=== PATIENT | male | born 1975 | race Caucasian/White ===

== ENCOUNTER 2020-10-02 11:01 | Outpatient (REF) | payer OTHER, SELFPAY ==
--- NOTE | 2020-10-02 | CT_ITS ---
EXAMINATION: CT SINUS WITHOUT CONTRAST CLINICAL INFORMATION: Recurrent sinusitis. COMPARISON: None TECHNIQUE: Axial 2 mm thin and reformatted 2 mm thin sagittal and coronal images of the sinuses were obtained. This CT examination was performed using dose optimization techniques as appropriate, variously including the following: *Automated exposure control *Adjustment of mA and/or kV according to patient size (this includes techniques or standardized protocols for targeted exams where dose is matched to indication/reason for exam; i.e. extremities or head) *Use of iterative reconstruction technique DLP: 123 mGy-cm FINDINGS: There is mild mucoperiosteal thickening in the left frontal, right sphenoid and right middle ethmoid sinuses. The rest of the paranasal sinuses are clear. A small sinolith is seen in the left frontal sinus. The bony sinus stephenson are intact. The lamina papyracea and the cribriform plate are normal. The bilateral ostiomeatal complexes and the frontoethmoidal recesses are widely patent. NASAL CAVITY/NASOPHARYNX: Mild deviation of the nasal septum to the left with a small bony spur is noted. The turbinates are symmetrical and normal. ADDITIONAL RELEVANT FINDINGS: No periapical disease is seen. The TMJs articulate normally. The orbits and skull base soft tissues are unremarkable. The middle ear cavities and mastoid air cells are clear. Limited evaluation demonstrates no acute intracranial findings. CT/CT sinus wo con IMPRESSION: Mild mucoperiosteal thickening in the left frontal, right ethmoid and right sphenoid sinuses. The drainage pathways are widely patent. Suspect a small sinolith in the left frontal sinus.
== END 2020-10-02 11:02 | disposition home or self-care (01) ==
LOC: HO.CT 11:01
PROVIDERS: PCP Nurse Practitioner Family; Visit Provider Hospitalist
DX: J32.9 Chronic sinusitis, unspecified (principal)
CPT/HCPCS: 70486

== ENCOUNTER → 2020-10-10 14:59 | Outpatient (BNVA) | payer OTHER, SELFPAY | PROVIDERS: PCP Nurse Practitioner Family; Visit Provider Internal Medicine | DX: I25.10 Atherosclerotic heart disease of native coronary artery without angina pectoris (principal); E66.01 Morbid (severe) obesity due to excess calories; Z68.42 Body mass index [BMI] 45.0-49.9, adult; Z79.899 Other long term (current) drug therapy; Z95.5 Presence of coronary angioplasty implant and graft | CPT/HCPCS: 99212 ==

== ENCOUNTER 2021-03-27 10:34 | Outpatient (REF) | payer OTHER, SELFPAY ==
--- NOTE | ~2021-03-27 | US_ITS ---
EXAMINATION: US ABDOMEN COMPLETE CLINICAL INFORMATION: Upper abdominal pain, unspecified. COMPARISON: None TECHNIQUE: Real-time imaging of the abdominal viscera. Examination mildly limited secondary to overlying bowel gas. FINDINGS: PANCREAS: Partially visualized portions of the pancreatic head are normal in appearance. ABDOMINAL AORTA: Visualized portion of the proximal, mid and distal abdominal aorta are normal in caliber. INFERIOR VENA CAVA: Visualized portions are normal. LIVER: The liver is normal in size. The liver contour is normal. Liver echogenicity is diffusely increased. No focal hepatic lesion. There is no intrahepatic biliary duct dilatation seen. GALLBLADDER: The gallbladder is physiologically distended. There are a few areas of minimal gallbladder wall thickening with at least one punctate calcification within the gallbladder wall. Some ill-defined echogenic foci of the posterior gallbladder wall possibly represent calcifications or layering tiny gallstones/gravel. Negative sonographic Lopez's sign. COMMON BILE DUCT: Normal in caliber measuring 0.5 cm in diameter. RIGHT KIDNEY: Normal. No hydronephrosis. No renal calculi or focal parenchymal lesions. The kidney measures 12.5 cm in maximum dimension. LEFT KIDNEY: The kidney measures 12.3 cm in maximum dimension. There is a 1.5 cm midpole cyst with what appears to be a peripheral associated 4 mm calcification. No renal calculi or hydronephrosis. SPLEEN: The spleen measures 12.6 cm in maximum dimension. FREE FLUID: None. US/US abdomen complete IMPRESSION: 1. Diffusely increased liver echogenicity. This is a nonspecific finding but most suggestive of hepatic steatosis. Correlation with liver enzymes recommended. 2. Mild areas of gallbladder wall thickening with suspected mild areas of gallbladder wall calcification versus layering tiny gallstones/gravel. The differential includes but is not limited to adenomyomatosis and cholelithiasis. Clinical correlation recommended. Follow-up ultrasound imaging can be obtained. CT imaging of the abdomen may also provide additional diagnostic information. 3. Small 1.5 cm cyst of the left kidney with associated 4 mm calcification.
[2021-03-27 14:05] LABS: MANUAL DIFF FLAG NO
[2021-03-27 14:16] LABS: Basophils Percent Auto 0.4 % (0-2); Eosinophils Absolute Auto 0.1 X10*3/uL (0.0-0.4); Eosinophils Percent Auto 1.4 % (0-4); Hematocrit 48.5 % (42-52); Hemoglobin 16.3 g/dl (14.0-18.0); Imm Gran Abs Auto 0.04 X10*3/uL (0.00-0.03); Imm Gran Pct Auto 0.4 % (0.0-0.4); Lymphocytes Absolute Auto 1.6 X10*3/uL (1.2-4.9); Lymphocytes Percent Auto 18.1 % (20-40); Mean Corpuscular HGB Conc 33.6 g/dl (31.0-36.0); Mean Corpuscular Hemoglobin 28.2 pg (27.0-33.0); Mean Corpuscular Volume 84.1 fL (80-98); Mean Platelet Volume 11.2 fL (9.4-12.4); Monocytes Absolute Auto 0.8 X10*3/uL (0.1-1.2); Monocytes Percent Auto 8.9 % (2-11); Neutrophils Absolute Auto 6.4 X10*3/uL (2.0-8.3); Neutrophils Percent Auto 70.8 % (45-73); Platelet Count 249 X10*3/uL (160-400); Red Blood Count 5.77 X10*6/uL (4.60-5.80); Red Cell Distribution Width 13.2 % (11.0-16.0); White Blood Count 9.1 X10*3/uL (4.8-10.8)
[2021-03-27 14:45] LABS: Alanine Aminotransferase 650 U/L (0-40); Albumin Level 4.7 g/dL (3.5-5.0); Alkaline Phosphatase 249 U/L (39-117); Amylase 66 U/L (28-100); Anion Gap 14 (12-20); Aspartate Amino Transferase 369 U/L (5-37); Bilirubin Total 3.3 mg/dL (0.0-1.0); Blood Urea Nitrogen 15 mg/dL (9-16); Calcium 9.1 mg/dL (8.4-10.2); Carbon Dioxide 28 mmol/L (22-29); Chloride 102 mmol/L (96-108); Cholesterol 132 mg/dL; Estimated Glomerular Filt Rate > 60; Glucose Fasting 86 mg/dL (60-99); HDL Cholesterol 37 mg/dL; LDL Cholesterol Calculated 71 mg/dl; Lipase 28 U/L (8-78); Sodium 140 mmol/L (135-145); Total Protein 7.3 g/dL (6.5-8.0); Triglycerides 120 mg/dL
== END 2021-03-27 10:35 | disposition home or self-care (01) ==
LOC: HO.HMGCX 10:34
PROVIDERS: PCP Nurse Practitioner Family; Visit Provider Internal Medicine
DX: R10.10 Upper abdominal pain, unspecified (principal); I25.10 Atherosclerotic heart disease of native coronary artery without angina pectoris; E78.5 Hyperlipidemia, unspecified
CPT/HCPCS: 36415; 76700; 80053; 80061; 82150; 83690; 85025

== ENCOUNTER 2021-03-27 16:43 | Inpatient (IN) | payer OTHER, SELFPAY ==
--- NOTE | ~2021-03-27 | XR_ITS ---
EXAMINATION: XR CHEST CLINICAL INFORMATION: Cough COMPARISON: 11/03/2019 TECHNIQUE: Frontal view of the chest was obtained. FINDINGS: The lungs are well expanded. There is no focal consolidation, edema, or effusion. No pneumothorax. The cardiomediastinal silhouette is within normal limits. No acute osseous abnormality. XR/XR chest 1V IMPRESSION: Clear lungs.
--- NOTE | ~2021-03-27 | CT_ITS ---
EXAMINATION: CT ABDOMEN AND PELVIS WITH CONTRAST CLINICAL INFORMATION: Right upper quadrant/epigastric pain. Cholelithiasis with elevated enzymes. COMPARISON: Ultrasound from today. TECHNIQUE: Multidetector volumetric images were obtained from the superior aspect of the liver through the pubic symphysis following administration 85 mL of Omnipaque 350 intravenous contrast. Sagittal and coronal reformatted images were obtained on the technologist's workstation. Oral contrast: No This CT examination was performed using dose optimization techniques as appropriate, variously including the following: *Automated exposure control *Adjustment of mA and/or kV according to patient size (this includes techniques or standardized protocols for targeted exams where dose is matched to indication/reason for exam; i.e. extremities or head) *Use of iterative reconstruction technique DLP: 1255 mGy-cm FINDINGS: LUNG BASES: The visualized lung bases are unremarkable. LIVER, GALLBLADDER, AND BILIARY TREE: The liver is normal in size, shape, and attenuation. No focal hepatic lesion or biliary ductal dilatation is present. Contracted gallbladder with multiple gallstones. Stones in the gallbladder neck. Suspect gallbladder wall thickening. No pericholecystic fluid. PANCREAS: Unremarkable. SPLEEN: Unremarkable. ADRENAL GLANDS: Unremarkable. KIDNEYS AND URETERS: The kidneys are normal in size, shape, and attenuation. No hydronephrosis, hydroureter, or calculi seen. No perinephric stranding. Left midpole 1.1 cm simple cyst. No follow-up recommended. BLADDER: Unremarkable. GASTROINTESTINAL TRACT: The stomach is unremarkable. Normal caliber small bowel. No obstruction. Normal appendix. No colonic wall thickening or acute inflammatory change. ABDOMINAL WALL: No significant hernia is appreciated. LYMPH NODES: Normal. VASCULAR: Normal caliber aorta with mild atherosclerotic calcification. PELVIC VISCERA: The prostate and seminal vesicles are unremarkable. OSSEOUS STRUCTURES: No acute or suspicious osseous abnormality. Mild degenerative changes of the spine and hips. CT/CT abdomen pelvis w con IMPRESSION: Cholelithiasis. Contracted gallbladder which limits evaluation of the gallbladder wall, but the wall appears thickened. This may represent cholecystitis given the appearance on prior ultrasound as well.
--- NOTE | ~2021-03-27 | FL_ITS ---
EXAMINATION: XR FLUOROSCOPY WITH IMAGES. Intraoperative cholangiogram. CLINICAL INFORMATION: Cholecystitis. COMPARISON: CT scan abdomen pelvis 03/27/2021. Ultrasound of abdomen 03/27/2021 TECHNIQUE: Fluoroscopy performed by Dr. Salinas. Fluoroscopy time: 30.4 seconds DAP: 19.52 mGy Images: 4 FINDINGS: Spot views obtained over the right upper quadrant after contrast injected into cystic duct. There is good opacification of the CBD and intrahepatic ducts with no filling defect. There is no ductal stricture or evidence of a mass. Contrast seen flowing into the duodenum without obstruction of the bile duct. FL/FL guidance in OR IMPRESSION: Normal intraoperative cholangiogram.
[2021-03-27 17:07] VITALS: BP 198/94; PULSE 89; RESP 16; TEMP 36.6; O2SAT 98; BMI 46.0
--- NOTE | 2021-03-27 21:47 | ED_ITS ---
HPI - Recheck/Abnormal Lab/Rx General Chief Complaint: Recheck/Abnormal Lab/Rx Stated Complaint: abnormal labs Time Seen by Provider: 03/27/21 21:45 Source: patient Mode of arrival: ambulatory History of Present Illness HPI narrative: This is a 45-year-old male with significant past medical history for CAD has had a stent and now presents with increasing frequency of right upper quadrant/epigastric pain with radiation into the back and denies regular alcohol use and this is been associated with chills as well as nausea without vomiting. Patient states in the past it would continue to subside but last night was very strong and when he was evaluated by his primary care provider today he was noted to have elevated liver enzymes and evidence on ultrasound of cholelithiasis. He was instructed to come in by his primary care provider for further evaluation. Related Data Home Medications Medication Instructions Recorded Confirmed aspirin 81 mg tablet,delayed 81 mg PO DAILY 10/10/20 03/27/21 release cetirizine 10 mg tablet 10 mg PO DAILY 10/10/20 03/27/21 Previous Rx's Medication Instructions Recorded cholecalciferol (vitamin D3) 50 50 mcg PO DAILY 90 Days #90 tab 10/30/20 mcg (2,000 unit) tablet metoprolol succinate 50 mg 50 mg PO DAILY #90 tab 10/30/20 tablet,extended release 24 hr amlodipine 10 mg tablet 10 mg PO DAILY #30 tab 11/27/20 clopidogrel 75 mg tablet 75 mg PO DAILY #90 tab 02/21/21 atorvastatin 80 mg tablet 80 mg PO DAILY #90 tab 03/21/21 omeprazole 40 mg capsule,delayed 40 mg PO DAILY #30 cap 03/27/21 release Allergies Allergy/AdvReac Type Severity Reaction Status Date / Time No Known Allergies Allergy Verified 03/27/21 09:47 Review of Systems Review of Systems: Pertinent positives and negatives as stated in HPI and 10 point review of systems is otherwise negative. [facility] Past Medical History Source: nursing notes reviewed Medical History Atherosclerotic cardiovascular disease Dyslipidemia Essential hypertension Morbid obesity CAROLYN (obstructive sleep apnea) Upper abdominal pain Surgical History History of cardiac catheterization (~08/2018) History of tonsillectomy Family History Family History Father Hypertension Social History Social History Alcohol intake: never Smoking Status: Former smoker Advance Directives: No Advance Directives Information Provided: Yes Physical Exam Vital Signs: Vital Signs: Last Vital Signs Temp 97.6 F 03/28/21 01:40 Pulse 70 03/28/21 01:40 Resp 18 03/28/21 01:40 BP 153/87 H 03/28/21 01:40 Pulse Ox 98 03/28/21 01:40 Body Mass Index 46.0 VITAL SIGNS: Reviewed. GENERAL: Morbidly obese, Well developed, well nourished, in no acute distress. HEAD: Normocephalic/atraumatic, EYES: PERRLA, EOMI OROPHARYNX: no oral lesions noted, posterior pharynx clear NECK: Supple, no adenopathy LUNGS: Normal breath sounds. No adventitious sounds or accessory muscle use. SpO2<98> CARDIOVASCULAR: Regular rate and rhythm without noted murmurs, no JVD or lower extremity edema. ABDOMEN: Soft, minimal right upper quadrant pain, non-distended with bowel sounds, no CVA tenderness. SKIN: Inspection of the skin reveals no rashes NEUROLOGIC: Alert and oriented x 4. Course Course Course Narrative: 45-year-old male with history and clinical presentation consistent with cholelithiasis with elevated enzymes suggestive of possible Mirizzi. 0120: I discussed case again with surgical services who is agreeable for admission after lab work. Although there is a noted down trending of LFTs this may suggest an initial gallbladder insult. Reevaluation(s) Reevaluation #1: I discussed the case with Surgical Services, who recommends repeating the lab work, to see which direction patient's values are trending, but feels that this is not consistent with a more it sees or gallbladder etiology despite the presence of cholelithiasis. Time: 23:55 Reevaluation #2: Patient endorses that he does not drink alcohol and that he received the [employer] COVID-19 vaccine on 03/02/2021. Time: 00:10 MDM - Recheck/Abnormal Lab/Rx Lab Data Result diagrams: 03/28/21 00:21 03/28/21 00:21 Labs: Lab Results 04/03/28/21 03/28/21 Range/Units 22:33 00:21 00:21 WBC 10.1 (4.8-10.8) X10*3/uL RBC 5.65 (4.60-5.80) X10*6/uL Hgb 16.0 (14.0-18.0) g/dl Hct 47.5 (42-52) % MCV 84.1 (80-98) fL MCH 28.3 (27.0-33.0) pg MCHC 33.7 (31.0-36.0) g/dl RDW 13.2 (11.0-16.0) % Plt Count 236 (160-400) X10*3/uL MPV 10.4 (9.4-12.4) fL Immature Gran % (Auto) 0.2 (0.0-0.4) % Neut % (Auto) 66.9 (45-73) % Lymph % (Auto) 23.1 (20-40) % [place] % (Auto) 7.4 (2-11) % Eos % (Auto) 1.7 (0-4) % Baso % (Auto) 0.7 (0-2) % Lymph # (Auto) 2.3 (1.2-4.9) X10*3/uL [place] # (Auto) 0.7 (0.1-1.2) X10*3/uL Eos # (Auto) 0.2 (0.0-0.4) X10*3/uL Baso # (Auto) 0.1 (0.0-0.2) X10*3/uL Abs Immat Gran (auto) 0.02 (0.00-0.03) X10*3/uL Absolute Neuts (auto) 6.7 (2.0-8.3) X10*3/uL Absolute Nucleated RBC 0.000 (0.0-0.012) X10*3/uL Nucleated RBC % (auto) 0.0 (0.0-0.2) /100WBC PT 12.7 (10.8-13.0) SEC INR 1.1 (0.9-1.1) APTT 49.3 H (24.1-38.0) SEC Sodium 139 (135-145) mmol/L Potassium 3.9 (3.3-5.1) mmol/L Chloride 103 (96-108) mmol/L Carbon Dioxide 25 (22-29) mmol/L Anion Gap 15 (12-20) BUN 17 H (9-16) mg/dL Creatinine 1.30 (0.5-1.4) mg/dL Estim Creat Clear Calc 106.6 Estimated GFR 60 Random Glucose 87 (60-115) mg/dL Calcium 9.2 (8.4-10.2) mg/dL Total Bilirubin 1.8 H (0.0-1.0) mg/dL AST 279 H (5-37) U/L ALT 640 H (0-40) U/L Alkaline Phosphatase 295 H (39-117) U/L Total Protein 7.3 (6.5-8.0) g/dL Albumin 4.6 (3.5-5.0) g/dL COVID-19 (JOLIE) (Negative) COVID-19 Clin Com 03/28/21 Range/Units 01:03 WBC (4.8-10.8) X10*3/uL RBC (4.60-5.80) X10*6/uL Hgb (14.0-18.0) g/dl Hct (42-52) % MCV (80-98) fL MCH (27.0-33.0) pg MCHC (31.0-36.0) g/dl RDW (11.0-16.0) % Plt Count (160-400) X10*3/uL MPV (9.4-12.4) fL Immature Gran % (Auto) (0.0-0.4) % Neut % (Auto) (45-73) % Lymph % (Auto) (20-40) % [place] % (Auto) (2-11) % Eos % (Auto) (0-4) % Baso % (Auto) (0-2) % Lymph # (Auto) (1.2-4.9) X10*3/uL [place] # (Auto) (0.1-1.2) X10*3/uL Eos # (Auto) (0.0-0.4) X10*3/uL Baso # (Auto) (0.0-0.2) X10*3/uL Abs Immat Gran (auto) (0.00-0.03) X10*3/uL Absolute Neuts (auto) (2.0-8.3) X10*3/uL Absolute Nucleated RBC (0.0-0.012) X10*3/uL Nucleated RBC % (auto) (0.0-0.2) /100WBC PT (10.8-13.0) SEC INR (0.9-1.1) APTT (24.1-38.0) SEC Sodium (135-145) mmol/L Potassium (3.3-5.1) mmol/L Chloride (96-108) mmol/L Carbon Dioxide (22-29) mmol/L Anion Gap (12-20) BUN (9-16) mg/dL Creatinine (0.5-1.4) mg/dL Estim Creat Clear Calc Estimated GFR Random Glucose (60-115) mg/dL Calcium (8.4-10.2) mg/dL Total Bilirubin (0.0-1.0) mg/dL AST (5-37) U/L ALT (0-40) U/L Alkaline Phosphatase (39-117) U/L Total Protein (6.5-8.0) g/dL Albumin (3.5-5.0) g/dL COVID-19 (JOLIE) Negative (Negative) COVID-19 Clin Com See Note ECG Data Attestation: I personally reviewed and interpreted this ECG as follows: Prior ECG tracings: available for review (11/23/2018 no acute changes on comparison) Interpretation: Normal sinus rhythm, HR-76, no evidence of acute ischemia, CT/QRS were within normal limits. Discharge Plan Discharge Clinical Impression: Cholecystitis Patient Disposition: Admitted As Inpatient
--- NOTE | 2021-03-27 21:58 | PC.NURSE ---
at bedside for primary eval.
--- NOTE | 2021-03-27 22:34 | PC.NURSE ---
IV established, labs obtained. Pt ambulating to CT with a steady gait.
[2021-03-27 22:44] LABS: INTERNATIONAL NORM RATIO 1.1 (0.9-1.1); Prothrombin Time 12.7 SEC (10.8-13.0)
[2021-03-27] MEDS: iohexoL 350 MG/ML 100 ML INFUS..BTL IV (22:46)
[2021-03-27 22:49] LABS: Partial Thromboplastin Time 49.3 SEC (24.1-38.0)
[2021-03-28] VITALS (19 sets, daily range): BP systolic 141–180; BP diastolic 68–105; PULSE 66–87; RESP 16–20; TEMP 36.1–36.6; O2SAT 91–99; BMI 46.0
[2021-03-28 00:25] LABS: MANUAL DIFF FLAG NO
[2021-03-28 00:26] LABS: Basophils Absolute Auto 0.1 X10*3/uL (0.0-0.2); Basophils Percent Auto 0.7 % (0-2); Eosinophils Absolute Auto 0.2 X10*3/uL (0.0-0.4); Eosinophils Percent Auto 1.7 % (0-4); Hematocrit 47.5 % (42-52); Imm Gran Abs Auto 0.02 X10*3/uL (0.00-0.03); Imm Gran Pct Auto 0.2 % (0.0-0.4); Lymphocytes Absolute Auto 2.3 X10*3/uL (1.2-4.9); Lymphocytes Percent Auto 23.1 % (20-40); Mean Corpuscular HGB Conc 33.7 g/dl (31.0-36.0); Mean Corpuscular Hemoglobin 28.3 pg (27.0-33.0); Mean Corpuscular Volume 84.1 fL (80-98); Mean Platelet Volume 10.4 fL (9.4-12.4); Monocytes Absolute Auto 0.7 X10*3/uL (0.1-1.2); Monocytes Percent Auto 7.4 % (2-11); Neutrophils Absolute Auto 6.7 X10*3/uL (2.0-8.3); Neutrophils Percent Auto 66.9 % (45-73); Platelet Count 236 X10*3/uL (160-400); Red Blood Count 5.65 X10*6/uL (4.60-5.80); Red Cell Distribution Width 13.2 % (11.0-16.0); White Blood Count 10.1 X10*3/uL (4.8-10.8)
[2021-03-28 01:02] LABS: Alanine Aminotransferase 640 U/L (0-40); Albumin Level 4.6 g/dL (3.5-5.0); Alkaline Phosphatase 295 U/L (39-117); Anion Gap 15 (12-20); Aspartate Amino Transferase 279 U/L (5-37); Bilirubin Total 1.8 mg/dL (0.0-1.0); Blood Urea Nitrogen 17 mg/dL (9-16); Calcium 9.2 mg/dL (8.4-10.2); Carbon Dioxide 25 mmol/L (22-29); Chloride 103 mmol/L (96-108); Creatinine Clr Calc Pharmacy 106.6; Estimated Glomerular Filt Rate 60; Glucose Random 87 mg/dL (60-115); Potassium 3.9 mmol/L (3.3-5.1); Sodium 139 mmol/L (135-145); Total Protein 7.3 g/dL (6.5-8.0)
--- NOTE | 2021-03-28 01:22 | PC.NURSE ---
Pt refusing to provide UA.
--- NOTE | 2021-03-28 01:24 | PC.NURSE ---
MD at bedside discussing plan to admit.
[2021-03-28 01:25] LABS: COVID-19 Test Negative (Negative); IDNOW Serial# 9DD0AD1C
--- NOTE | 2021-03-28 01:38 | ECG_ITS ---
Test Reason : PREOP Blood Pressure : / mmHG Vent. Rate : 076 BPM Atrial Rate : 076 BPM P-R Int : 144 ms QRS Dur : 080 ms QT Int : 424 ms P-R-T Axes : 029 -02 027 degrees QTc Int : 477 ms Normal sinus rhythm Normal ECG When compared with ECG of 23-NOV-2018 01:02, No significant change was found Referred By: Amara Burkett Electronically Signed By:SHERIE ERIC MD
[2021-03-28 02:16] LABS: INTERNATIONAL NORM RATIO 1.1 (0.9-1.1); Prothrombin Time 12.9 SEC (10.8-13.0)
[2021-03-28] MEDS: 0.9 % Sodium Chloride 1,000 ML 80 ML IVCONT ×2 (02:24→20:05)
[2021-03-28] MEDS: Piperacillin Sodium/Tazobactam 3.375 GM in 0.9 % Sodium Chloride 50 ML IV ×3 (02:24→18:47)
--- NOTE | 2021-03-28 02:24 | PC.NURSE ---
This RN contacting MD Salinas regarding BCX. Per , no BCX needed prior to administering Zosyn. septic technician at bedside for EKG. Pt aware of pending UA. Continue to monitor.
[2021-03-28] MEDS: amLODIPine Besylate 10 MG TABLET PO (02:42)
[2021-03-28] MEDS: Omeprazole 40 MG CAPSULE.DR PO (02:42)
[2021-03-28] MEDS: Atorvastatin Calcium 80 MG TABLET PO (02:43)
[2021-03-28] MEDS: Metoprolol Succinate ER 50 MG TAB.ER.24H PO (02:43)
--- NOTE | 2021-03-28 02:44 | PC.NURSE ---
Medicated per MAR. VSS.
--- NOTE | 2021-03-28 03:23 | PC.NURSE ---
Med Rec complete at bedside with pt.
--- NOTE | 2021-03-28 05:43 | PC.NURSE ---
UA obtained and sent.
[2021-03-28 05:51] LABS: Glucose Urine UA NEG (NEG); Leukocyte Esterase Urine NEG (NEG); Nitrite Urine NEG (NEG); PH 5.5 (5.0-8.0); Specific Gravity - Urine 1.015 (1.005-1.025); Urine Blood NEG (NEG); Urine Ketones NEG (NEG); Urine Protein NEG (NEG-TRACE)
[2021-03-28 05:56] LABS: Appearance Urine CLEAR; Color Urine AMBER; UACC Culture Trigger NO
[2021-03-28] MEDS: Lactated Ringers 1,000 ML 20 ML IVCONT (13:24)
--- NOTE | 2021-03-28 14:00 | PM.HPGS ---
History of Present Illness History of Present Illness Date of Service: 03/28/21 Chief complaint: Cholecystitis Narrative: Kin Calderón is a 45 year old male with a 2 to three-month history of epigastric pain that was 7 to 8/10 on a pain scale and stabbing in nature. He reports the pain would radiate to his back. This pain is intermittent and may be associated with eating although he cannot remember if it is associated with the eating because he did not keep track. He is not sure whether fatty foods or other types of foods make it worse. Patient was evaluated by his primary care doctor and sent for an ultrasound and blood work yesterday. His blood work showed a total bilirubin in the 3 range with AST and ALT that are also elevated in the 300-600 range. Patient had a right upper quadrant ultrasound that showed gallstones in the gallbladder with no definitive gallbladder wall thickening or pericholecystic fluid. Patient reports he continued to have epigastric pain and came to the emergency department yesterday for this pain. Patient reports his last meal was 2 days ago. His pain ended around 17:00 last evening while he was being evaluated in the emergency department. He reports he has had no further abdominal pain since being in the emergency department. Patient denies any excessive flatulence, fever, chills, shortness of breath, chest pain. Patient reports having normal bowel habits and denies any changes in urination. Patient had a CT scan abdomen and pelvis when he came to the emergency department which corroborated findings on ultrasound there was no evidence of biliary duct dilation. Patient had repeat liver function test which showed a decreasing bilirubin now down to 1.8 from 3 and half range also with decreasing AST but ALT was about the same. Of note the patient does have a history of coronary artery stenting in 2007 for which he takes aspirin and Plavix which he has not taken in about 24 hours. Review of Systems Constitutional: Constitutional: Denies chills, Denies difficulty sleeping, Denies excessive sweating, Denies fatigue, Denies fever(s), Denies headache(s), Denies night sweats, Denies weakness and Denies weight loss Eyes: Eyes: Denies blurry vision, Denies diplopia and Denies eye discharge ENT: Reports Normal hearing present, Denies change in voice, Denies headache(s), Denies neck mass, Denies sore throat, Denies throat swelling and Denies tongue swelling Cardiovascular: Cardiovascular: Denies chest pain, Denies chest pain at rest, Denies chest pain with activity, Denies edema, Denies leg edema and Denies dyspnea on exertion Respiratory: Respiratory: Denies cough, Denies excessive phlegm production, Denies dyspnea on exertion, Denies stridor and Denies wheezing Gastrointestinal: Gastrointestinal: Reports abdominal pain, Denies melena, Denies bloating, Denies hematochezia, Denies constipation, Denies heartburn, Denies nausea and Denies vomiting Genitourinary: Genitourinary: Denies hematuria, Denies dysuria, Denies urinary hesitancy, Denies urinary incontinence and Denies urinary urgency Musculoskeletal: Musculoskeletal: Denies back pain, Denies arthralgias and Denies muscle weakness Integumentary/Breasts: Skin/Breast: Denies breast swelling, Denies breast pain, Denies breast mass, Denies change in pigmentation, Denies new lesions and Denies rash Neurologic: Reports Normal hearing present, Denies confusion, Denies headache(s), Denies lack of coordination, Denies focal weakness, Denies paresthesias and Denies weakness Psychiatric: Psychiatric: Denies anxiety, Denies confusion and Denies depression Endocrine: Endocrine: Denies cold intolerance, Denies excessive sweating and Denies fatigue Hematologic/Lymphatic: Hematologic/Lymphatic: Denies easy bleeding, Denies easy bruising and Denies lymphadenopathy Allergic/Immunologic: Allergic/Immunologic: Denies urticaria, Denies throat swelling, Denies tongue swelling and Denies wheezing PMFSH Past Medical History Medical History (Updated 03/28/21 @ 14:06 by Roslyn Montenegro MD) Atherosclerotic cardiovascular disease Cholelithiasis Dyslipidemia Essential hypertension Morbid obesity CAROLYN (obstructive sleep apnea) Family History Family History (Updated 03/28/21 @ 14:09 by Roslyn Montenegro MD) Father Hypertension Coronary artery disease Kidney failure Mother No problems noted. Maternal Grandfather Coronary artery disease History of heart attack Brother Crohn's disease Sister No problems noted. Sister No problems noted. Sister No problems noted. Surgical History Surgical History (Updated 03/28/21 @ 14:06 by Roslyn Montenegro MD) History of arthroscopy of left knee History of cardiac catheterization (~08/2018) History of heart artery stent History of tonsillectomy Social History Social History (Updated 03/28/21 @ 14:11 by Roslyn Montenegro MD) Alcohol intake: current Alcohol intake frequency: holidays/special occasions only Smoking Status: Current every day smoker Packs Per Day: 1 Years Smoked: 30 Smoked in Last 30 Days: Yes Patient Interested in Nicotine Replacement: No Use of substances other than those prescribed or required for medical reasons: No Advance Directives: No Advance Directives Information Provided: Yes Recently lost weight without trying: No Meds Allergies Allergy/AdvReac Type Severity Reaction Status Date / Time No Known Allergies Allergy Verified 03/28/21 14:11 Active Medications: Current Medications Generic Name Dose Route Start Last Admin Trade Name Freq PRN Reason Stop Dose Admin Acetaminophen 650 mg 03/28/21 01:29 Acetaminophen Supp 650 Mg Supp.Rect SC Q6H PRN Fever >100.4 Amlodipine Besylate 10 mg 03/29/21 09:00 Amlodipine Besylate 10 Mg Tablet PO DAILY [facility] Protocol Aspirin 81 mg 03/29/21 09:00 Aspirin Enteric Coated 81 Mg Tablet.Dr PO DAILY [facility] Atorvastatin Calcium 80 mg 03/29/21 09:00 Atorvastatin Calcium 80 Mg Tablet PO DAILY [facility] Diphenhydramine HCl 25 mg 03/28/21 01:29 Diphenhydramine Hcl 25 Mg Tablet PO Q4H PRN itching Sodium Chloride 1,000 mls @ 80 mls/hr 03/28/21 01:30 03/28/21 02:24 Ns IVCONT 80 mls/hr .[id number] ABY Administration Piperacillin Sod/Tazobactam 50 mls @ 100 mls/hr 03/28/21 10:00 03/28/21 12:22 Sod 3.375 gm/ Sodium Chloride IV Infused Q6H ABY Infusion Loratadine 10 mg 03/29/21 09:00 Loratadine 10 Mg Tablet PO DAILY [facility] Metoprolol Succinate 50 mg 03/29/21 09:00 Metoprolol Succinate Er 50 Mg Tab.Er.24h PO DAILY [facility] Protocol Morphine Sulfate 2 mg 03/28/21 01:29 Morphine Sulfate 2 Mg/Ml Cartridge IVPUSH Q3H PRN Pain, Moderate (Pain Scale 4-6 Morphine Sulfate 4 mg 03/28/21 01:29 Morphine Sulfate 4 Mg/Ml Cartridge IVPUSH Q3H PRN Pain, Severe (Pain Scale 7-10) Ondansetron HCl 4 mg 03/28/21 01:29 Ondansetron Hcl 4 Mg/2 Ml Vial IVPUSH Q4H PRN Nausea Oxycodone HCl 5 mg 03/28/21 01:29 Oxycodone Hcl Immed Release 5 Mg Tablet PO Q3H PRN Pain, Moderate (Pain Scale 4-6 Oxycodone HCl 10 mg 03/28/21 01:29 Oxycodone Hcl Immed Release 5 Mg Tablet PO Q3H PRN Pain, Severe (Pain Scale 7-10) Sodium Chloride 3 ml 03/28/21 08:00 0.9 % Sodium Chloride Flush 3 Ml Syringe [facility] Home Medications Medication Instructions Recorded Confirmed Last Taken Type aspirin 81 mg tablet,delayed 81 mg PO DAILY 10/10/20 03/28/21 03/26/21 History release cetirizine 10 mg tablet 10 mg PO DAILY 10/10/20 03/28/21 03/26/21 History Physical Exam Vital Signs: Vital Signs: Last Vital Signs Temp 97.8 F 03/28/21 13:27 Pulse 66 03/28/21 13:27 Resp 16 03/28/21 13:27 BP 180/94 H 03/28/21 13:27 Pulse Ox 98 03/28/21 13:27 Body Mass Index 46.0 Const: General: No confusion Orientation/consciousness: patient oriented x3 and No confusion HENMT: Head: Yes normal to inspection, Yes normocephalic and Yes atraumatic Ears: hearing grossly normal bilaterally Mouth: Normal oral and palatal mucosa present Teeth and gingiva: dentition normal Throat: Yes posterior oropharynx normal Eyes: General: appearance normal, both eyes and all related structures Eyelids: Yes eyelids normal Conjunctivae: conjunctivae normal Sclerae: sclerae normal EOM: EOMs intact bilaterally Neck: Neck: Yes normal visual inspection, Yes full ROM, Yes no lymphadenopathy, Yes trachea midline and Yes no JVD Thyroid: Thyroid normal Lymphatic: no lymphadenopathy noted Resp: Effort & Inspection: normal respiratory effort and able to speak in complete sentences Auscultation: clear to auscultation bilaterally Cardio: Jugular venous distension: no JVD Rate: regular rate Heart sounds: S1 normal heart sound present, S2 normal heart sound present, no click, no gallops, no murmurs and no rubs GI: Inspection: No Abdominal wall edema, No distended, No incision and Yes obesity Palpation (GI): Soft to palpation, nontender, no guarding, not rigid, hepatosplenomegaly present, no hernias and no masses Percussion: Yes normal to percussion Rectal Exam - Male: Yes deferred Skin: General skin exam: no rashes or lesions noted Trauma: no lacerations or abrasions Neuro: General: patient oriented x3, no focal motor deficits and No confusion Cranial nerves: Yes Normal hearing present Cognition (Neuro): normal cognition Extrem: General: Yes normal to inspection, Yes full ROM, Yes no clubbing, cyanosis or edema, Yes no pedal edema and Yes no calf tenderness Results Results Labs: Short CBC 03/28/21 Range/Units 00:21 WBC 10.1 (4.8-10.8) X10*3/uL Hgb 16.0 (14.0-18.0) g/dl Hct 47.5 (42-52) % Plt Count 236 (160-400) X10*3/uL BMP 03/28/21 00:21 Sodium 139 Potassium 3.9 Chloride 103 Carbon Dioxide 25 BUN 17 H Creatinine 1.30 Calcium 9.2 Liver Function 03/28/21 Range/Units 00:21 Total Bilirubin 1.8 H (0.0-1.0) mg/dL AST 279 H (5-37) U/L ALT 640 H (0-40) U/L Alkaline Phosphatase 295 H (39-117) U/L Albumin 4.6 (3.5-5.0) g/dL Urine 03/28/21 Range/Units 05:43 Urine Color ROBBY Urine Appearance CLEAR Urine pH 5.5 (5.0-8.0) Ur Specific [place] 1.015 (1.005-1.025) Urine Protein NEG (NEG-TRACE) MG/DL Urine Glucose (UA) NEG (NEG) MG/DL Assessment and Plan (1) Cholecystitis: Status: Acute This is a 45-year-old gentleman with 2-3 months history of likely biliary colic who presented yesterday with worsening epigastric abdominal pain and was found to have elevated bilirubins. Ultrasound shows possible focal mild thickening of the gallbladder wall which may be an early cholecystitis but is likely not given that the patient has no clinical symptoms currently. Patient's bilirubins are decreasing as well as some of the other liver function tests. Patient may have had a common bile duct stone that he passed. We will take the patient to the operating room for laparoscopic cholecystectomy with intraoperative cholangiogram if that can be performed to rule out common bile duct stone. If there is a common bile duct stone that is found the patient will have a postoperative ERCP. If there is no common bile duct stone found we will repeat liver function test tomorrow and slowly advance patient's diet. We have held aspirin and Plavix and I plan to restart aspirin postoperatively but to hold Plavix for another couple of days postoperatively. Risks benefits and alternatives were discussed with the patient and he agrees to proceed. I spent 1 hour of time with this patient performed a history and physical examination reviewing all laboratory values and radiologic studies and discussing this case with his cell biologist as well as documenting. (2) Atherosclerotic cardiovascular disease: Status: Acute Patient has a history of coronary artery stent his cell biologist is Dr. Rodgers. I have discussed this case with his cell biologist and he reports the patient is able to proceed with surgery but should have aspirin restarted postoperatively. We will follow these recommendations.
--- NOTE | 2021-03-28 17:30 | PM.OP ---
Brief Operative Note Date of Service: 03/28/21 Pre-op diagnosis: Elevated liver function tests and cholelithiasis Post-op diagnosis: same Procedure: Laparoscopic cholecystectomy with intraoperative cholangiogram Implants: Surgical clips Surgeon: Roslyn Montenegro MD Anesthesia: GETA Estimated blood loss (mL): 5 Pathology: other (Gallbladder) Condition: stable Disposition: PACU
--- NOTE | 2021-03-28 17:31 | P.OP_ITS ---
Operative Note Operative Note Date of Service: 03/28/21 Narrative: Patient was brought into the operating room, placed on operating table in the supine position. Normal DVT prophylaxis was instituted. Patient received 3.375 g of IV Zosyn preoperatively. General anesthesia was induced. The abdomen was prepped and draped in the normal sterile fashion using ChloraPrep. A safety time-out was performed. Next a mixture of 1% lidocaine with epinephrine and 0.25% Marcaine plain was used to anesthetize the planned incision site in the supraumbilical position. A 11. Scalpel was used to make a 2 cm supraumbilical l transverse surgical incision through which the subcutaneous tissues were dissected down to level the fascia. The fascia was grasped did between 2 Janeth clamps and entered using a 11. Scalpel for about 1 cm vertically. An 0 Vicryl suture was placed on either side of the open fascia. A finger was used to bluntly gain access to the intra-abdominal cavity. A 12 mm Altamirano trocar was introduced into the abdomen and secured to the abdominal wall using sutures on the fascia. The abdomen was insufflated to 15 mmHg. Next a 5 mm 30 degree laparoscope was introduced into the abdomen and used to survey the abdominal cavity which was normal. Next 3 additional 5 mm ports were placed. One port was placed in the epigastrium to the right of the falciform ligament, 2 ports were placed in the right upper quadrant 1 laterally and 1 more medially. The patient was placed in reverse Trendelenburg and left side tilted down. A grasper was placed through the right lateral port and used to grasp the fundus of the gallbladder and retracted it cephalad. Another grasper was used to grasp the infundibulum of the gallbladder retracted inferior and laterally. We cleared the cystic artery and cystic duct circumferentially and the distal 1/3 of the gallbladder with the gallbladder fossa. This gave us the critical view of safety. We created a small incision using laparoscopic scissors in the cystic duct. We placed an aero catheter in the right upper quadrant abdominal wall and placed the angio catheter through this air 0 cholangiocatheter. We placed the cholangiocatheter into the cystic duct and kept in place using a 5 mm clip roller staker. We flushed the duct with normal saline and there was no evidence of any leakage from the opening in the cystic duct. We then removed all of her laparoscopic ports and the camera and performed an on-table cholangiogram. There was normal filling of the common bile duct and the proximal biliary tree and normal emptying of the bile into the small intestine. There was no evidence of filling defects. We did obtain a formal radiologic read that document to the same. We then removed the cholangiocatheter and clip on the cystic duct. We then placed 3 clips on the cystic duct distal to the gallbladder 1 clip on the cystic duct proximal to the gallbladder. We placed 1 clip on the cystic artery proximal to the gallbladder and 2 clips on the cystic artery distal to the gallbladder and transected both structures in between clips. We took the remainder of the gallbladder off the gallbladder fossa and placed in Endo-Catch bag and removed it from the abdomen. We then evaluated the gallbladder fossa it was hemostatic there was no evidence of any bile draining or any bleeding noted. The clips were in place on the cystic artery and cystic duct stumps. We then removed the 5 mm ports under direct vision there was no bleeding noted from these port sites. We desufflated the abdomen through the last remaining port and removed the last port and laparoscope. We reapproximated the fascial defect at the umbilicus using a [id number] 0 Vicryl suture and tied the original fascial sutures over that closure. There was no residual fascial defect. We placed an additional amount of local anesthetic into the fascia closure site. We closed all skin incisions with a 4 Monocryl subcuticular stitch. We cleaned and dried the skin and applied Dermabond skin glue to all skin incisions. All counts were correct at the end the case there were no complications. The patient was awake and in stable condition prior to extubation and transfer to the recovery room.
--- NOTE | 2021-03-28 17:35 | P.DS_ITS ---
DS: Providers Provider Date of Service: 03/29/21 Date of admission: 03/28/21 01:58 Date of discharge: 03/28/21 Primary care physician: Micky Palacios [facility] Admitting clinician: Roslyn Montenegro Attending physician on admission: Roslyn Montenegro Consults: None Attending physician on discharge: Roslyn Montenegro Discharging clinician: Roslyn Montenegro DS: Diagnosis Discharge Diagnosis (1) Cholelithiasis: Status: Acute (2) Elevated liver function tests: Status: Acute DS: Medications Discharge Medications Home Medications: Home Medications Medication Instructions Recorded Confirmed aspirin 81 mg tablet,delayed 81 mg PO DAILY 10/10/20 03/28/21 release cetirizine 10 mg tablet 10 mg PO DAILY 10/10/20 03/28/21 Previous Rx's Medication Instructions Recorded cholecalciferol (vitamin D3) 50 50 mcg PO DAILY 90 Days #90 tab 10/30/20 mcg (2,000 unit) tablet metoprolol succinate 50 mg 50 mg PO DAILY #90 tab 10/30/20 tablet,extended release 24 hr amlodipine 10 mg tablet 10 mg PO DAILY #30 tab 11/27/20 clopidogrel 75 mg tablet 75 mg PO DAILY #90 tab 02/21/21 atorvastatin 80 mg tablet 80 mg PO DAILY #90 tab 03/21/21 DS: Summary Hospital Course Hospital Course: This is a 45-year-old gentleman who was admitted on the [employer]person flowers 03/28/2021 with elevated liver function tests with a total bilirubin and a 3 and half range and several month history of epigastric pain. Patient had an ultrasound that showed gallstones. Repeat liver function test did show an improvement in b ilirubins and transaminases. Bilirubin decreased to 1.8. Patient was no longer having abdominal pain but given the elevation in liver function tests and gallstones on ultrasound there was a question of whether there was a common bile duct stone. Patient was taken to the operating room for laparoscopic cholecystectomy with intraoperative cholangiogram to rule out common bile duct stones. Patient tolerated the procedure well and had a laparoscopic cholecystectomy uneventfully. Intraoperative cholangiogram showed no evidence of common bile duct filling defect and no evidence of obstruction. Patient was transferred to the postanesthesia care unit was started on a diet. Patient stayed overnight given some abdominal discomfort and some nausea after surgery. On postoperative day 1. The patient is tolerating regular diet and was discharged home. Patient was offered smoking cessation which he refused. Time spent discussing smoking cessation with patient: 3 to 10 minutes Status at Discharge Functional status at discharge: independent ambulation Overall status at discharge: patient is back to baseline Time Spent with Patient Time attestation: Total time spent providing and/or coordinating discharge services: Discharge coordination time: Less than 30 minutes Physical Exam Vital Signs: Vital Signs: Last Vital Signs Temp 97.8 F 03/28/21 13:27 Pulse 66 03/28/21 13:27 Resp 16 03/28/21 13:27 BP 180/94 H 03/28/21 13:27 Pulse Ox 98 03/28/21 13:27 Body Mass Index 46.0 Const: Other: Please see full H&P dictated on the same date for full physical exam DS: Data Data Completed and Pending Labs on day of discharge: Laboratory Results - last 24 hr 03/27/21 03/28/21 03/28/21 22:33 00:21 00:21 WBC 10.1 RBC 5.65 Hgb 16.0 Hct 47.5 MCV 84.1 MCH 28.3 MCHC 33.7 RDW 13.2 Plt Count 236 MPV 10.4 Immature Gran % (Auto) 0.2 Neut % (Auto) 66.9 Lymph % (Auto) 23.1 [place] % (Auto) 7.4 Eos % (Auto) 1.7 Baso % (Auto) 0.7 Lymph # (Auto) 2.3 [place] # (Auto) 0.7 Eos # (Auto) 0.2 Baso # (Auto) 0.1 Abs Immat Gran (auto) 0.02 Absolute Neuts (auto) 6.7 Absolute Nucleated RBC 0.000 Nucleated RBC % (auto) 0.0 PT 12.7 INR 1.1 APTT 49.3 H Sodium 139 Potassium 3.9 Chloride 103 Carbon Dioxide 25 Anion Gap 15 BUN 17 H Creatinine 1.30 Estim Creat Clear Calc 106.6 Estimated GFR 60 Random Glucose 87 Calcium 9.2 Total Bilirubin 1.8 H AST 279 H ALT 640 H Alkaline Phosphatase 295 H Total Protein 7.3 Albumin 4.6 Urine Color Urine Appearance Urine pH Ur Specific [place] Urine Protein Urine Glucose (UA) Urine Ketones Urine Blood Urine Nitrite Ur Leukocyte Esterase COVID-19 (JOLIE) COVID-19 Clin Com Blood Type Antibody Screen 03/28/21 03/28/21 03/28/21 01:03 02:05 02:05 WBC RBC Hgb Hct MCV MCH MCHC RDW Plt Count MPV Immature Gran % (Auto) Neut % (Auto) Lymph % (Auto) [place] % (Auto) Eos % (Auto) Baso % (Auto) Lymph # (Auto) [place] # (Auto) Eos # (Auto) Baso # (Auto) Abs Immat Gran (auto) Absolute Neuts (auto) Absolute Nucleated RBC Nucleated RBC % (auto) PT 12.9 INR 1.1 APTT Sodium Potassium Chloride Carbon Dioxide Anion Gap BUN Creatinine Estim Creat Clear Calc Estimated GFR Random Glucose Calcium Total Bilirubin AST ALT Alkaline Phosphatase Total Protein Albumin Urine Color Urine Appearance Urine pH Ur Specific [place] Urine Protein Urine Glucose (UA) Urine Ketones Urine Blood Urine Nitrite Ur Leukocyte Esterase COVID-19 (JOLIE) Negative COVID-19 [place] Com See Note Blood Type O Positive Antibody Screen NEGATIVE 03/28/21 05:43 WBC RBC Hgb Hct MCV MCH MCHC RDW Plt Count MPV Immature Gran % (Auto) Neut % (Auto) Lymph % (Auto) [place] % (Auto) Eos % (Auto) Baso % (Auto) Lymph # (Auto) [place] # (Auto) Eos # (Auto) Baso # (Auto) Abs Immat Gran (auto) Absolute Neuts (auto) Absolute Nucleated RBC Nucleated RBC % (auto) PT INR APTT Sodium Potassium Chloride Carbon Dioxide Anion Gap BUN Creatinine Estim Creat Clear Calc Estimated GFR Random Glucose Calcium Total Bilirubin AST ALT Alkaline Phosphatase Total Protein Albumin Urine Color ROBBY Urine Appearance CLEAR Urine pH 5.5 Ur Specific [place] 1.015 Urine Protein NEG Urine Glucose (UA) NEG Urine Ketones NEG Urine Blood NEG Urine Nitrite NEG Ur Leukocyte Esterase NEG COVID-19 (JOLIE) COVID-19 Clin Com Blood Type Antibody Screen Discharge Plan Discharge Patient Disposition: Home, Self-Care Discharge Diagnosis: cholelithiasis and elevated LFTs s/p lap cholecystectomy and IOC Referrals: Micky Palacios [id number] [Primary Care Provider] - 1 Week Discharge Medications: New oxycodone 5 mg capsule 5 mg PO TID PRN (Reason: pain) Qty: 20 RF: 0 docusate sodium [Colace] 100 mg capsule 100 mg PO DAILY Qty: 30 RF: 0 Continued cholecalciferol (vitamin D3) 50 mcg (2,000 unit) tablet 50 mcg PO DAILY 90 Days Qty: 90 RF: 2 metoprolol succinate 50 mg tablet extended release 24 hr 50 mg PO DAILY Qty: 90 RF: 1 amlodipine 10 mg tablet 10 mg PO DAILY Qty: 30 RF: 11 atorvastatin 80 mg tablet 80 mg PO DAILY Qty: 90 RF: 3 cetirizine 10 mg tablet 10 mg PO DAILY RF: 0 Held clopidogrel 75 mg tablet 75 mg PO DAILY Qty: 90 RF: 0 Hold Instructions: Resume on 03/31/21. aspirin 81 mg tablet,delayed release (DR/EC) 81 mg PO DAILY RF: 0 Hold Instructions: Resume on 03/29/21. Discharge Orders: Discharge Order (Routine); Ordered 03/29/21 Ordered By: Kristine Whitehead Diet: regular diet Activity on Discharge: No heavy lifting Stand Alone Forms: Patient Portal Discharge page Activity Restrictions/Additional Instructions: 1. Hold aspirin until tomorrow 2. Hold Plavix for 3 days 3. No lifting > 5 lb for 4 weeks 4. Resume regular diet 5. Follow up in office in 2 weeks Care Plan Goals: s/p cholecystectomy Health Concerns: elevated LFTs Plan of Treatment: cholecystectomy Assessment: discharged after PACU
--- NOTE | 2021-03-28 17:57 | PC.NURSE ---
DR. WARNER UPDATED PATIENT HX CAROLYN NO CPAP USE AT HOME. NOTED SOME APNEA PERIODS NO NARCOTICS GIVEN IN PACU AT THIS TIME ON 02. COMPLAINTS OF RIGHT SHOULDER PAIN. PER M.D. PATIENT ADMITTED BUT IF STABLE PAIN CONTROL AND VS MAY DISCHARGE TO HOME.
[2021-03-28] MEDS: ondansetron HCL 4 MG/2 ML VIAL IVPUSH (18:00)
[2021-03-28] MEDS: oxyCODONE HCl Immed Release 5 MG TABLET PO (18:05)
--- NOTE | 2021-03-28 18:48 | PC.NURSE ---
[PATIENT ADMINISTERED IV ANTIBIOTICS. NOTES BEING LATER THAN ORDERED TIME OF 1600. PATIENT WAS IN THE O.R. AND PLANNED DISCHARGE. PATIENT GIVEN SCHEDULED ANTIBIOTIC
--- NOTE | 2021-03-28 20:06 | PM.PNGS ---
Subjective Subjective Date of Service: 03/29/21 <Kristine Whitehead PA-C - Last Filed: 03/29/21 16:52> 03/29/21 <Roslyn Montenegro MD - Last Filed: 03/29/21 09:20> Interval history: POD #1: Patient is doing well 1 day s/p laparoscopic cholecystectomy and intraoperative. Has been ambulating, using the incentive spirometer, and tolerating regular diet. No nausea or abdominal pain. Has some mild incisional pain. LFTS are improved. <Kristine Whitehead PA-C - Last Filed: 03/29/21 16:52> Patient doing well postoperative day 1. Status post laparoscopic cholecystectomy with intraoperative cholangiogram. Cholangiogram showed no evidence of common bile duct obstruction. Today's labs show normal bilirubins and AST and ALT which continue to decrease. Patient feels well except for mild incisional tenderness. He is tolerating regular diet without difficulty. His vital signs are within normal limits. Patient will be discharged home today to follow up with me in 2 weeks time frame. On physical examination abdomen is obese soft nondistended mild incisional tenderness. Incisions are clean dry intact with Dermabond in place. <Roslyn Montenegro MD - Last Filed: 03/29/21 09:20> Physical Exam Vital Signs: Vital Signs: Last Vital Signs Temp 97 F 03/28/21 19:28 Pulse 72 03/28/21 19:28 Resp 18 03/28/21 19:28 BP 168/85 H 03/28/21 19:28 Pulse Ox 97 03/28/21 19:28 Body Mass Index 46.0 <Kristine Whitehead PA-C - Last Filed: 03/29/21 16:52> Const: General: cooperative, comfortable, no acute distress, alert and awake <Kristine Whitehead PA-C - Last Filed: 03/29/21 16:52> Nutritional Appearance: obese <Kristine Whitehead PA-C - Last Filed: 03/29/21 16:52> GI: Inspection: Yes normal to inspection, Yes incision (normal, slight erythema at site of surgical glue, no tenderness/warmth/drai) and Yes obesity <Kristine Whitehead PA-C - Last Filed: 03/29/21 16:52> Extrem: Right lower extremity: lower leg Details: no tenderness; no edema <Kristine Whitehead PA-C Roge Last Filed: 03/29/21 16:52> Left lower extremity: lower leg Details: no tenderness; no edema <Kristine Whitehead PA-C Roge Last Filed: 03/29/21 16:52> Progress Note: A&P Assessment and plan (1) Cholelithiasis: Status: Acute <Kristine Whitehead PA-C Roge Last Filed: 03/29/21 16:52> (2) Elevated liver function tests: Status: Acute <Kristine Whitehead PA-C Roge Filed: 03/29/21 16:52> (3) S/P cholecystectomy: Status: Acute <CASSIE McclendonRogeJennifer Roge Filed: 03/29/21 16:52> Assessment and Plan: 1 day s/p laparoscopic cholecystectomy and intraoperative cholangiogram (no obstruction). Patient doing well and tolerating regular diet. Discharged home and will follow up in two weeks. All instructions given in writing. <Kristine Whitehead PA-C Roge Last Filed: 03/29/21 16:52> Fall Risk Details Current Medications: Current Medications Generic Name Dose Route Start Last Admin Trade Name Freq PRN Reason Stop Dose Admin Acetaminophen 650 mg 03/28/21 01:29 Acetaminophen Supp 650 Mg Supp.Rect CA Q6H PRN Fever >100.4 Amlodipine Besylate 10 mg 03/29/21 09:00 Amlodipine Besylate 10 Mg Tablet PO DAILY [facility] Protocol Aspirin 81 mg 03/29/21 09:00 Aspirin Enteric Coated 81 Mg Tablet.Dr PO DAILY [facility] Atorvastatin Calcium 80 mg 03/29/21 09:00 Atorvastatin Calcium 80 Mg Tablet PO DAILY [facility] Diphenhydramine HCl 25 mg 03/28/21 01:29 Diphenhydramine Hcl 25 Mg Tablet PO Q4H PRN itching Sodium Chloride 1,000 mls @ 80 mls/hr 03/28/21 01:30 03/28/21 20:05 Ns IVCONT 80 mls/hr .[id number] ABY Administration Piperacillin Sod/Tazobactam 50 mls @ 100 mls/hr 03/28/21 10:00 03/28/21 19:46 Sod 3.375 gm/ Sodium Chloride IV Infused Q6H ABY Infusion Lactated Ringer's 1,000 mls @ 20 mls/hr 03/28/21 14:15 03/28/21 13:24 Lr IVCONT 20 mls/hr .Q24H [facility] Administration Promethazine HCl 6.25 mg/ 50.25 mls @ 200.96 mls/hr 03/28/21 17:32 Sodium Chloride IV ONCE PRN Nausea and Vomiting Loratadine 10 mg 03/29/21 09:00 Loratadine 10 Mg Tablet PO DAILY [facility] Metoprolol Succinate 50 mg 03/29/21 09:00 Metoprolol Succinate Er 50 Mg Tab.Er.24h PO DAILY [facility] Protocol Morphine Sulfate 2 mg 03/28/21 01:29 Morphine Sulfate 2 Mg/Ml Cartridge IVPUSH Q3H PRN Pain, Moderate (Pain Scale 4-6 Morphine Sulfate 4 mg 03/28/21 01:29 Morphine Sulfate 4 Mg/Ml Cartridge IVPUSH Q3H PRN Pain, Severe (Pain Scale 7-10) Ondansetron HCl 4 mg 03/28/21 01:29 Ondansetron Hcl 4 Mg/2 Ml Vial IVPUSH Q4H PRN Nausea Ondansetron HCl 4 mg 03/28/21 17:32 03/28/21 18:00 Ondansetron Hcl 4 Mg/2 Ml Vial IVPUSH 4 mg ONCE PRN Administration Nausea and Vomiting Oxycodone HCl 5 mg 03/28/21 01:29 03/28/21 18:05 Oxycodone Hcl Immed Release 5 Mg Tablet PO 5 mg Q3H PRN Administration Pain, Moderate (Pain Scale 4-6 Oxycodone HCl 10 mg 03/28/21 01:29 Oxycodone Hcl Immed Release 5 Mg Tablet PO Q3H PRN Pain, Severe (Pain Scale 7-10) Sodium Chloride 3 ml 03/28/21 08:00 03/28/21 19:15 0.9 % Sodium Chloride Flush 3 Ml Syringe [facility]FLUSH [facility] <Kristine Whitehead PA-C - Last Filed: 03/29/21 16:52> Time Spent With Patient Time: Total time spent is greater than 50% in coordination of care (as documented) at patient's floor/unit and/or counseling patient: <Kristine Whitehead PA-C - Last Filed: 03/29/21 16:52> Time with patient: less than 15 minutes <Roslyn Montenegro MD - Last Filed: 03/29/21 09:20>
[2021-03-29] MEDS: Piperacillin Sodium/Tazobactam 3.375 GM in 0.9 % Sodium Chloride 50 ML IV (01:56)
[2021-03-29 03:50] VITALS: BP 188/97; PULSE 79; RESP 16; TEMP 36.6; O2SAT 97
[2021-03-29 07:44] LABS: Alanine Aminotransferase 490 U/L (0-40); Albumin Level 4.2 g/dL (3.5-5.0); Alkaline Phosphatase 241 U/L (39-117); Aspartate Amino Transferase 157 U/L (5-37); Bilirubin Direct 0.3 mg/dL (0.0-0.5); Bilirubin Total 0.7 mg/dL (0.0-1.0); Total Protein 6.7 g/dL (6.5-8.0)
[2021-03-29 07:56] VITALS: BP 178/97; PULSE 74; RESP 16; TEMP 36.6; O2SAT 95
--- NOTE | 2021-03-29 08:54 | MHC.CM.PN ---
PATIENT IS FULLY INDEPENDENT WITH HIS ADLS. LIVES WITH SIGNIFICANT OTHER. NO DME OR VNA, AND DOES NOT WANT ANY VNA SERVICES. PLAN IS FOR DISCHARGE TO DAY WITH NO SERVICES. 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
--- NOTE | 2021-03-29 08:58 | HO.POSTANES ---
Post Anesthesia Evaluation Post Anesthesia Evaluation Vital Signs: Vital Signs Temp Pulse Resp BP Pulse Ox 03/29/21 07:56 97.9 F 74 16 178/97 H 95 03/29/21 03:50 97.8 F 79 16 188/97 H 97 03/28/21 23:54 97.7 F 74 16 155/88 H 99 Anesthesia: General Endotracheal-GETA Mental Status: Awake Pain Control: Satisfactory Nausea/Vomiting: None Hydration: Adequate Anesthesia-Related Issues: No Anes. Related Issues
[2021-03-29] MEDS: Aspirin 81 MG TAB.CHEW PO (09:44)
== END 2021-03-29 12:49 | disposition home or self-care (01) | DRG 263 ==
LOC: HO.ED 03-28 01:34 → HO.EDOVER 03-28 02:07 → HO.S3 03-28 18:50
PROVIDERS: Physician Assistant; Admitting Provider Surgery; Emergency Provider Student in an Organized Health Care Education/Training Program; PCP Nurse Practitioner Family; Visit Provider Surgery
PROC: 0FT44ZZ Resection of Gallbladder, Percutaneous Endoscopic Approach (ICD-10-PCS; CPT 47562; principal; 2021-03-28 15:20)
DX: K80.20 Calculus of gallbladder without cholecystitis without obstruction (principal); E78.5 Hyperlipidemia, unspecified; F17.210 Nicotine dependence, cigarettes, uncomplicated; I25.10 Atherosclerotic heart disease of native coronary artery without angina pectoris; Z71.6 Tobacco abuse counseling; Z20.822 Contact with and (suspected) exposure to COVID-19; Z79.82 Long term (current) use of aspirin; Z79.02 Long term (current) use of antithrombotics/antiplatelets; Z79.899 Other long term (current) drug therapy
CPT/HCPCS: 47563; 36415; 71045; 74177; 80053; 80076; 81003; 85025; 85610; 85730; 86850; 86900; 86901; 87635; 88304; 93005; 99024; 99285; C1726; J0131; J1100; J1170; J2250; J2405; J2543; Q9967

== ENCOUNTER → 2021-04-09 14:25 | Outpatient (BNVA) | payer OTHER, SELFPAY | PROVIDERS: PCP Nurse Practitioner Family; Visit Provider Internal Medicine | DX: I25.10 Atherosclerotic heart disease of native coronary artery without angina pectoris (principal); E66.01 Morbid (severe) obesity due to excess calories; I10 Essential (primary) hypertension; G47.33 Obstructive sleep apnea (adult) (pediatric) | CPT/HCPCS: 99212 ==

== ENCOUNTER → 2021-05-01 15:40 | Outpatient (BNVA) | payer OTHER, SELFPAY | PROVIDERS: PCP Nurse Practitioner Family; Visit Provider Surgery | DX: Z90.49 Acquired absence of other specified parts of digestive tract (principal) | CPT/HCPCS: 99212 ==

== ENCOUNTER → 2021-12-19 13:22 | Outpatient (BNVA) | payer OTHER, SELFPAY | PROVIDERS: PCP Nurse Practitioner Family; Referring Provider Nurse Practitioner Family; Visit Provider Internal Medicine | DX: I25.10 Atherosclerotic heart disease of native coronary artery without angina pectoris (principal); R07.2 Precordial pain; E66.01 Morbid (severe) obesity due to excess calories; Z68.42 Body mass index [BMI] 45.0-49.9, adult; G47.33 Obstructive sleep apnea (adult) (pediatric); Z95.5 Presence of coronary angioplasty implant and graft | CPT/HCPCS: 93005; 99212 ==

== ENCOUNTER → 2022-01-08 08:28 | Outpatient (REF) | payer OTHER, SELFPAY ==
--- NOTE | ~2022-01-08 | NM_ITS ---
Lexiscan Myocardial perfusion study Indication: Chest pain, assess for coronary disease and ischemia Technique: The patient was brought in for a Lexiscan perfusion study on 01/08/2022 and was injected 0.4 mg of Lexiscan intravenously. Within a minute of this injection 45 mCi of sestamibi was given intravenously. Images were obtained using the SPECT gamma camera interlaced with the gating device. Images were obtained in supine position. Resting perfusion study was performed on 01/10/2022. Patient was administered 45 mCi of sestamibi intravenously at rest. Images were then obtained in supine position. Total DLP 200mGy-cm. Images were processed with the software and compared side to side in short axis, horizontal long axis and vertical long axis views. Findings: Raw acquisition was reviewed. The stress perfusion study showed mildly diminished tracer uptake along the anterior wall apex as well as the inferior wall. There is significant improvement with CT attenuation correction and hence could all be from some combination of soft tissue attenuation artifact as well as diaphragmatic attenuation artifact. The gated study shows normal LV systolic function with calculated LVEF of 60%. LV cavity is normal in size. The gated study shows normal wall thickening and contraction of segments. Resting study shows diminished tracer uptake along the inferior wall in the basal part. There is improvement with CT attenuation correction and hence could be from diaphragmatic attenuation artifact. Gating at rest reveals normal wall motion with ejection fraction at 55%. The findings are consistent with no definite reversible or fixed perfusion defects. NM/NM cardiolite stress test Impression: 1. Myocardial perfusion imaging study shows no clear evidence of any ischemia or infarction. Likely normal perfusion. 2. Gated LVEF is 60% during stress and 55% during rest. 3. Transient ischemic dilatation not present. EKG component of the test reported separately.
--- NOTE | 2022-01-08 08:34 | CA_ITS ---
Acquisition Time: 2022-01-08 09:31:19 Total Exercise Time: 00:02:00 Test Indications: Chest Pain Medications: Protocol: LEXISCAN Max HR: 093 BPM 53% of Pred: 174 BPM Max BP: 140/072 mmHG Max Work Load: 1.0 METS Pharmacological stress test with Lexiscan injection, while sitting and kicking his legs, without anginal symptoms, without arrythmia, with normotensive response to injection, with nondiagnostic EKG for ischemia. Nuclear images pending. Test reviewed with Dr Elise. Referred By: Keanu Rodgers Overread By: FERNANDA HUGO
== END ==
LOC: HO.CARD 08:28
PROVIDERS: Visit Provider Internal Medicine
DX: I25.10 Atherosclerotic heart disease of native coronary artery without angina pectoris (principal)
CPT/HCPCS: 78452; 93017; A9500; J0280; J2785

== ENCOUNTER → 2022-01-14 13:32 | Outpatient (BNVA) | payer OTHER, SELFPAY | PROVIDERS: PCP Nurse Practitioner Family; Visit Provider Internal Medicine | DX: G47.33 Obstructive sleep apnea (adult) (pediatric) (principal); Z68.42 Body mass index [BMI] 45.0-49.9, adult; E66.01 Morbid (severe) obesity due to excess calories | CPT/HCPCS: 99202 ==

== ENCOUNTER → 2022-02-28 13:09 | Outpatient (REF) | payer OTHER, SELFPAY | LOC: HO.SL 13:09 | PROVIDERS: PCP Nurse Practitioner Family; Visit Provider Internal Medicine | DX: G47.33 Obstructive sleep apnea (adult) (pediatric) (principal); R40.0 Somnolence; E66.01 Morbid (severe) obesity due to excess calories | CPT/HCPCS: 95806 ==

== ENCOUNTER → 2022-03-25 10:52 | Outpatient (BNVA) | payer OTHER, SELFPAY | PROVIDERS: PCP Nurse Practitioner Family; Visit Provider Internal Medicine | DX: G47.33 Obstructive sleep apnea (adult) (pediatric) (principal); E66.01 Morbid (severe) obesity due to excess calories; Z68.41 Body mass index [BMI] 40.0-44.9, adult | CPT/HCPCS: 99212 ==

== ENCOUNTER → 2022-03-28 12:46 | Outpatient (REF) | payer OTHER, SELFPAY ==
--- NOTE | 2022-03-28 12:49 | CA_ITS ---
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 Study Quality: Fair ECG Rhythm: Sinus Conclusions: - The left ventricular systolic function is normal. The calculated ejection fraction is 62% by biplane method. - No obvious valvular pathology seen on this study. Findings Procedure Information Contrast agent, definity, is being given per protocol without apparent complications. Left Ventricle Normal left ventricular cavity size. There is normal left ventricular wall thickness. The left ventricular systolic function is normal. The calculated ejection fraction is 62% by biplane method. There is no evidence of regional wall motion abnormalities. Diastolic function is normal for age. There is mild septal asymmetric hypertrophy. Right Ventricle Normal right ventricular cavity size and systolic function. Atria Both atria are normal in size. Aortic Valve There is a normal trileaflet aortic valve. There is no aortic valve stenosis. There is no aortic valve regurgitation. Mitral Valve The mitral valve appears normal. There is trace mitral valve regurgitation. There is no mitral valve stenosis. Pulmonic Valve The pulmonic valve is likely normal. Tricuspid Valve Normal tricuspid valve structure. There is no tricuspid valve regurgitation. The pulmonary artery systolic pressure is normal. Great Vessels The aortic annulus, sinuses of valsalva, and asc aorta are normal in size. Venous The inferior vena cava is mildly dilated and collapses less than 50% with inspiration. Pericardium/Pleural There is no evidence of pericardial effusion. Prior Study Comparison No significant change compared to prior study dated: 07/17/2018. Recommendations, Care & Conclusions No obvious valvular pathology seen on this study. Measurements 2D Linear Measurements IVSd: 1.45 0.6-0.9/0.6-1.0 cm LVIDd: 5.81 3.9-5.3/4.2-5.9 cm LVIDd Index: 2.25 2.4-3.2/2.2-3.1 cm/m2 LVIDs: 4.01 2.0-3.6 cm LVPWd: 1.06 0.7-1.1 cm LA Diam: 4.60 2.7-3.8/3.0-4.0 cm LAIDs Index: 1.78 1.5-2.3 cm/m2 LV Mass: 395.00 67-162/88-224 g LV Mass Index: 153.10 43-95/49-115 g/m2 LVOT Diam: 2.40 3.0+(-)1.3 cm 2D Systolic Function EF 4C: 63.70 >55% EF 2C: 58.40 >55% EF BiP: 62.00 >55% Mitral Valve MV Pk E: 0.91 MV PK A: 0.57 MV Decel Time: 183.00 E/A: 1.60 E'Lateral: 8.70 E'Medial: 7.83 E/E' Med: 11.70 E/E' Lat: 10.50 PHT: 54.00 MVA PHT: 4.07 Decel [place]: 4.98 Aortic Valve AoV Pk Chandan: 1.41 AoV Mn Chandan: 0.99 AoV VTI: 0.30 AoV Pk Grad: 8.00 Aov Mn Grad: 4.00 TOMAS Cont.VTI: 3.64 LVOT LVOT Pk Chandan: 1.19 LVOT Mn Chandan: 0.86 LVOT VTI: 0.24 LVOT Pk Grad: 6.00 LVOT Mn Grad: 3.00 LVOT Diam: 2.40 LVOT Area: 4.52 Diastolic Function MV Pk E: 0.91 MV Pk A: 0.57 E/A: 1.60 E'Medial: 7.83 E/E' Med: 11.70 E' Laterial: 8.70 E/E' Lat: 10.50 Right Ventricle TAPSE (mm): 26.90 TVS' Chandan: 11.70 Tricuspid Valve RA Press: 15.00 Great Vessels Aorta Sinus of Valsalva: 3.20 2.0-3.[address] [place]: 3.40 1.7-3.4 cm Ao Asc: 3.10 2.1-3.4 cm Pulmonary Veins Pulm Vein S/D 1.40 Pulmonary Valve PV Pk Chandan: 0.81 Peak PV Grad: 3.00 Updated in Other Vendor System with Status of Final Keanu Rodgers MD electronically signed on 03/29/2022 4:34:42 PM with status of Final
== END ==
LOC: HO.CARD 12:46
PROVIDERS: PCP Nurse Practitioner Family; Visit Provider Internal Medicine
DX: I25.10 Atherosclerotic heart disease of native coronary artery without angina pectoris (principal)
CPT/HCPCS: 93306; Q9957

== ENCOUNTER 2022-05-14 13:35 | Outpatient (REF) | payer OTHER, SELFPAY ==
[2022-05-14 16:30] LABS: MANUAL DIFF FLAG NO
[2022-05-14 16:33] LABS: Basophils Percent Auto 0.4 % (0-2); Eosinophils Absolute Auto 0.2 X10*3/uL (0.0-0.4); Eosinophils Percent Auto 1.6 % (0-4); Hematocrit 47.5 % (42.0-52.0); Hemoglobin 15.8 g/dl (14.0-18.0); Imm Gran Abs Auto 0.05 X10*3/uL (0.00-0.03); Imm Gran Pct Auto 0.4 % (0.0-0.4); Lymphocytes Absolute Auto 2.3 X10*3/uL (1.2-4.9); Lymphocytes Percent Auto 20.7 % (20-40); Mean Corpuscular HGB Conc 33.3 g/dl (31.0-36.0); Mean Corpuscular Hemoglobin 28.4 pg (27.0-33.0); Mean Corpuscular Volume 85.3 fL (80.0-98.0); Mean Platelet Volume 11.5 fL (9.4-12.4); Monocytes Absolute Auto 0.8 X10*3/uL (0.1-1.2); Monocytes Percent Auto 7.2 % (2-11); Neutrophils Absolute Auto 7.8 x10*3/uL (2.0-8.3); Neutrophils Percent Auto 69.7 % (45-73); Platelet Count 222 X10*3/uL (160-400); Red Blood Count 5.57 X10*6/uL (4.60-5.80); Red Cell Distribution Width 13.2 % (11.0-16.0); White Blood Count 11.1 X10*3/uL (4.8-10.8)
[2022-05-14 16:41] LABS: Appearance Urine CLEAR; Color Urine YELLOW; Glucose Urine UA NEG (NEG); Leukocyte Esterase Urine NEG (NEG); Nitrite Urine NEG (NEG); Specific Gravity - Urine 1.025 (1.005-1.025); Urine Blood NEG (NEG); Urine Ketones NEG (NEG); Urine Protein TRACE MG/DL (NEG-TRACE)
[2022-05-14 16:48] LABS: Alanine Aminotransferase 26 U/L (0-40); Albumin Level 4.4 g/dL (3.5-5.0); Alkaline Phosphatase 112 U/L (39-117); Anion Gap 13 (12-20); Aspartate Amino Transferase 17 U/L (5-37); Bilirubin Total 0.5 mg/dL (0.0-1.0); Blood Urea Nitrogen 17 mg/dL (9-16); Calcium 9.1 mg/dL (8.4-10.2); Carbon Dioxide 26 mmol/L (22-29); Chloride 106 mmol/L (96-108); Cholesterol 137 mg/dL; Estimated Glomerular Filt Rate > 60; Glucose Fasting 93 mg/dL (60-99); HDL Cholesterol 35 mg/dL; LDL Cholesterol Calculated 84 mg/dl; Potassium 4.1 mmol/L (3.3-5.1); Sodium 141 mmol/L (135-145); Total Protein 6.8 g/dL (6.5-8.0); Triglycerides 90 mg/dL
[2022-05-14 16:54] LABS: Estimated Average Glucose 91 mg/dL; Hemoglobin A1c % 4.8 %
[2022-05-14 17:10] LABS: TSH reflex Free T4 1.32 uIU/mL (0.32-4.0)
== END 2022-05-14 13:36 | disposition home or self-care (01) ==
LOC: HO.HMGCLDS 13:35
PROVIDERS: Visit Provider Nurse Practitioner Family
DX: E78.5 Hyperlipidemia, unspecified (principal); E66.9 Obesity, unspecified
CPT/HCPCS: 36415; 80053; 80061; 81003; 83036; 84443; 85025

== ENCOUNTER → 2022-07-12 11:19 | Outpatient (BNVA) | payer OTHER, SELFPAY | PROVIDERS: PCP Nurse Practitioner Family; Visit Provider Nurse Practitioner Family | DX: Z01.818 Encounter for other preprocedural examination (principal) | CPT/HCPCS: 99202; 99212 ==

== ENCOUNTER 2022-10-29 11:39 | Outpatient (REF) | payer OTHER, SELFPAY ==
[2022-10-29 12:30] LABS: Influenza A PCR NEGATIVE (Negative); Influenza B PCR NEGATIVE (Negative); Resp Syncy Virus RNA Qual PCR NEGATIVE (Negative); SARS COV2 PCR INHOUSE NEGATIVE (Negative)
== END 2022-10-29 11:40 | disposition home or self-care (01) ==
LOC: HO.LNP 11:39
PROVIDERS: Visit Provider Nurse Practitioner Family
DX: Z20.822 Contact with and (suspected) exposure to COVID-19 (principal); R09.89 Other specified symptoms and signs involving the circulatory and respiratory systems; H69.80 Other specified disorders of Eustachian tube, unspecified ear
CPT/HCPCS: 0241U

== ENCOUNTER 2022-11-21 07:21 | Day surgery (SDC) | payer OTHER, SELFPAY ==
[2022-11-18 11:22] VITALS: BMI 45.7
--- NOTE | 2022-11-20 11:54 | P.CONAN_ITS ---
Documented by User: Lea Muse NP 11/20/22 11:58 HPI - Anesthesia Eval Consult details Narrative: 47yo M for Colonoscopy Cardiac cleared - not to interrupt aspirin PMFSH Active Problems Active Problems: All Active Problems (Updated 11/18/22 @ 11:20 by Sarah Penaloza, RN) Chronic sinusitis (Acute) Upper abdominal pain (Acute) Recurrent acute sinusitis (Acute) Seasonal allergies (Acute) Precordial chest pain (Acute) Accessory skin tags (Acute) Physical exam (Acute) Diarrhea (Acute) Screening for colon cancer (Acute) Obesity (Acute) HTN (hypertension) (Acute) Dysfunction of eustachian tube (Acute) Otitis media (Acute) Somnolence (Acute) S/P cholecystectomy (Acute) Atherosclerotic cardiovascular disease (Acute) Dyslipidemia (Acute) Morbid obesity (Acute) CAROLYN (obstructive sleep apnea) (Chronic) Past Medical History Medical History Atherosclerotic cardiovascular disease Cholelithiasis Dyslipidemia Essential hypertension Morbid obesity CAROLYN (obstructive sleep apnea) Panic attack Somnolence Family History Family History Father Hypertension Coronary artery disease Kidney failure Mother No problems noted. Maternal Grandfather Coronary artery disease History of heart attack Brother Crohn's disease Sister No problems noted. Sister No problems noted. Sister No problems noted. Surgical History Surgical History History of arthroscopy of left knee History of cardiac catheterization (~08/2018) History of heart artery stent History of tonsillectomy S/P cholecystectomy Social History Social History Household Members: Spouse Housing: House Alcohol intake: current Alcohol intake frequency: holidays/special occasions only Patient Tobacco Use Status: Current everyday Tobacco user Tobacco use type: Cigarette Cigarette Packs Per Day: 1 Cigarettes Per Day: 20.0 Years Smoked: 30 e-Cigarette/Vaping Use: Never Used Second Hand Smoke Exposure: No service: No Current occupational status: employed Cognitive needs: No Hearing needs: No Vision needs: No Meds Allergies Allergy/AdvReac Type Severity Reaction Status Date / Time No Known Allergies Allergy Verified 11/21/22 07:28 Home Medications Medication Instructions Recorded Confirmed Last Taken Type levocetirizine 5 mg tablet (Xyzal) 5 mg PO DAILY 01/09/22 11/21/22 Unknown History Exam Exam Date and Time: November 20, 2022 1154 Height,Weight and Vital Signs: Height 5 ft 11 in Weight 148.778 kg Pertinent Lab Results Pertinent Lab Results: Laboratory Tests 05/14/22 05/14/22 13:45 13:45 WBC 11.1 H Hgb 15.8 Hct 47.5 Plt Count 222 Sodium 141 Potassium 4.1 Chloride 106 Carbon Dioxide 26 BUN 17 H Creatinine 0.98 Narrative Narrative: ECHO 03/2022 Conclusions: - The left ventricular systolic function is normal.? The ? calculated ejection fraction is 62% by biplane method. ? - No obvious valvular pathology seen on this study.? NM cardiolite stress test 01/2022 Impression: ? 1.? Myocardial perfusion imaging study shows no clear evidence of any ischemia or infarction. Likely normal perfusion. 2.? Gated LVEF is 60% during stress and 55% during rest. 3. Transient ischemic dilatation not present. ? EKG component of the test reported separately. Assessment and Plan Assessment Anesthesia Assessment: Chart Reviewed Documented by User: Henrry Vizcaino MD 11/21/22 14:29 HPI - Anesthesia Eval Consult details Narrative: 47yo M for Colonoscopy Cardiac cleared - not to interrupt aspirin Patient given Aspirin pre-op REPLACED BY [facility] Past Medical History Medical History Atherosclerotic cardiovascular disease Cholelithiasis Dyslipidemia Essential hypertension Morbid obesity CAROLYN (obstructive sleep apnea) Panic attack Somnolence Functional capacity: independent ambulation Family History Family History Father Hypertension Coronary artery disease Kidney failure Mother No problems noted. Maternal Grandfather Coronary artery disease History of heart attack Brother Crohn's disease Sister No problems noted. Sister No problems noted. Sister No problems noted. Family history of problems with anesthesia: No Surgical History Surgical History History of arthroscopy of left knee History of cardiac catheterization (~08/2018) History of heart artery stent History of tonsillectomy S/P cholecystectomy History of Problems with Anesthesia: Yes (panic attack at induction ) Social History Social History Household Members: Spouse Housing: House Alcohol intake: current Alcohol intake frequency: holidays/special occasions only Patient Tobacco Use Status: Current everyday Tobacco user Tobacco use type: Cigarette Cigarette Packs Per Day: 1 Cigarettes Per Day: 20.0 Years Smoked: 30 e-Cigarette/Vaping Use: Never Used Second Hand Smoke Exposure: No service: No Current occupational status: employed Cognitive needs: No Hearing needs: No Vision needs: No Meds Allergies Allergy/AdvReac Type Severity Reaction Status Date / Time No Known Allergies Allergy Verified 11/21/22 07:28 Home Medications Medication Instructions Recorded Confirmed Last Taken Type levocetirizine 5 mg tablet (Xyzal) 5 mg PO DAILY 01/09/22 11/21/22 Unknown History Exam Airway Mallampati Class: IV Neck ROM: Full Loose/Missing/Broken Teeth: Yes (poor dentition overall ) Heart: S1,S2 Lungs: b/l breath sounds Assessment and Plan Assessment Anesthesia Assessment: Anesthesia Plan Discussed Final Anesthetic Review Family History of Problems with Anesthesia: No History of Problems with Anesthesia: Yes (panic attack at induction ) NPO: Yes ASA Class: III Final Preanesthetic Review: Meds/Allgs Chart Reviewed, Consent Obtained/Reviewed and Anes Risks/Benef Reviewed Patient Risk: High Procedure Risk: Intermediate Anesthetic Plan Anesthetic Plan: MAC: Disposition: Standard PACU Anesthetic Plan: MAC: Disposition: Standard PACU
[2022-11-21] MEDS: Lactated Ringers 1,000 ML 100 ML IVCONT (07:49)
[2022-11-21 07:56] VITALS: BP 132/67; PULSE 82; RESP 18; TEMP 36.6; O2SAT 98
[2022-11-21] MEDS: Aspirin 81 MG TAB.CHEW PO (08:28)
--- NOTE | 2022-11-21 08:29 | MHC.SHP ---
Pre-Procedural Eval Section A Date of Service: 11/21/22 Section B Chief Complaint: screening Relevant Family History (Specify if Yes): No Relevant Social History: Tobacco Use Present Medications: see Short Stay Collaborative assessment Medical History: Significant History (Atherosclerotic cardiovascular disease Cholelithiasis Dyslipidemia Essential hypertension Morbid obesity CAROLYN (obstructive sleep apnea) Panic attack Somnolence) History of Previous Operations: Relevant previous surgery/procedure and date(s) (History of arthroscopy of left knee History of cardiac catheterization (~08/2018) History of heart artery stent History of tonsillectomy S/P cholecystectomy) Allergies: Allergies Allergy/AdvReac Type Severity Reaction Status Date / Time No Known Allergies Allergy Verified 11/21/22 07:28 Review of Systems Sugical H&P ROS: Negative: Constitution, Cardiovascular, Respiratory, Neurological, Psychiatric, Hem-Onc, Allergic/Immunologic, Gastrointestinal, Genitourinary, Musculoskeletal, Integumentary, Endocrine and Eyes/Ears/Nose/Throat Exam Surgical H&P Exam: Normal: HEENT, Normal: Heart, Normal: Lungs, Normal: Extremities, Normal: Abdomen, Normal: Skin and Normal: Neurological Plan Diagnosis/Plan: Unchanged I have reviewed the history and physical and performed a pertinent physical examination on my patient. No changes have occurred unless specified. Time Spent With Patient Time: Total time managing care of this patient today ____ minutes.
--- NOTE | 2022-11-21 08:32 | W.PM.OPN ---
Operative Note Operative Note Date of Service: 11/21/22 Narrative: Operative Information Procedure Description: Colonoscopy Indication: screening Anesthesia: MAC COLONOSCOPY Instrument: Olympus variable stiffness ADULT scope 190L Colonoscopy Monitoring: Vital signs and clinical assessment, continuous EKG monitoring, Pulse oximetry, Carbon Dioxide monitoring and blood pressure monitoring were done throughout the procedure. Colon withdrawal time was 11 minutes. Procedure: The patient was placed in the left lateral decubitis position and pre-procedure medications were administered. After a digital rectal examination of the ano-rectum, the video colonoscope was inserted into the rectum and advanced through the colon to the cecum/TI. The colonoscope was slowly withdrawn in a retrograde panoramic fashion and the colon mucosa was carefully examined including a retroflexed view of the rectum. Findings and interventions are described below. Procedure Difficulty: easy Findings: Terminal Ileum-normal Cecum:normal Ascending Colon: normal Transverse Colon -normal Descending Colon:normal Sigmoid Colon: mild diverticulosis Rectum: Retroflexion with small internal hemorrhoids, grade I Anorectum - normal Colon preparation: [place] Bowel Preparation Scale Right colon; 2 Transverse colon: 3 Left colon; 3 (0 = Unprepared colon segment with mucosa not seen due to solid stool that cannot be cleared. 1 = Portion of mucosa of the colon segment seen, but other areas of the colon segment not well seen due to staining, residual stool and/or opaque liquid. 2 = Minor amount of residual staining, small fragments of stool and/or opaque liquid, but mucosa of colon segment seen well. 3 = Entire mucosa of colon segment seen well with no residual staining, small fragments of stool or opaque liquid) Impression and Post Procedure Diagnosis: internal hemorrhoids diverticular disease Plan: High fiber diet leaflet Avoid straining at stool, epsom salts and sitz bath, anusol supps or cream Repeat Colonoscopy in 10 years or earlier if clinically indicated Above findings were reviewed with the patient and relevant handouts were provided if indicated.
--- NOTE | 2022-11-21 08:47 | PC.NURSE ---
Dr. Vizcaino had conversation with patient regarding anxiety he experienced with previous anesthesia. Dr. Vizcaino and Dr. Altamirano decided for patient to receive ASA 81 mg PO prior to procedure due to cardiac history. Respiratory treatment Dr. Vizcaino prior to procedure. patient is cigarette smoker. LCTA>
[2022-11-21 09:17] VITALS: BP 114/47; PULSE 83; RESP 17; TEMP 36.4; O2SAT 98
[2022-11-21 09:32] VITALS: BP 122/97; PULSE 75; RESP 18; TEMP 36.4; O2SAT 97
== END 2022-11-21 09:58 | disposition home or self-care (01) ==
PROVIDERS: PCP Nurse Practitioner Family; Visit Provider Internal Medicine Gastroenterology
PROC: 0DJD8ZZ Inspection of Lower Intestinal Tract, Via Natural or Artificial Opening Endoscopic (ICD-10-PCS; CPT 45378; principal; 2022-11-21 08:30)
DX: Z12.11 Encounter for screening for malignant neoplasm of colon (principal); K57.30 Diverticulosis of large intestine without perforation or abscess without bleeding; K64.0 First degree hemorrhoids; I25.10 Atherosclerotic heart disease of native coronary artery without angina pectoris; Z98.61 Coronary angioplasty status; I10 Essential (primary) hypertension; E78.5 Hyperlipidemia, unspecified; E66.01 Morbid (severe) obesity due to excess calories; Z68.42 Body mass index [BMI] 45.0-49.9, adult; G47.33 Obstructive sleep apnea (adult) (pediatric); Z99.89 Dependence on other enabling machines and devices; R40.0 Somnolence; Z79.82 Long term (current) use of aspirin; Z90.49 Acquired absence of other specified parts of digestive tract; F17.210 Nicotine dependence, cigarettes, uncomplicated
CPT/HCPCS: 45378; J2250

== ENCOUNTER → 2022-12-06 09:29 | Outpatient (BNVA) | payer OTHER, SELFPAY | PROVIDERS: PCP Nurse Practitioner Family; Visit Provider Nurse Practitioner Family | DX: K57.90 Diverticulosis of intestine, part unspecified, without perforation or abscess without bleeding (principal); K21.9 Gastro-esophageal reflux disease without esophagitis; E66.01 Morbid (severe) obesity due to excess calories; I10 Essential (primary) hypertension; G47.33 Obstructive sleep apnea (adult) (pediatric); Z68.42 Body mass index [BMI] 45.0-49.9, adult; Z98.890 Other specified postprocedural states | CPT/HCPCS: 99212 ==

== ENCOUNTER → 2023-01-14 13:50 | Outpatient (BNVA) | payer OTHER, SELFPAY | PROVIDERS: PCP Nurse Practitioner Family; Visit Provider Internal Medicine | DX: G47.33 Obstructive sleep apnea (adult) (pediatric) (principal); E66.01 Morbid (severe) obesity due to excess calories | CPT/HCPCS: 99212 ==

== ENCOUNTER → 2023-03-06 14:50 | Outpatient (BNVA) | payer OTHER, SELFPAY | PROVIDERS: PCP Nurse Practitioner Family; Visit Provider Internal Medicine | DX: I25.10 Atherosclerotic heart disease of native coronary artery without angina pectoris (principal); I10 Essential (primary) hypertension; G47.33 Obstructive sleep apnea (adult) (pediatric); E66.01 Morbid (severe) obesity due to excess calories; Z68.42 Body mass index [BMI] 45.0-49.9, adult | CPT/HCPCS: 93005; 99212 ==

== ENCOUNTER 2023-07-10 15:37 | Outpatient (AMB) | payer OTHER, SELFPAY ==
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
[2023-07-10 15:42] VITALS: BP 166/98; PULSE 71; O2SAT 98; BMI 45.9
[2023-07-10 16:26] VITALS: BP 150/92
== END 2023-07-10 16:41 | disposition home or self-care (01) ==
PROVIDERS: PCP Nurse Practitioner Family; Visit Provider Nurse Practitioner Family
DX: G44.82 Headache associated with sexual activity (principal); F17.200 Nicotine dependence, unspecified, uncomplicated; I10 Essential (primary) hypertension
CPT/HCPCS: 99213

== ENCOUNTER 2023-08-15 14:12 | Outpatient (REF) | payer OTHER, SELFPAY ==
--- NOTE | ~2023-08-15 | CT_ITS ---
EXAMINATION: CT HEAD WITHOUT CONTRAST CLINICAL INFORMATION: Headaches associated with sexual activity. COMPARISON: None. TECHNIQUE: Contiguous axial imaging was performed from the skullbase to vertex without intravenous administration of contrast. This CT examination was performed using dose optimization techniques as appropriate, variously including the following: *Automated exposure control *Adjustment of mA and/or kV according to patient size (this includes techniques or standardized protocols for targeted exams where dose is matched to indication/reason for exam; i.e. extremities or head) *Use of iterative reconstruction technique DLP: 921 mGy-cm. FINDINGS: There is no evidence of acute intracranial hemorrhage or territorial infarction. No abnormal mass effect or midline shift is seen. Dumas to white matter differentiation is well preserved. No extra-axial fluid collections are identified. The ventricles are normal in size. There is no abnormal attenuation within the brain parenchyma. The osseous structures and soft tissues are normal. The mastoid air cells are well aerated. There is a small retention cysts in the right sphenoid sinus and mild right maxillary sinus mucosal thickening. CT/CT head/brain wo IV con IMPRESSION: No acute intracranial pathology.
== END 2023-08-15 14:13 | disposition home or self-care (01) ==
LOC: HO.CT 14:12
PROVIDERS: PCP Nurse Practitioner Family; Visit Provider Nurse Practitioner Family
DX: G44.82 Headache associated with sexual activity (principal)
CPT/HCPCS: 70450

== ENCOUNTER 2023-10-14 07:52 | Outpatient (AMB) | payer OTHER, SELFPAY ==
[2023-10-14 08:04] VITALS: BP 142/82; PULSE 87; TEMP 36.7; O2SAT 97; BMI 44.8
--- NOTE | 2023-10-14 08:04 | MHC.OFFWIV ---
Intake Vital Signs 10/14/23 08:04 Height 5 ft 11 in Weight 321 lb BMI 44.8 BP 142/82 H Blood Pressure Location Rt brachial Position Sitting Pulse 87 Pulse Source Pulse Oximeter Temp 98.0 F Temp Source Temporal Artery Scan Pulse Oximetry (%) 97 Oxygen Delivery Method Room Air Intake Visit Reasons: EST/Sore throat(lobby) Intake Note: pt is here for c/o sore throat Patient Tobacco Use Status: Current everyday Tobacco user Allergies No Known Allergies Allergy (Verified 10/14/23 08:22) Medication List - Last Reconciled 10/14/23 by Reinier Webb MD amlodipine 10 mg PO DAILY aspirin 81 mg PO DAILY atorvastatin 80 mg PO DAILY cholecalciferol (vitamin D3) 50 mcg PO DAILY 90 days fluticasone propionate 50 mcg/actuation 1 spray intranasal Q12H PRN levocetirizine (Xyzal) 5 mg PO DAILY lorazepam 0.5 mg PO DAILY PRN metoprolol succinate ER 200 mg (2 x 100 mg) PO DAILY montelukast 10 mg PO BEDTIME 90 days nicotine (polacrilex) 4 mg buccal Q2H nitroglycerin 0.4 mg sublingual Q5M PRN polyethylene glycol 3350 (Miralax) 17 grams PO DAILY spironolactone 25 mg PO DAILY Do you need a note to return to daycare/school/sports/work: Yes HPI EST/Sore throat(lobby) HPI Details Patient presents for a sick visit. Reporting symptoms of sinus congestion, sore throat and difficulty swallowing. Low-grade fever. No family member is sick. No recent travel. Patient reports symptoms of malaise and fatigue. [facility] Medical History CAD (coronary artery disease) Smoker Meniere disease Diverticulosis Panic attack Somnolence Cholelithiasis Dyslipidemia Morbid obesity CAROLYN (obstructive sleep apnea) Essential hypertension Atherosclerotic cardiovascular disease Surgical History Hx of colonoscopy S/P cholecystectomy History of arthroscopy of left knee History of heart artery stent History of tonsillectomy History of cardiac catheterization (~08/2018) Family History Father Hypertension Coronary artery disease Kidney failure Mother No problems noted. Maternal Grandfather Coronary artery disease History of heart attack Brother Crohn's disease Sister No problems noted. Sister No problems noted. Sister No problems noted. Social History Household Members: Spouse Housing: House Alcohol intake: current Alcohol intake frequency: holidays/special occasions only Patient Tobacco Use Status: Current everyday Tobacco user Tobacco use type: Cigarette Cigarette Packs Per Day: 1 Cigarettes Per Day: 20.0 Years Smoked: 30 e-Cigarette/Vaping Use: Never Used Second Hand Smoke Exposure: No service: No Current occupational status: employed Cognitive needs: No Hearing needs: No Vision needs: No Physical Exam Vital Signs: Last Vital Signs Temp 98.0 F 10/14/23 08:04 Pulse 87 10/14/23 08:04 BP 142/82 H 10/14/23 08:04 Pulse Ox 97 10/14/23 08:04 Oxygen Delivery Method Room Air 10/14/23 08:04 BMI result Body Mass Index 44.8 Const General: cooperative and healthy appearing Nutritional Appearance: well nourished Orientation/consciousness: patient oriented x3 Limitations: no limitations HEENT Head: Yes normal to inspection Eyes General: appearance normal, both eyes and all related structures Neck Neck: Yes normal visual inspection Chest Chest palpation & inspection: normal palpation of entire chest wall Resp Effort & Inspection: normal respiratory effort Neuro General: patient oriented x3 Results AMB Rapid Strep AMB Rapid Strep Negative Last Edit by Bert Stanton CMA on 10/14/23 08:30 Assessment & Plan Assessment & Plan (1) Upper respiratory tract infection: Code(s): J06.9 - Acute upper respiratory infection, unspecified Plan Antibiotics ordered. Increase fluid intake. Tylenol for aches and pains. If symptoms worsen, follow-up here for a recheck. Orders: Orders AMB Rapid Strep Screen Today Z13.9 - Encounter for screening, unspecified Coding Level of Care Code Est Pt Level 3 (71129) Diagnoses Upper respiratory tract infection J06.9
== END 2023-10-14 08:41 | disposition home or self-care (01) ==
PROVIDERS: PCP Nurse Practitioner Family; Visit Provider Internal Medicine
DX: J06.9 Acute upper respiratory infection, unspecified (principal); J02.9 Acute pharyngitis, unspecified
CPT/HCPCS: 87880; 99213

== ENCOUNTER 2024-02-06 07:38 | Outpatient (REF) | payer OTHER, SELFPAY ==
[2024-02-06 11:23] LABS: Appearance Urine Clear; Color Urine Dark Yellow; Glucose Urine UA Negative (Negative); Leukocyte Esterase Urine Negative (Negative); Nitrite Urine Negative (Negative); Specific Gravity - Urine >= 1.030 (1.005-1.025); UMIC TRIGGER UACC YES; Urine Blood Negative (Negative); Urine Ketones Trace mg/dL (Negative); Urine Protein 30 (1+) mg/dL (Neg-Trace)
[2024-02-06 11:24] LABS: MANUAL DIFF FLAG NO
[2024-02-06 11:28] LABS: Basophils Absolute Auto 0.1 X10*3/uL (0.0-0.2); Basophils Percent Auto 0.7 % (0-2); Eosinophils Absolute Auto 0.2 X10*3/uL (0.0-0.4); Eosinophils Percent Auto 1.8 % (0-4); Hematocrit 47.5 % (42.0-52.0); Imm Gran Abs Auto 0.06 X10*3/uL (0.00-0.03); Imm Gran Pct Auto 0.6 % (0.0-0.4); Lymphocytes Absolute Auto 2.2 X10*3/uL (1.2-4.9); Lymphocytes Percent Auto 20.8 % (20-40); Mean Corpuscular HGB Conc 33.7 g/dl (31.0-36.0); Mean Corpuscular Hemoglobin 28.5 pg (27.0-33.0); Mean Corpuscular Volume 84.7 fL (80.0-98.0); Mean Platelet Volume 12.3 fL (9.4-12.4); Monocytes Absolute Auto 0.8 X10*3/uL (0.1-1.2); Neutrophils Absolute Auto 7.1 x10*3/uL (2.0-8.3); Neutrophils Percent Auto 68.1 % (45-73); Platelet Count 216 X10*3/uL (160-400); Red Blood Count 5.61 X10*6/uL (4.60-5.80); Red Cell Distribution Width 13.2 % (11.0-16.0); White Blood Count 10.4 X10*3/uL (4.8-10.8)
[2024-02-06 11:29] LABS: Bacteria Urine None Seen (None Seen); Hyaline Casts Urine 0-2 /LPF (0-2); RBC Urine 0-2 /HPF (0-2); Squamous Epithelial Cell Urine 0-2 /HPF (0-2); WBC Urine 0-5 /HPF (0-5)
[2024-02-06 11:51] LABS: Alanine Aminotransferase 24 U/L (0-40); Albumin Level 4.3 g/dL (3.5-5.0); Alkaline Phosphatase 107 U/L (39-117); Anion Gap 10 (12-20); Aspartate Amino Transferase 17 U/L (5-37); Bilirubin Total 0.6 mg/dL (0.0-1.0); Blood Urea Nitrogen 17 mg/dL (9-16); Calcium 8.9 mg/dL (8.4-10.2); Carbon Dioxide 25 mmol/L (22-29); Chloride 110 mmol/L (96-108); Cholesterol 121 mg/dL (<200); Estimated Glomerular Filt Rate > 60; Glucose Fasting 111 mg/dL (60-99); HDL Cholesterol 34 mg/dL (>40); LDL Cholesterol Calculated 74 mg/dL (<100); Potassium 3.6 mmol/L (3.3-5.1); Sodium 141 mmol/L (135-145); Total Protein 6.9 g/dL (6.5-8.0); Triglycerides 68 mg/dL (<150)
== END 2024-02-06 07:39 | disposition home or self-care (01) ==
LOC: HO.HMGCLDS 07:38
PROVIDERS: PCP Nurse Practitioner Family; Visit Provider Nurse Practitioner Family
DX: F17.200 Nicotine dependence, unspecified, uncomplicated (principal); E78.5 Hyperlipidemia, unspecified; E66.01 Morbid (severe) obesity due to excess calories
CPT/HCPCS: 36415; 80053; 80061; 81001; 84443; 85025

== ENCOUNTER 2024-02-11 08:03 | Outpatient (AMB) | payer OTHER, SELFPAY ==
--- NOTE | 2024-02-11 08:15 | AM.OFFWIN_ITS ---
Intake Vital Signs 02/11/24 08:16 Height 5 ft 11 in BP 150/88 H Blood Pressure Location Lt brachial Position Sitting Pulse 74 Pulse Source Pulse Oximeter Temp 98.1 F Temp Source Oral Pulse Oximetry (%) 98 Oxygen Delivery Method Room Air Intake Visit Reasons: EP sinus infection Intake Note: Pt is here for post nasal drip, cough, sinus congestion for about 4-5 days with a whitish drainage Patient Tobacco Use Status: Current everyday Tobacco user Allergies No Known Allergies Allergy (Verified 02/11/24 08:19) Medication List - Last Reconciled 02/11/24 by CASSIE Ya amlodipine 10 mg PO DAILY amoxicillin 875 mg PO BID 7 days aspirin 81 mg PO DAILY atorvastatin 80 mg PO DAILY cholecalciferol (vitamin D3) 50 mcg PO DAILY 90 days fluticasone propionate 50 mcg/actuation 1 spray intranasal Q12H PRN levocetirizine (Xyzal) 5 mg PO DAILY lorazepam 0.5 mg PO DAILY PRN metoprolol succinate ER 200 mg (2 x 100 mg) PO DAILY 90 days montelukast 10 mg PO BEDTIME 90 days nitroglycerin 0.4 mg sublingual Q5M PRN spironolactone 25 mg PO DAILY HPI HPI Comments History of Present Illness Details 48-year-old male presents today complain ing of sinus pain and pressure for the last week. Patient states he has past medical history of sinusitis. Denies any fever chills cough or shortness of breath PFSH Medical History CAD (coronary artery disease) Smoker Meniere disease Diverticulosis Panic attack Somnolence Cholelithiasis Dyslipidemia Morbid obesity CAROLYN (obstructive sleep apnea) Essential hypertension Atherosclerotic cardiovascular disease Surgical History Hx of colonoscopy S/P cholecystectomy History of arthroscopy of left knee History of heart artery stent History of tonsillectomy History of cardiac catheterization (~08/2018) Family History Father Hypertension Coronary artery disease Kidney failure Mother No problems noted. Maternal Grandfather Coronary artery disease History of heart attack Brother Crohn's disease Sister No problems noted. Sister No problems noted. Sister No problems noted. Social History Household Members: Spouse Housing: House Alcohol intake: current Alcohol intake frequency: holidays/special occasions only Patient Tobacco Use Status: Current everyday Tobacco user Tobacco use type: Cigarette Cigarette Packs Per Day: 1 Cigarettes Per Day: 20.0 Years Smoked: 30 e-Cigarette/Vaping Use: Never Used Second Hand Smoke Exposure: No service: No Current occupational status: employed Cognitive needs: No Hearing needs: No Vision needs: No Review of Systems Const All systems reviewed & are unremarkable except as noted in HPI and below Eyes Reports no additional complaints ENT Reports no additional complaints Card Reports no additional complaints Resp Reports no additional complaints GI Reports no additional complaints Physical Exam Const General: healthy appearing HEENT Head: Yes normal to inspection and Yes normocephalic Ears: hearing grossly normal bilaterally, external ears normal, TM's normal bilaterally, TM normal on the right, TM normal on the left, EAC's normal and no periauricular adenopathy General nose exam: Normal external nose present Face and sinus: Yes sinus tenderness (maxillary) Mouth: oropharynx normal (post nasal drip) Throat: Yes postnasal drainage Eyes General: appearance normal, both eyes and all related structures Resp Effort & Inspection: normal respiratory effort Auscultation: clear to auscultation bilaterally Cardio Rate: regular rate Rhythm: regular rhythm Heart sounds: S1 normal heart sound present and S2 normal heart sound present Assessment & Plan Assessment & Plan (1) Sinusitis: Code(s): J32.9 - Chronic sinusitis, unspecified Plan: The patient will take antibiotics for 7 days. Return to PCP or urgent care if further treatment needed Plan See plan Medications: New amoxicillin 875 mg PO BID 14 tabs 0RF 7 days Coding Level of Care Code Est Pt Level 3 (44588) Diagnoses Sinusitis J32.9
[2024-02-11 08:16] VITALS: BP 150/88; PULSE 74; TEMP 36.7; O2SAT 98
== END 2024-02-11 09:14 | disposition home or self-care (01) ==
PROVIDERS: PCP Nurse Practitioner Family; Visit Provider Physician Assistant Medical
DX: J32.9 Chronic sinusitis, unspecified (principal)
CPT/HCPCS: 99213

== ENCOUNTER 2024-03-16 10:02 | Outpatient (AMB) | payer OTHER, SELFPAY ==
--- NOTE | 2024-03-16 10:06 | MHC.PC.OV ---
Vital Signs 03/16/24 10:08 Weight 220 lb BP 140/90 H Blood Pressure Location Lt brachial Position Sitting Pulse 78 Pulse Source Pulse Oximeter Pulse Oximetry (%) 95 Oxygen Delivery Method Room Air Intake Visit Reasons: Discuss labs Intake Note: Patient here to discuss labs Allergies No Known Allergies Allergy (Verified 03/16/24 10:34) Medication List - Last Reconciled 03/16/24 by LEIGH Leong amlodipine 10 mg PO DAILY aspirin 81 mg PO DAILY atorvastatin 80 mg PO DAILY cholecalciferol (vitamin D3) 50 mcg PO DAILY 90 days fluticasone propionate 50 mcg/actuation 1 spray intranasal Q12H PRN levocetirizine (Xyzal) 5 mg PO DAILY lorazepam 0.5 mg PO DAILY PRN metoprolol succinate ER 200 mg (2 x 100 mg) PO DAILY 90 days montelukast 10 mg PO BEDTIME 90 days nitroglycerin 0.4 mg sublingual Q5M PRN spironolactone 25 mg PO DAILY Tobacco use date assessed: 03/16/24 Dental Screening Dental Screen Date: 03/16/24 Did you have a dental visit in the last 12 months?: No Did you have a dental problem in the last 6 months where you did not have access to dental care?: No Was dental information given to patient?: No HPI Discuss labs HPI Details Pt c/o fatigue. He reports having very little energy and motivation to do things. Pt also reports loss of strength and muscle tone, though not as active at home during the winter months. He also reports some memory loss. Will order labs. Penile spot of discoloration for years, reporting growing in size, does not have tenderness. Further noticed skin tag vs wart. referring to urology. HTN: Will have pt monitor his BP at home and drop off readings in the near future. Denies chest pain, shortness of breath, headache, dizziness, and blurred vision. [facility] Medical History CAD (coronary artery disease) Smoker Meniere disease Diverticulosis Panic attack Somnolence Cholelithiasis Dyslipidemia Morbid obesity CAROLYN (obstructive sleep apnea) Essential hypertension Atherosclerotic cardiovascular disease Surgical History Hx of colonoscopy S/P cholecystectomy History of arthroscopy of left knee History of heart artery stent History of tonsillectomy History of cardiac catheterization (~08/2018) Family History Father Hypertension Coronary artery disease Kidney failure Mother No problems noted. Maternal Grandfather Coronary artery disease History of heart attack Brother Crohn's disease Sister No problems noted. Sister No problems noted. Sister No problems noted. Social History Household Members: Spouse Housing: House Alcohol intake: current Alcohol intake frequency: holidays/special occasions only Patient Tobacco Use Status: Current everyday Tobacco user Tobacco use type: Cigarette Cigarette Packs Per Day: 1 Cigarettes Per Day: 20.0 Years Smoked: 30 e-Cigarette/Vaping Use: Never Used Second Hand Smoke Exposure: No service: No Current occupational status: employed Cognitive needs: No Hearing needs: No Vision needs: No Questionnaire Thrive Questionnaire Date Thrive assessed: 12/16/22 AUDIT C Alcohol Use Questionnaire (AUDIT-C) 1. How often do you have a drink containing alcohol?: Never 3. How often do you have six or more drinks on one occasion?: Never Total Score: 0 Score Reviewed/Action Taken: No CHARLES-7 AMB Questionnaire CHARLES-7 Date CHARLES - 7 assessed: 12/16/22 Source: Developed by Drs. Robin Tate, Maryann Koehler, Dov Obrien and colleagues, with an educational erika from [employer]. Review of Systems Const Reports as per HPI Physical exam (Primary Care) Vital Signs: Last Vital Signs Pulse 78 03/16/24 10:08 BP 140/90 H 03/16/24 10:08 Pulse Ox 95 03/16/24 10:08 Oxygen Delivery Method Room Air 03/16/24 10:08 Tobacco/Smoking Status: Tobacco use Status Tobacco use date assessed 03/16/24 03/16/24 10:10 Patient Tobacco Use Status Current everyday Tobacco 03/16/24 10:07 Tobacco use type Cigarette 03/16/24 10:07 e-Cigarette/Vaping Use Never Used 03/16/24 10:07 Thrive Assessment: Date of Thrive Assessment Date Thrive assessed 12/16/22 03/16/24 10:07 Const General: cooperative Nutritional Appearance: obese Orientation/consciousness: patient oriented x3 Resp Effort & Inspection: normal respiratory effort Auscultation: clear to auscultation bilaterally Cardio Rate: regular rate Rhythm: regular rhythm Heart sounds: S1 normal heart sound present, S2 normal heart sound present and no murmurs Other: left, inferior, penile shaft with large macular purplish colored lesion. Center with ? skin tag vs gential wart (papular lesion with smaller lesion adjacent) Male genitals images: 1. 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 Scribed for LEIGH Villalta by Bettye Rogers ophthalmic medical technician, on 03/16/2024 at 10:30 EST. 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
[2024-03-16 10:08] VITALS: BP 140/90; PULSE 78; O2SAT 95
== END 2024-03-16 17:13 | disposition home or self-care (01) ==
PROVIDERS: PCP Nurse Practitioner Family; Visit Provider Nurse Practitioner Family
DX: R53.83 Other fatigue (principal); G47.411 Narcolepsy with cataplexy; R41.3 Other amnesia; N48.9 Disorder of penis, unspecified; I10 Essential (primary) hypertension; F17.210 Nicotine dependence, cigarettes, uncomplicated
CPT/HCPCS: 99213

== ENCOUNTER 2024-03-16 15:04 | Outpatient (AMB) | payer OTHER, SELFPAY ==
[2024-03-16 15:17] VITALS: BP 160/80; PULSE 65; BMI 43.7
--- NOTE | 2024-03-16 15:17 | MHC.OFFVIS ---
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: No Accompanied by: Self / Same As Patient Allergies No Known Allergies Allergy (Verified 03/16/24 10:34) Medication List - Last Reconciled 03/16/24 by Keanu Rodgers MD amlodipine 10 mg PO DAILY aspirin 81 mg PO DAILY atorvastatin 80 mg PO DAILY cholecalciferol (vitamin D3) 50 mcg PO DAILY 90 days fluticasone propionate 50 mcg/actuation 1 spray intranasal Q12H PRN levocetirizine (Xyzal) 5 mg PO DAILY lorazepam 0.5 mg PO DAILY PRN metoprolol succinate ER 200 mg (2 x 100 mg) PO DAILY 90 days montelukast 10 mg PO BEDTIME 90 days nitroglycerin 0.4 mg sublingual Q5M PRN spironolactone 25 mg PO DAILY HPI HPI Comments History of Present Illness Details Kin returns for follow-up regarding coronary disease. He underwent stenting of his right coronary artery in the past. From cardiac, no specific complaints. No angina or in fact anything along those lines. Weight is still an issue. More or less the same as before. REPLACED BY [facility] Medical History CAD (coronary artery disease) Smoker Meniere disease Diverticulosis Panic attack Somnolence Cholelithiasis Dyslipidemia Morbid obesity CAROLYN (obstructive sleep apnea) Essential hypertension Atherosclerotic cardiovascular disease Surgical History Hx of colonoscopy S/P cholecystectomy History of arthroscopy of left knee History of heart artery stent History of tonsillectomy History of cardiac catheterization (~08/2018) Family History Father Hypertension Coronary artery disease Kidney failure Mother No problems noted. Maternal Grandfather Coronary artery disease History of heart attack Brother Crohn's disease Sister No problems noted. Sister No problems noted. Sister No problems noted. Social History Household Members: Spouse Housing: House Alcohol intake: current Alcohol intake frequency: holidays/special occasions only Patient Tobacco Use Status: Current everyday Tobacco user Tobacco use type: Cigarette Cigarette Packs Per Day: 1 Cigarettes Per Day: 20.0 Years Smoked: 30 e-Cigarette/Vaping Use: Never Used Second Hand Smoke Exposure: No service: No Current occupational status: employed Cognitive needs: No Hearing needs: No Vision needs: No Review of Systems Const Denies chills, Denies fatigue, Denies fever(s), Denies frequent falls, Denies weakness, Denies weight gain and Denies weight loss ENT Denies dizziness Card Denies chest pain, Denies leg edema, Denies lightheadedness, Denies palpitations, Denies dyspnea and Denies dyspnea on exertion Resp Denies cough, Denies dyspnea and Denies dyspnea on exertion GI Denies hematochezia Musc Denies abnormal gait, Denies muscle weakness, Denies numbness, Denies radiating pain into limb and Denies tingling Neuro Denies abnormal gait, Denies dizziness, Denies frequent falls, Denies numbness, Denies tingling and Denies weakness Endo Denies fatigue and Denies palpitations Physical Exam Vital Signs: Last Vital Signs Pulse 65 03/16/24 15:17 BP 160/80 H 03/16/24 15:17 BMI result Body Mass Index 43.7 Const General: comfortable and no acute distress Orientation/consciousness: patient oriented x3 HEENT Other: Unremarkable Head: Yes normal to inspection Neck Neck: Yes normal visual inspection Chest Chest palpation & inspection: normal inspection of the chest Resp Auscultation: clear to auscultation bilaterally Cardio Palpation: normal PMI Heart sounds: S1 normal heart sound present, S2 normal heart sound present, no gallops, no murmurs and no rubs GI Palpation (GI): Soft to palpation Back/Spine/Pelvis Other: unremarkable Skin General skin exam: no rashes or lesions noted Neuro General: patient oriented x3 Extrem General: Yes normal to inspection Psych Mental Status: mental status grossly normal Office Procedures EKG Details: EKG with sinus bradycardia at 58/Min; nonspecific interventricular conduction delay; [place] [id number], Complete Assessment & Plan Assessment & Plan (1) Atherosclerotic cardiovascular disease: Code(s): I25.10 - Atherosclerotic heart disease of [place] coronary artery without angina pectoris (2) Morbid obesity: Comment: Code(s): E66.01 - Morbid (severe) obesity due to excess calories (3) Essential hypertension: Code(s): I10 - Essential (primary) hypertension Plan Cardiac studies reviewed. Last cardiac catheterization reviewed. Right coronary artery stent patent. 60% stenosis in the proximal LAD but with good runoff. 40% stenosis in the distal part of mid right coronary artery. Circumflex and left main unremarkable. Normal IFR but abnormal FFR in the LAD. Last echocardiogram LVEF of 60%. Otherwise unremarkable. Myocardial perfusion imaging study from 2021 showed no evidence of any ischemia or infarction. Overall, stable CAD with comorbidities. Continue long-term aspirin. Continue beta-blockers and statins. With regard to weight, continues to be an issue. Again discussed about possibly seeing someone in bariatrics but he is still reluctant. He is well aware of the fact that the weight is probably the biggest issue. With regard to hypertension, on the higher side. He may need an agent like JESUS inhibitor or ARB but he wants to just do some home readings for the next few weeks and get in touch with his PCP. He would rather not start anything new today. Coding Level of Care Code Est Pt Level 4 (75971) Diagnoses Atherosclerotic cardiovascular disease I25.10 Morbid obesity E66.01 Essential hypertension I10 CPT Codes EKG - CPT: 91720-[id number], Complete ([id number])
== END 2024-03-16 15:47 | disposition home or self-care (01) ==
PROVIDERS: Visit Provider Internal Medicine
DX: I25.10 Atherosclerotic heart disease of native coronary artery without angina pectoris (principal); E66.01 Morbid (severe) obesity due to excess calories; I10 Essential (primary) hypertension
CPT/HCPCS: 93010; 99214

== ENCOUNTER → 2024-03-16 15:04 | Outpatient (BNVA) | payer OTHER, SELFPAY | PROVIDERS: Visit Provider Internal Medicine | DX: I25.10 Atherosclerotic heart disease of native coronary artery without angina pectoris (principal); I10 Essential (primary) hypertension; E66.01 Morbid (severe) obesity due to excess calories; Z68.41 Body mass index [BMI] 40.0-44.9, adult; R00.1 Bradycardia, unspecified; I45.9 Conduction disorder, unspecified | CPT/HCPCS: 93005; 99212 ==

== ENCOUNTER 2024-03-17 07:47 | Outpatient (REF) | payer OTHER, SELFPAY ==
[2024-03-17 08:52] LABS: MANUAL DIFF FLAG NO
[2024-03-17 09:21] LABS: Basophils Absolute Auto 0.1 X10*3/uL (0.0-0.2); Basophils Percent Auto 0.6 % (0-2); Eosinophils Absolute Auto 0.2 X10*3/uL (0.0-0.4); Eosinophils Percent Auto 2.1 % (0-4); Hematocrit 48.1 % (42.0-52.0); Hemoglobin 16.5 g/dl (14.0-18.0); Imm Gran Abs Auto 0.04 X10*3/uL (0.00-0.03); Imm Gran Pct Auto 0.4 % (0.0-0.4); Lymphocytes Absolute Auto 2.2 X10*3/uL (1.2-4.9); Lymphocytes Percent Auto 22.9 % (20-40); Mean Corpuscular HGB Conc 34.3 g/dl (31.0-36.0); Mean Corpuscular Hemoglobin 28.8 pg (27.0-33.0); Mean Corpuscular Volume 84.1 fL (80.0-98.0); Mean Platelet Volume 11.2 fL (9.4-12.4); Monocytes Absolute Auto 0.7 X10*3/uL (0.1-1.2); Monocytes Percent Auto 7.4 % (2-11); Neutrophils Absolute Auto 6.5 x10*3/uL (2.0-8.3); Neutrophils Percent Auto 66.6 % (45-73); Platelet Count 220 X10*3/uL (160-400); Red Blood Count 5.72 X10*6/uL (4.60-5.80); Red Cell Distribution Width 13.1 % (11.0-16.0); White Blood Count 9.8 X10*3/uL (4.8-10.8)
[2024-03-17 10:48] LABS: Folate 5.2 ng/mL (> or = 4.0); Vitamin B12 409 pg/mL (200-900)
[2024-03-17 11:18] LABS: Alanine Aminotransferase 22 U/L (0-40); Albumin Level 4.4 g/dL (3.5-5.0); Alkaline Phosphatase 117 U/L (39-117); Anion Gap 11 (12-20); Aspartate Amino Transferase 15 U/L (5-37); Bilirubin Total 0.6 mg/dL (0.0-1.0); Blood Urea Nitrogen 16 mg/dL (9-16); Calcium 9.3 mg/dL (8.4-10.2); Carbon Dioxide 27 mmol/L (22-29); Chloride 107 mmol/L (96-108); Estimated Glomerular Filt Rate > 60; Glucose Fasting 98 mg/dL (60-99); Iron 98 mcg/dL (45-160); Percent Iron Saturation 40 % (15-50); Potassium 3.8 mmol/L (3.3-5.1); Sodium 141 mmol/L (135-145); Total Iron Binding Capacity 244 mcg/dL (228-428); Total Protein 7.1 g/dL (6.5-8.0); Unsaturated Iron Binding 146 ug/dL
[2024-03-17 11:39] LABS: Ferritin 234 ng/mL (20-250); Vitamin D 25-OH Total 33.3 ng/mL (>30)
[2024-03-18 10:58] LABS: Follicle Stimulating Hormone 3.6 mIU/mL (1.4-12.8); Lutenizing Hormone 3.4 mIU/mL (1.5-9.3)
[2024-03-18 16:48] LABS: Homocysteine 10.7 umol/L (<11.4)
[2024-03-18 22:39] LABS: A. Phagocytphilium DNA,RT-PCR NOT DETECTED (NOT DETECTED); Babesia Microti DNA, RT-PCR NOT DETECTED (NOT DETECTED); Borrelia Miyamotoi,DNA RT-PCR NOT DETECTED (NOT DETECTED); E.Chaffeensis DNA RT-PCR NOT DETECTED (NOT DETECTED); Lyme(Borrelia ssp)DNA RT-PCR NOT DETECTED (NOT DETECTED)
[2024-03-21 16:34] LABS: Testosterone, Free 65.8 pg/mL (35.0-155.0); Testosterone, Total 558 ng/dL (250-1100)
[2024-03-22 06:19] LABS: Methylmalonic Acid 147 nmol/L (87-318)
[2024-03-22 13:18] LABS: Anti Nuclear Antibody Screen POSITIVE (NEGATIVE); Anti Nuclear Antibody Titer 1:40 titer
== END 2024-03-17 07:48 | disposition home or self-care (01) ==
LOC: HO.HMGCLDS 07:47
PROVIDERS: PCP Nurse Practitioner Family; Visit Provider Nurse Practitioner Family
DX: G47.411 Narcolepsy with cataplexy (principal); R53.83 Other fatigue; R41.3 Other amnesia
CPT/HCPCS: 36415; 80053; 82306; 82607; 82728; 82746; 83001; 83002; 83090; 83540; 83921; 84402; 84403; 85025; 86038; 86039; 87468; 87469; 87478; 87484; 87798

== ENCOUNTER 2024-05-04 13:48 | Outpatient (AMB) | payer OTHER, SELFPAY ==
--- NOTE | 2024-05-04 14:18 | A.OFFVIS_ITS ---
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 Accompanied by: Self / Same As Patient Allergies No Known Allergies Allergy (Verified 05/04/24 21:12) Medication List - Last Reconciled 05/04/24 by SAM Felder amlodipine 10 mg PO DAILY aspirin 81 mg PO DAILY atorvastatin 80 mg PO DAILY cholecalciferol (vitamin D3) 50 mcg PO DAILY 90 days fluticasone propionate 50 mcg/actuation 1 spray intranasal Q12H PRN levocetirizine (Xyzal) 5 mg PO DAILY lorazepam 0.5 mg PO DAILY PRN metoprolol succinate ER 200 mg (2 x 100 mg) PO DAILY 90 days montelukast 10 mg PO BEDTIME 90 days nitroglycerin 0.4 mg sublingual Q5M PRN spironolactone 25 mg PO DAILY HPI Comments Details: Kin is a pleasant 48-year-old male patient of Dr. Palacios. He has a PMH of coronary artery disease, smoker, Meniere's disease, diverticulitis, somnolence, dyslipidemia, hypertension, atherosclerotic cardiovascular disease, sleep apnea, and obesity. He presents to the office today as a new patient for penile warts. In discussion with the patient today reports having followed up with his PCP at which time recommendations were made for urology referral for further assessment evaluation. In assessment of the patient today question of penile melanosis to the left side of the shaft of the penis. It is approximately the size of a nickel. When asked he reports discoloration to have been present for quite some time however does feel it is getting larger in size. He denies any previous and or recent trauma to the area. Patient with 2 very small penile warts on the top of the discolored area that patient reports have been present since he was in high school/college. There is also a very small ulcerated area to the sulcus of the penis. No drainage or foul odor noted. He otherwise denies any bothersome urinary issues. He denies urinary urgency, urinary frequency, incontinence, nocturia, hematuria, dysuria, foul smelling urine, changes to urinary stream, flank pain, fever, and or chills. He is happy with his current voiding parameters. Discussed at length potential causes of penile warts as well as discoloration noted to the shaft of the penis. Discussed further treatment options with surveillance monitoring versus surgical intervention. Dr. Talavera in to assess patient. All questions were answered. He otherwise offers no other issues or concerns at this time. [facility] Medical History CAD (coronary artery disease) Smoker Meniere disease Diverticulosis Panic attack Somnolence Cholelithiasis Dyslipidemia Morbid obesity CAROLYN (obstructive sleep apnea) Essential hypertension Atherosclerotic cardiovascular disease Surgical History Hx of colonoscopy S/P cholecystectomy History of arthroscopy of left knee History of heart artery stent History of tonsillectomy History of cardiac catheterization (~08/2018) Family History Father Hypertension Coronary artery disease Kidney failure Mother No problems noted. Maternal Grandfather Coronary artery disease History of heart attack Brother Crohn's disease Sister No problems noted. Sister No problems noted. Sister No problems noted. Social History Household Members: Spouse Housing: House Alcohol intake: current Alcohol intake frequency: holidays/special occasions only Patient Tobacco Use Status: Current everyday Tobacco user Tobacco use type: Cigarette Cigarette Packs Per Day: 1 Cigarettes Per Day: 20.0 Years Smoked: 30 e-Cigarette/Vaping Use: Never Used Second Hand Smoke Exposure: No service: No Current occupational status: employed Cognitive needs: No Hearing needs: No Vision needs: No Review of Systems Const Reports no additional complaints Eyes Reports no additional complaints ENT Reports no additional complaints Card Reports as per HPI Resp Reports no additional complaints GI Reports no additional complaints Reports as per HPI Musc Reports no additional complaints Neuro Reports as per HPI Psych Reports as per HPI Endo Reports no additional complaints Physical Exam Const General: cooperative, healthy appearing, comfortable, no acute distress, well developed, alert and awake Nutritional Appearance: overweight Orientation/consciousness: patient oriented x3 Limitations: no limitations HEENT Head: Yes normal to inspection, Yes normocephalic and Yes atraumatic Ears: hearing grossly normal bilaterally Eyes General: appearance normal, both eyes and all related structures Neck Neck: Yes normal visual inspection and Yes trachea midline Chest Chest palpation & inspection: normal inspection of the chest Resp Effort & Inspection: normal respiratory effort and able to speak in complete sentences Cardio Rate: regular rate GI Inspection: Yes normal to inspection General: Yes no CVA tenderness Back/Spine/Pelvis Back: no CVA tenderness Skin General skin exam: no rashes or lesions noted Neuro General: patient oriented x3 Extrem General: Yes normal to inspection Psych Appearance: grossly normal and well kempt Mental Status: mental status grossly normal Speech and movement: Normal speech and movement present and Clear speech present Affect: normal affect Attitude: cooperative Thought process: Normal thought process present Thought content: Normal thought content present Insight: Fair insight present (Psych) Judgement: Fair judgement present (Psych) Results AMB Urinalysis, Automated UA Leukoctes 0 Cici/uL Last Edit by [employer] on 05/04/24 14:31 UA Nitrite Negative Last Edit by [employer] on 05/04/24 14:31 UA Urobilinogen 0.2 mg/dL Last Edit by [employer] on 05/04/24 14:31 UA Protein 15 mg/dL Last Edit by [employer] on 05/04/24 14:31 UA pH 5.5 Last Edit by [employer] on 05/04/24 14:31 UA Blood 0 Agustín/uL Last Edit by [employer] on 05/04/24 14:31 UA Specific [place] 1.030 Last Edit by [employer] on 05/04/24 14:31 UA Ketone Negative Last Edit by [employer] on 05/04/24 14:31 UA Bilirubin 0 mg/dL Last Edit by [employer] on 05/04/24 14:31 UA Glucose 0 mg/dL Last Edit by [employer] on 05/04/24 14:31 Results Reviewed Results Reviewed: Laboratory Last Values Urine pH (Auto) 5.5 05/04/24 14:20 Specific [place] (Auto) 1.030 05/04/24 14:20 Urine Protein (Auto) 15 mg/dL 05/04/24 14:20 Glucose (UA)(Auto) 0 mg/dL 05/04/24 14:20 Urine Ketones (Auto) Negative 05/04/24 14:20 Urine Blood (Auto) 0 Agustín/uL 05/04/24 14:20 Urine Nitrite (Auto) Negative 05/04/24 14:20 Urine Bilirubin (Auto) 0 mg/dL 05/04/24 14:20 Urine Urobilinogen (Auto) 0.2 mg/dL 05/04/24 14:20 Leukocyte Esterase (Auto) 0 Cici/uL 05/04/24 14:20 Assessment & Plan Assessment & Plan (1) Penile lesion: Code(s): N48.9 - Disorder of penis, unspecified Category: Medical (2) Genital warts: Code(s): A63.0 - Anogenital (venereal) warts Category: Medical (3) Penile abnormality: Code(s): N48.9 - Disorder of penis, unspecified Category: Medical Plan: Risks, benefits and alternatives to therapy were discussed. These include but are not limited to infection, bleeding, damage to local organs and tissues, need for further interventions. ? Anesthetic risks regarding cardiac arrhythmia, blood clots, and potential mortality were discussed. The patient understands the typical recovery time and the outpatient nature of the procedure. After consideration of these risks the patient gives full informed consent and they wish to move ahead with the procedure. Plan In office urinalysis results reviewed with the patient today; microscopic hematuria noted will send for urine cytology given patient's history of nicotine dependence. Discussed further microscopic hematuria workup to include CT urogram, urine cytology, and in office cystoscopy; discussed risks and benefits of further workup versus surveillance monitoring. Patient would like to continue with surveillance monitoring at this time. Discussed further treatment options with surveillance monitoring verses surgical intervention to include laser of genital warts and biopsy of discolored area to the shaft of the penis. He otherwise denies any bothersome urinary issues or concerns. He is happy with his current voiding parameters. Will schedule for surgical procedure as discussed; risks and benefits were discussed at length; all questions were answered Follow-up per Dr. Talavera's orders; or sooner with any issues, concerns, and or questions. Orders: Orders Urine Cytology Today Z13.9 - Encounter for screening, unspecified AMB Urinalysis Automated Today Z13.9 - Encounter for screening, unspecified Patient Instructions: The patient had an opportunity to ask questions regarding the treatment plan. All questions were answered. Physical exam, labs, and imaging were discussed and reviewed in detail. As well as risks, benefits, and discussion of treatment choices. No major barriers to understanding were identified. The patient expressed understanding and agreement with the above treatment plan. The patient was made aware they should contact our office by phone for worsening of their current condition, the appearance of new symptoms, or with any questions or concerns. Compliance is encouraged with any medications and follow up testing that is ordered. It is a privilege to be allowed the opportunity to participate in? your urological care.? Again, if you have any questions or concerns If you have any questions or concerns please do not hesitate to contact me. The office is [phone]. This note is constructed using voice recognition software. While every effort has been made to ensure accuracy production checker errors may have been included. Yours sincerely, LEIGH Felder Coding Level of Care Code New Pt Level 4 (48555) Diagnoses Penile lesion N48.9 Genital warts A63.0 Penile abnormality N48.9
== END 2024-05-04 15:04 | disposition home or self-care (01) ==
PROVIDERS: PCP Nurse Practitioner Family; Visit Provider Nurse Practitioner Family
DX: N48.9 Disorder of penis, unspecified (principal); A63.0 Anogenital (venereal) warts; Z13.9 Encounter for screening, unspecified
CPT/HCPCS: 99204

== ENCOUNTER 2024-05-04 13:48 | Outpatient (REF) | payer OTHER, SELFPAY ==
[2024-05-04 16:27] LABS: Urine Cytology See Pathology rpt
== END 2024-05-04 13:49 | disposition home or self-care (01) ==
LOC: HO.LNP 13:48
PROVIDERS: PCP Nurse Practitioner Family; Visit Provider Nurse Practitioner Family
DX: A63.0 Anogenital (venereal) warts (principal); L98.499 Non-pressure chronic ulcer of skin of other sites with unspecified severity
CPT/HCPCS: 81003; 88112; 99202

== ENCOUNTER 2024-05-13 15:11 | Outpatient (AMB) | payer OTHER, SELFPAY ==
[2024-05-13 15:16] VITALS: BP 140/82; PULSE 60; TEMP 36.7; O2SAT 98; BMI 45.3
--- NOTE | 2024-05-13 15:16 | MHC.OFFWIV ---
Intake Vital Signs 05/13/24 15:16 Height 5 ft 11 in Weight 325 lb BMI 45.3 BP 140/82 H Blood Pressure Location Rt brachial Position Sitting Pulse 60 Pulse Source Pulse Oximeter Temp 98.1 F Temp Source Oral Pulse Oximetry (%) 98 Oxygen Delivery Method Room Air Intake Visit Reasons: EP ?sinus infection Intake Note: pt is here for c.o sinus infection Patient Tobacco Use Status: Current everyday Tobacco user Allergies No Known Allergies Allergy (Verified 05/13/24 15:17) Do you need a note to return to daycare/school/sports/work: No HPI HPI Comments History of Present Illness Details 48 y/o male patient who presents to walk in clinic with c/o Sinus pressure since Friday. Pt reports that he has a Sinus infection and needs Abx plus Steroids. Pt reports getting frequent Infections this time of season. Denies fevers, chills, nausea or vomiting. [facility] Medical History CAD (coronary artery disease) Smoker Meniere disease Diverticulosis Panic attack Somnolence Cholelithiasis Dyslipidemia Morbid obesity CAROLYN (obstructive sleep apnea) Essential hypertension Atherosclerotic cardiovascular disease Surgical History Hx of colonoscopy S/P cholecystectomy History of arthroscopy of left knee History of heart artery stent History of tonsillectomy History of cardiac catheterization (~08/2018) Family History Father Hypertension Coronary artery disease Kidney failure Mother No problems noted. Maternal Grandfather Coronary artery disease History of heart attack Brother Crohn's disease Sister No problems noted. Sister No problems noted. Sister No problems noted. Social History Household Members: Spouse Housing: House Alcohol intake: current Alcohol intake frequency: holidays/special occasions only Patient Tobacco Use Status: Current everyday Tobacco user Tobacco use type: Cigarette Cigarette Packs Per Day: 1 Cigarettes Per Day: 20.0 Years Smoked: 30 e-Cigarette/Vaping Use: Never Used Second Hand Smoke Exposure: No service: No Current occupational status: employed Cognitive needs: No Hearing needs: No Vision needs: No Review of Systems Const All systems reviewed & are unremarkable except as noted in HPI and below Physical Exam Vital Signs: Last Vital Signs Temp 98.1 F 05/13/24 15:16 Pulse 60 05/13/24 15:16 BP 140/82 H 05/13/24 15:16 Pulse Ox 98 05/13/24 15:16 Oxygen Delivery Method Room Air 05/13/24 15:16 BMI result Body Mass Index 45.3 Const General: comfortable and no acute distress Nutritional Appearance: obese Orientation/consciousness: patient oriented x3 HEENT Head: Yes normocephalic Ears: external ears normal and TM abnormal bulging bilateral, erythematous bilateral and with fluid behind the TM bilateral; not perforated and not retracted General nose exam: Abnormal mucous membranes and turbinates present boggy and erythematous Face and sinus: Yes sinuses nontender Mouth: moist mucous membranes Throat: Yes postnasal drainage Resp Effort & Inspection: normal respiratory effort and able to speak in complete sentences Auscultation: clear to auscultation bilaterally, no crackles, no rales, no rhonchi and no wheezes Cardio Rate: regular rate Rhythm: regular rhythm Neuro General: patient oriented x3 Assessment & Plan Assessment & Plan (1) Acute sinusitis, unspecified: Code(s): J01.90 - Acute sinusitis, unspecified Qualifiers: Sinusitis location: unspecified location Recurrence: non-recurrent Qualified Code(s): J01.90 - Acute sinusitis, unspecified Plan: Bacterial vs Viral vs Allergy Sudafed, Afrin and Zyrtec as prescribed Abx has requested by Patient. Medications: New cetirizine (Zyrtec) 10 mg PO DAILY PRN 20 tabs 0RF allergy symptoms J01.90 - Acute sinusitis, unspecified oxymetazoline 0.05% (Afrin (oxymetazoline)) 2 sprays intranasal Q12H 3 days PRN 15 mL 0RF nasal congestion J01.90 - Acute sinusitis, unspecified pseudoephedrine HCl ER (Sudafed 12 Hour) 120 mg PO Q12H 30 tabs 0RF J01.90 - Acute sinusitis, unspecified amoxicillin 500 mg PO BID 10 days 20 caps 0RF J01.90 - Acute sinusitis, unspecified Coding Level of Care Code Est Pt Level 3 (69271) Diagnoses Acute non-recurrent sinusitis, unspecified location J01.90 Sinusitis location: unspecified location Recurrence: non-recurrent Time Spent (min) 15
== END 2024-05-13 16:32 | disposition home or self-care (01) ==
PROVIDERS: PCP Nurse Practitioner Family; Visit Provider Nurse Practitioner Family
DX: J01.90 Acute sinusitis, unspecified (principal)
CPT/HCPCS: 99213

== ENCOUNTER 2024-06-14 13:24 | Day surgery (SDC) | payer OTHER, SELFPAY ==
[2024-06-10 14:16] VITALS: BMI 43.6
--- NOTE | 2024-06-11 11:58 | HO.ANESPROP2 ---
Documented by User: Lea Muse NP 06/11/24 12:00 HPI - Anesthesia Eval Consult details Narrative: 49yo M for Removal if Genital Wart with C02 laser and Biopsy BMI: 43% Follows [facility] [place] cardiology for CAD s/p stent . Last office visit 03/2024, stable without complaints PMFSH Active Problems Active Problems: All Active Problems Penile abnormality (Acute) Genital warts (Acute) Positive MONI (antinuclear antibody) (Acute) Penile lesion (Acute) Memory loss (Acute) Transient total loss of muscle tone (Acute) Fatigue (Acute) Sinusitis (Acute) Headache associated with sexual activity (Acute) Smoking (Acute) Chronic disease of ear (Acute) Otitis media (Acute) Dysfunction of eustachian tube (Acute) HTN (hypertension) (Acute) Obesity (Acute) Screening for colon cancer (Acute) Diarrhea (Acute) Physical exam (Acute) Accessory skin tags (Acute) Precordial chest pain (Acute) Seasonal allergies (Acute) Recurrent acute sinusitis (Acute) Upper abdominal pain (Acute) Chronic sinusitis (Acute) Diverticulosis (Acute) Somnolence (Acute) S/P cholecystectomy (Acute) Atherosclerotic cardiovascular disease (Acute) Dyslipidemia (Acute) Morbid obesity (Acute) CAROLYN (obstructive sleep apnea) (Chronic) Past Medical History Medical History CAD (coronary artery disease) Smoker Meniere disease Diverticulosis Panic attack Somnolence Cholelithiasis Dyslipidemia Morbid obesity CAROLYN (obstructive sleep apnea) Essential hypertension Atherosclerotic cardiovascular disease Family History Family History Father Hypertension Coronary artery disease Kidney failure Mother No problems noted. Maternal Grandfather Coronary artery disease History of heart attack Brother Crohn's disease Sister No problems noted. Sister No problems noted. Sister No problems noted. Family history of problems with anesthesia: No Surgical History Surgical History Hx of colonoscopy S/P cholecystectomy History of arthroscopy of left knee History of heart artery stent History of tonsillectomy History of cardiac catheterization (~08/2018) History of Problems with Anesthesia: Yes Social History Social History Household Members: Spouse Housing: House Alcohol intake: current Alcohol intake frequency: holidays/special occasions only Patient Tobacco Use Status: Current everyday Tobacco user Tobacco use type: Cigarette Cigarette Packs Per Day: 1 Cigarettes Per Day: 20.0 Years Smoked: 30 Smoked in Last 30 Days: Yes e-Cigarette/Vaping Use: Never Used Second Hand Smoke Exposure: No Use of substances other than those prescribed or required for medical reasons: No Are you DNR?: No Advance Directives: No Advance Directives Information Provided: Yes service: No Current occupational status: employed Cognitive needs: No Hearing needs: No Vision needs: No Meds Allergies Allergy/AdvReac Type Severity Reaction Status Date / Time No Known Allergies Allergy Verified 06/14/24 14:23 Exam Height,Weight and Vital Signs: Height 5 ft 11 in Weight 141.974 kg Pertinent Lab Results Pertinent Lab Results: Laboratory Tests 03/17/24 08:49 WBC 9.8 Hgb 16.5 Hct 48.1 Plt Count 220 Sodium 141 Potassium 3.8 Chloride 107 Carbon Dioxide 27 BUN 16 Creatinine 0.92 Narrative Narrative: Per 03/2024 cardiology note: EKG with sinus bradycardia at 58/Min; nonspecific interventricular conduction delay; normal SD and corrected QT. Last cardiac catheterization reviewed. Right coronary artery stent patent. 60% stenosis in the proximal LAD but with good runoff. 40% stenosis in the distal part of mid right coronary artery. Circumflex and left main unremarkable. Normal IFR but abnormal FFR in the LAD. Last echocardiogram LVEF of 60%. Otherwise unremarkable. Myocardial perfusion imaging study from 2021 showed no evidence of any ischemia or infarction. Assessment and Plan Assessment Anesthesia Assessment: Chart Reviewed Final Anesthetic Review Family History of Problems with Anesthesia: No History of Problems with Anesthesia: Yes Documented by User: Silvio Orta MD 06/14/24 15:55 [facility] Past Medical History Medical History CAD (coronary artery disease) Smoker Meniere disease Diverticulosis Panic attack Somnolence Cholelithiasis Dyslipidemia Morbid obesity CAROLYN (obstructive sleep apnea) Essential hypertension Atherosclerotic cardiovascular disease Family History Family History Father Hypertension Coronary artery disease Kidney failure Mother No problems noted. Maternal Grandfather Coronary artery disease History of heart attack Brother Crohn's disease Sister No problems noted. Sister No problems noted. Sister No problems noted. Surgical History Surgical History Hx of colonoscopy S/P cholecystectomy History of arthroscopy of left knee History of heart artery stent History of tonsillectomy History of cardiac catheterization (~08/2018) History of Problems with Anesthesia: Yes (severe anxiety ) Social History Social History Household Members: Spouse Housing: House Alcohol intake: current Alcohol intake frequency: holidays/special occasions only Patient Tobacco Use Status: Current everyday Tobacco user Tobacco use type: Cigarette Cigarette Packs Per Day: 1 Cigarettes Per Day: 20.0 Years Smoked: 30 Smoked in Last 30 Days: Yes e-Cigarette/Vaping Use: Never Used Second Hand Smoke Exposure: No Use of substances other than those prescribed or required for medical reasons: No Are you DNR?: No Advance Directives: No Advance Directives Information Provided: Yes service: No Current occupational status: employed Cognitive needs: No Hearing needs: No Vision needs: No Meds Allergies Allergy/AdvReac Type Severity Reaction Status Date / Time No Known Allergies Allergy Verified 06/14/24 14:23 Exam Airway Mallampati Class: II TM Dist: >3cm Neck ROM: Full Loose/Missing/Broken Teeth: No Heart: ok. see above. Lungs: ok Assessment and Plan Assessment Anesthesia Assessment: Anesthesia Plan Discussed Final Anesthetic Review History of Problems with Anesthesia: Yes (severe anxiety ) NPO: Yes ASA Class: III Final Preanesthetic Review: No Changes in Pt Med Stat, Meds/Allgs Chart Reviewed, Consent Obtained/Reviewed and Anes Risks/Benef Reviewed Patient Risk: Intermediate Procedure Risk: Low Anesthetic Plan Anesthetic Plan: GA and Agree w/ Assess. and Plan Disposition: Standard PACU
[2024-06-14 14:13] VITALS: BMI 44.3
[2024-06-14 14:29] VITALS: BP 160/83; PULSE 60; RESP 18; TEMP 36.5; O2SAT 94
[2024-06-14] MEDS: Lactated Ringers 1,000 ML 100 ML IVCONT (14:40)
--- NOTE | 2024-06-14 15:29 | MHC.SHP ---
Pre-Procedural Eval Section A - 24 Hr Update-Section A only Date of Service: 06/14/24 The patient is an INPATIENT: No Changes since office visit: No Cold of Flu in the past 2 weeks, No New Medical Problems, No Changes in Medication and No Patient answered all questions The patient has been examined within 24 hours of the surgical procedure. The History & Physical has been completed within 30 days and I have reviewed it.: Yes Section B - Complete if H&P > 30 days Chief Complaint: Anogenital (venereal) warts Details of Present Illness: Penile w Relevant Social History: None Present Medications: see Short Stay Collaborative assessment Medical History: No relevant PMH History of Previous Operations: No relevant previous surgery Allergies: Allergies Allergy/AdvReac Type Severity Reaction Status Date / Time No Known Allergies Allergy Verified 06/14/24 14:23 Review of Systems Sugical H&P ROS: Negative: Constitution, Cardiovascular, Respiratory, Neurological, Psychiatric, Hem-Onc, Allergic/Immunologic, Gastrointestinal, Genitourinary, Musculoskeletal, Integumentary, Endocrine and Eyes/Ears/Nose/Throat Exam Surgical H&P Exam: Normal: HEENT, Normal: Heart, Normal: Lungs, Normal: Extremities, Normal: Abdomen, Normal: Skin and Normal: Neurological Plan Diagnosis/Plan: Unchanged (CO2 laser of penile warts) I have reviewed the history and physical and performed a pertinent physical examination on my patient. No changes have occurred unless specified. Time Spent With Patient Time: Total time managing care of this patient today ____ minutes.
--- NOTE | 2024-06-14 16:28 | W.PM.OPN ---
Operative Note Operative Note Date of Service: 06/14/24 Narrative: PreOperative Diagnosis: Penile condyloma Post Operative Diagnosis: Penile condyloma Procedure: CO2 laser penile condyloma Surgeon: Dr Ketan Talavera Anesthesia: Sedation Indications for procedure: Three lesions on penis Procedure: After informed consent was verified the patient was brought to the operating room and placed in a supine position. Anesthesia was administered per protocol. The patient was prepped and draped in a sterile fashion. Safety pause time-out was performed. Antibiotics being given. CO2 laser. Power setting 4.0 w. Small <5mm lesion on right penile shaft removed Small <5mm lesion on penile sulcus ventral position removed 1cm lesion on base left penile shaft removed Bacitracin placed Procedure tolerated well. Patient transferred in stable condition to recovery area. Pathology: Lesion Drains: []
[2024-06-14 16:37] VITALS: BP 115/63; PULSE 59; RESP 18; TEMP 36.4; O2SAT 90
[2024-06-14 16:40] VITALS: BP 107/54; PULSE 60; RESP 18; O2SAT 93
[2024-06-14 16:45] VITALS: BP 118/61; PULSE 60; RESP 16; O2SAT 94
[2024-06-14 16:50] VITALS: BP 121/65; PULSE 60; RESP 16; O2SAT 94
[2024-06-14 16:56] VITALS: BP 131/63; PULSE 58; RESP 16; TEMP 36.4; O2SAT 96
== END 2024-06-14 17:07 | disposition home or self-care (01) ==
PROVIDERS: PCP Nurse Practitioner Family; Visit Provider Urology
PROC: (CPT 54057; principal; 2024-06-14 15:00)
DX: A63.0 Anogenital (venereal) warts (principal); N48.9 Disorder of penis, unspecified; I25.10 Atherosclerotic heart disease of native coronary artery without angina pectoris; Z95.5 Presence of coronary angioplasty implant and graft; I10 Essential (primary) hypertension; E78.5 Hyperlipidemia, unspecified; H81.09 Meniere's disease, unspecified ear; G47.33 Obstructive sleep apnea (adult) (pediatric); E66.9 Obesity, unspecified; Z79.82 Long term (current) use of aspirin; Z79.899 Other long term (current) drug therapy; F17.210 Nicotine dependence, cigarettes, uncomplicated
CPT/HCPCS: 54057; 88304; 88305; 88342; 88360; J0690; J2250; J2704; J2795; J3010

== ENCOUNTER → 2024-06-14 13:24 | Outpatient (BNV) | payer OTHER, SELFPAY | PROVIDERS: PCP Nurse Practitioner Family; Visit Provider Urology | DX: A63.0 Anogenital (venereal) warts (principal) | CPT/HCPCS: 54057 ==

== ENCOUNTER 2024-06-15 10:26 | Outpatient (AMB) | payer OTHER, SELFPAY ==
--- NOTE | 2024-06-15 11:05 | A.OFFPC_ITS ---
Vital Signs 06/15/24 11:06 Height 5 ft 11 in Weight 324 lb BMI 45.2 BP 140/90 H Blood Pressure Location Lt brachial Position Sitting Pulse 67 Pulse Source Pulse Oximeter Pulse Oximetry (%) 98 Oxygen Delivery Method Room Air Intake Visit Reasons: follow-up Intake Note: Patient here to follow up after having biopsy and had some BP issues. Pt needs refill on flonase Allergies versed Adverse Reaction (Intermediate, Uncoded 06/15/24 11:49) Agitated Medication List - Last Reconciled 06/15/24 by LEIGH Leong amlodipine 10 mg PO DAILY aspirin 81 mg PO DAILY atorvastatin 80 mg PO DAILY cetirizine (Zyrtec) 10 mg PO DAILY PRN cholecalciferol (vitamin D3) 50 mcg PO DAILY 90 days fluticasone propionate 50 mcg/actuation 1 spray intranasal Q12H PRN lorazepam 0.5 mg PO DAILY PRN metoprolol succinate ER 200 mg (2 x 100 mg) PO DAILY 90 days montelukast 10 mg PO BEDTIME 90 days nitroglycerin 0.4 mg sublingual Q5M PRN Tobacco use date assessed: 03/16/24 Dental Screening Dental Screen Date: 03/16/24 HPI follow-up HPI Details Fatigue: Patient reports still being fatigued and a regular basis. He denies any falling asleep at the wheel or falling asleep regularly during the day, but does describe fatigue. Labs did show a positive MONI, I referred him to Rheumatology. Patient did have a sleep study in the past and he was noted to have obstructive sleep apnea, but was unable to tolerate any of the masks that were supplied. I explained that any point I will gladly refer him back to Sleep Medicine though I do not think there are many new options to treat his CAROLYN. Pt also smokes, and clearly knows the dangers associated with this habit. [facility] Medical History CAD (coronary artery disease) Smoker Meniere disease Diverticulosis Panic attack Somnolence Cholelithiasis Dyslipidemia Morbid obesity CAROLYN (obstructive sleep apnea) Essential hypertension Atherosclerotic cardiovascular disease Surgical History Hx of colonoscopy S/P cholecystectomy History of arthroscopy of left knee History of heart artery stent History of tonsillectomy History of cardiac catheterization (~08/2018) Family History Father Hypertension Coronary artery disease Kidney failure Mother No problems noted. Maternal Grandfather Coronary artery disease History of heart attack Brother Crohn's disease Sister No problems noted. Sister No problems noted. Sister No problems noted. Social History Household Members: Spouse Housing: House Alcohol intake: current Alcohol intake frequency: holidays/special occasions only Patient Tobacco Use Status: Current everyday Tobacco user Tobacco use type: Cigarette Cigarette Packs Per Day: 1 Cigarettes Per Day: 20.0 Years Smoked: 30 e-Cigarette/Vaping Use: Never Used Second Hand Smoke Exposure: No service: No Current occupational status: employed Cognitive needs: No Hearing needs: No Vision needs: No Questionnaire Thrive Questionnaire Date Thrive assessed: 12/16/22 CHARLES-7 AMB Questionnaire CHARLES-7 Date CHARLES - 7 assessed: 12/16/22 Source: Developed by Drs. Robin Tate, Maryann Koehler, Dov Orbien and colleagues, with an educational erika from [email or web address]. Physical exam (Primary Care) Vital Signs: Last Vital Signs Pulse 67 06/15/24 11:06 BP 140/90 H 06/15/24 11:06 Pulse Ox 98 06/15/24 11:06 Oxygen Delivery Method Room Air 06/15/24 11:06 BMI result Body Mass Index 45.2 Tobacco/Smoking Status: Tobacco use Status Tobacco use date assessed 03/16/24 06/15/24 11:06 Patient Tobacco Use Status Current everyday Tobacco 06/15/24 11:06 Tobacco use type Cigarette 06/15/24 11:06 e-Cigarette/Vaping Use Never Used 06/15/24 11:06 Thrive Assessment: Date of Thrive Assessment Date Thrive assessed 12/16/22 06/15/24 11:06 Const General: cooperative, healthy appearing, comfortable, no acute distress and well developed Nutritional Appearance: obese Resp Effort & Inspection: normal respiratory effort Auscultation: clear to auscultation bilaterally Cardio Rate: regular rate Rhythm: regular rhythm Heart sounds: S1 normal heart sound present and S2 normal heart sound present Assessment and Plan Assessment & Plan (1) Fatigue: Code(s): R53.83 - Other fatigue Plan: follow up with rheumatology. encouraged weight loss and quitting smoking Medications: Refilled fluticasone propionate 50 mcg/actuation administer into each nostril 1 spray intranasal Q12H PRN 16 grams 5RF nasal congestion Coding Level of Care Code Est Pt Level 3 (92072) Diagnoses Fatigue R53.83
[2024-06-15 11:06] VITALS: BP 140/90; PULSE 67; O2SAT 98; BMI 45.2
== END 2024-06-15 13:05 | disposition home or self-care (01) ==
LOC: HO.HMGC 10:27
PROVIDERS: PCP Nurse Practitioner Family; Visit Provider Nurse Practitioner Family
DX: R53.83 Other fatigue (principal)
CPT/HCPCS: 99213

== ENCOUNTER 2024-07-09 12:49 | Outpatient (AMB) | payer OTHER, SELFPAY ==
--- NOTE | 2024-07-09 12:51 | MHC.OFFWIV ---
Intake Vital Signs 07/09/24 12:53 Height 5 ft 11 in Weight 325 lb BMI 45.3 BP 118/76 Blood Pressure Location Rt radial Position Sitting Pulse 67 Pulse Source Pulse Oximeter Temp 98.5 F Temp Source Oral Pulse Oximetry (%) 98 Oxygen Delivery Method Room Air Intake Visit Reasons: EP Cut on forearm Intake Note: pt c/o cut on forearm. Caught with router. Happened about 12:15 Patient Tobacco Use Status: Current everyday Tobacco user Allergies versed Adverse Reaction (Intermediate, Uncoded 07/09/24 12:51) Agitated Do you need a note to return to daycare/school/sports/work: No HPI HPI Comments History of Present Illness Details Patient is a 49-year-old male who was drilling with a wrote her bit just prior to arrival and accidentally drilled into his left forearm. No Tdap documented PFSH Medical History CAD (coronary artery disease) Smoker Meniere disease Diverticulosis Panic attack Somnolence Cholelithiasis Dyslipidemia Morbid obesity CAROLYN (obstructive sleep apnea) Essential hypertension Atherosclerotic cardiovascular disease Surgical History Hx of colonoscopy S/P cholecystectomy History of arthroscopy of left knee History of heart artery stent History of tonsillectomy History of cardiac catheterization (~08/2018) Family History Father Hypertension Coronary artery disease Kidney failure Mother No problems noted. Maternal Grandfather Coronary artery disease History of heart attack Brother Crohn's disease Sister No problems noted. Sister No problems noted. Sister No problems noted. Social History Household Members: Spouse Housing: House Alcohol intake: current Alcohol intake frequency: holidays/special occasions only Patient Tobacco Use Status: Current everyday Tobacco user Tobacco use type: Cigarette Cigarette Packs Per Day: 1 Cigarettes Per Day: 20.0 Years Smoked: 30 e-Cigarette/Vaping Use: Never Used Second Hand Smoke Exposure: No service: No Current occupational status: employed Cognitive needs: No Hearing needs: No Vision needs: No Review of Systems Const All systems reviewed & are unremarkable except as noted in HPI and below Physical Exam Vital Signs: Last Vital Signs Temp 98.5 F 07/09/24 12:53 Pulse 67 07/09/24 12:53 BP 118/76 07/09/24 12:53 Pulse Ox 98 07/09/24 12:53 Oxygen Delivery Method Room Air 07/09/24 12:53 BMI result Body Mass Index 45.3 Const General: cooperative, healthy appearing, comfortable, no acute distress and well developed Orientation/consciousness: patient oriented x3 Limitations: no limitations Skin Other: Left forearm radial side, 5 cm laceration, stellate in nature, no apparent injury to deeper layer. 5/5 strength of wrist, hand and fingers, full ROM of wrist hand and fingers, NVI wrist hand and fingers Neuro General: patient oriented x3 Office Procedures Laceration Repair Laceration repair performed by: Rose Boss Explained risks and benefits to parent: Yes Informed consent given: Yes Consent signed: No Location: left forearm Length: 5cm Sedation: No Anesthesia: 1% lidocaine Irrigation: saline Preparation: betadine Wound exploration: none Deep closure: No Skin closure: nylon (5 sutures of 4.0 nylon) Topical treatment: triple antibiotic Tetanus toxoid ordered: Yes Patient tolerated procedure: well Complications: No [id number] Repair 2.6-7.5cm Procedure code (CPT) selection complete Assessment & Plan Assessment & Plan (1) Laceration of arm, left, complicated: Code(s): S41.112A - Laceration without foreign body of left upper arm, initial encounter Qualifiers: Encounter type: initial encounter Qualified Code(s): S41.112A - Laceration without foreign body of left upper arm, initial encounter Plan: Recommended patient come back in 7-10 days for removal of sutures, gave red flag warning signs on infection. Wound is clean dry and intact, recommended he keep it covered if he goes out in public and apply Aquaphor starting in 3 days. Plan See above Orders: Orders TDaP Immunization Today Z23 - Encounter for immunization Medications: New Boostrix Tdap (diphth,pertus(acell),tetanus) 0.5 mL IM ONCE 0.5 mL 0RF NS Z23 - Encounter for immunization Coding Level of Care Code Est Pt Level 4 (83574) Diagnoses Laceration of left upper extremity with complication, initial encounter S41.112A Encounter type: initial encounter
[2024-07-09 12:53] VITALS: BP 118/76; PULSE 67; TEMP 36.9; O2SAT 98; BMI 45.3
== END 2024-07-09 14:19 | disposition home or self-care (01) ==
PROVIDERS: PCP Nurse Practitioner Family; Visit Provider Physician Assistant
DX: S41.112A Laceration without foreign body of left upper arm, initial encounter (principal); Z23 Encounter for immunization
CPT/HCPCS: 90471; 90715; 99214

== ENCOUNTER 2024-07-13 15:21 | Outpatient (AMB) | payer OTHER, SELFPAY ==
--- NOTE | 2024-07-13 15:39 | A.OFFVIS_ITS ---
Intake Visit Reasons: Genital Warts biopsy results Intake Note: Patient presents to the office today for a follow up for genital warts biopsy results Urology Medications: none Allergies to Antibiotic: none Blood Thinner: aspirin Wall To Wall Carpet Installer Required: No Accompanied by: Self / Same As Patient Allergies versed Adverse Reaction (Intermediate, Uncoded 08/20/24 14:59) Agitated HPI Comments Details: Kin is a pleasant male. He is a patient of Dr. Simpson. He is seen for the following urologic conditions - penile discoloration Known penile melanosis Discoloration has been present for some time Has 2 small penile w Previous evaluation for microscopic hematuria Current stable voiding Plan six-month follow-up [facility] Medical History CAD (coronary artery disease) Smoker Meniere disease Diverticulosis Panic attack Somnolence Cholelithiasis Dyslipidemia Morbid obesity CAROLYN (obstructive sleep apnea) Essential hypertension Atherosclerotic cardiovascular disease Surgical History Hx of colonoscopy S/P cholecystectomy History of arthroscopy of left knee History of heart artery stent History of tonsillectomy History of cardiac catheterization (~08/2018) Family History Father Hypertension Coronary artery disease Kidney failure Mother No problems noted. Maternal Grandfather Coronary artery disease History of heart attack Brother Crohn's disease Sister No problems noted. Sister No problems noted. Sister No problems noted. 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 Cognitive needs: No Hearing needs: No Vision needs: No Review of Systems Const Denies chills and Denies fever(s) Card Reports no additional complaints and Denies syncope Resp Denies cough GI Denies abdominal pain and Denies heartburn Reports as per HPI and Denies change in libido Neuro Denies syncope Psych Denies change in libido Endo Denies change in libido Physical Exam Const General: cooperative, healthy appearing, comfortable and no acute distress Orientation/consciousness: patient oriented x3 HEENT Face and sinus: Yes normal facial exam Mouth: moist mucous membranes Neck Neck: Yes normal visual inspection, Yes full ROM and Yes trachea midline Chest Chest palpation & inspection: normal inspection of the chest Resp Effort & Inspection: normal respiratory effort, able to speak in complete sentences and no respiratory distress GI Inspection: Yes normal to inspection Back/Spine/Pelvis Cervical Spine: normal cervical lordosis Thoracic/Lumbar Spine: thoracic and lumbar spine normal to inspection Skin General skin exam: no rashes or lesions noted Neuro General: patient oriented x3, gait normal, tone normal and moves all extremities Extrem General: Yes normal to inspection and Yes capillary refill normal Assessment & Plan Assessment & Plan (1) Penile lesion: Code(s): N48.9 - Disorder of penis, unspecified Category: Medical Plan Six-month follow-up office Patient Instructions: Imaging studies, laboratory and physical exam results were discussed and reviewed in detail. No major barriers to patient understanding were identified. An opportunity to ask questions regarding the treatment plan was provided. All questions were answered. The patient expressed understanding and agreement with the above treatment plan. The patient is aware they should contact our office by phone for worsening of their current condition or the appearance of new urologic symptoms. Compliance is encouraged with any medications and followup testing that is ordered. It is a privilege to participate in the urologic care of your patient. If you have any questions or concerns regarding treatment for the above conditions, or other urologic issues, please do not hesitate to contact me. The office telephone contact is [phone]. This note is constructed using voice recognition software. While every effort has been made to ensure accuracy center aisle cashier errors may have been included. Yours sincerely, Dr Ketan Talavera MD, [facility] - U[facility] Providers of Expert, Compassionate Care for the Genitourinary System Coding Level of Care Code Est Pt Level 3 (95640) Diagnoses Penile lesion N48.9
== END 2024-07-13 16:20 | disposition home or self-care (01) ==
PROVIDERS: PCP Nurse Practitioner Family; Visit Provider Urology
DX: N48.9 Disorder of penis, unspecified (principal)
CPT/HCPCS: 99213

== ENCOUNTER → 2024-07-13 15:21 | Outpatient (BNVA) | payer OTHER, SELFPAY | PROVIDERS: PCP Nurse Practitioner Family; Visit Provider Urology | DX: N48.89 Other specified disorders of penis (principal); Z71.2 Person consulting for explanation of examination or test findings | CPT/HCPCS: 99212 ==

== ENCOUNTER 2024-07-23 10:35 | Outpatient (AMB) | payer OTHER, SELFPAY ==
--- NOTE | 2024-07-23 10:37 | AM.OFFWIN_ITS ---
Intake Vital Signs 07/23/24 10:44 Height 5 ft 11 in Weight 325 lb BMI 45.3 BP 132/88 Blood Pressure Location Rt radial Position Sitting Pulse 58 Pulse Source Pulse Oximeter Temp 98.4 F Temp Source Oral Pulse Oximetry (%) 98 Oxygen Delivery Method Room Air Intake Visit Reasons: EP- Stitches removal Intake Note: pt here for suture removal Patient Tobacco Use Status: Current everyday Tobacco user Allergies versed Adverse Reaction (Intermediate, Uncoded 07/23/24 10:43) Agitated Do you need a note to return to daycare/school/sports/work: No HPI HPI Comments History of Present Illness Details Patient is a 49-year-old male here for removal of 5 stitches that were placed 14 days ago on his left forearm. He states he was supposed to come back in 10 days but he waited until they itched because the last time, that is when he knew they needed to be removed. He denies any abnormal discharge from the wound, any pain from the wound and states he has been keeping it clean and dry and using Aquaphor twice daily. [facility] Medical History CAD (coronary artery disease) Smoker Meniere disease Diverticulosis Panic attack Somnolence Cholelithiasis Dyslipidemia Morbid obesity CAROLYN (obstructive sleep apnea) Essential hypertension Atherosclerotic cardiovascular disease Surgical History Hx of colonoscopy S/P cholecystectomy History of arthroscopy of left knee History of heart artery stent History of tonsillectomy History of cardiac catheterization (~08/2018) Family History Father Hypertension Coronary artery disease Kidney failure Mother No problems noted. Maternal Grandfather Coronary artery disease History of heart attack Brother Crohn's disease Sister No problems noted. Sister No problems noted. Sister No problems noted. Social History Household Members: Spouse Housing: House Alcohol intake: current Alcohol intake frequency: holidays/special occasions only Patient Tobacco Use Status: Current everyday Tobacco user Tobacco use type: Cigarette Cigarette Packs Per Day: 1 Cigarettes Per Day: 20.0 Years Smoked: 30 e-Cigarette/Vaping Use: Never Used Second Hand Smoke Exposure: No service: No Current occupational status: employed Cognitive needs: No Hearing needs: No Vision needs: No Review of Systems Const All systems reviewed & are unremarkable except as noted in HPI and below Physical Exam Vital Signs: Last Vital Signs Temp 98.4 F 07/23/24 10:44 Pulse 58 07/23/24 10:44 BP 132/88 07/23/24 10:44 Pulse Ox 98 07/23/24 10:44 Oxygen Delivery Method Room Air 07/23/24 10:44 BMI result Body Mass Index 45.3 Const General: cooperative, healthy appearing, comfortable, no acute distress and well developed Orientation/consciousness: patient oriented x3 Limitations: no limitations HEENT Head: Yes normal to inspection Ears: hearing grossly normal bilaterally General nose exam: Normal external nose present Face and sinus: Yes normal facial exam Eyes General: appearance normal, both eyes and all related structures Neck Neck: Yes normal visual inspection and Yes full ROM Resp Effort & Inspection: normal respiratory effort and able to speak in complete sentences Skin Other: Removed 5 sutures from clean dry and intact wound on left forearm. General skin exam: no rashes or lesions noted Neuro General: patient oriented x3 Extrem General: Yes normal to inspection Assessment & Plan Assessment & Plan (1) Encounter for removal of sutures: Code(s): Z48.02 - Encounter for removal of sutures Plan: Recommended he continue to use Aquaphor twice daily. Plan See above Coding Level of Care Code Est Pt Level 2 (42640) Diagnoses Encounter for removal of sutures Z48.02
[2024-07-23 10:44] VITALS: BP 132/88; PULSE 58; TEMP 36.9; O2SAT 98; BMI 45.3
== END 2024-07-23 11:03 | disposition home or self-care (01) ==
PROVIDERS: PCP Nurse Practitioner Family; Visit Provider Physician Assistant
DX: Z48.02 Encounter for removal of sutures (principal)
CPT/HCPCS: 15853; 99212

== ENCOUNTER 2024-08-03 10:33 | Outpatient (AMB) | payer OTHER, SELFPAY ==
[2024-08-03 11:19] VITALS: BP 122/84; PULSE 58; TEMP 36.8; O2SAT 98; BMI 44.9
--- NOTE | 2024-08-03 11:19 | AM.OFFWIN_ITS ---
Intake Vital Signs 08/03/24 11:19 Height 5 ft 11 in Weight 322 lb BMI 44.9 BP 122/84 Blood Pressure Location Lt brachial Position Sitting Pulse 58 Pulse Source Pulse Oximeter Temp 98.3 F Temp Source Oral Pulse Oximetry (%) 98 Oxygen Delivery Method Room Air Intake Visit Reasons: EP sore throat Intake Note: pt c/o sore throat. Started last Friday Patient Tobacco Use Status: Current everyday Tobacco user Allergies versed Adverse Reaction (Intermediate, Uncoded 08/03/24 11:19) Agitated Do you need a note to return to daycare/school/sports/work: No HPI HPI Comments History of Present Illness Details Patient is a 49-year-old male complaining of right-sided throat pain x1 week. He states that it feels like someone's pinching the right side of the back of his throat. He says he did have a little bit of a cough but it has gone away. He denies any sinus pain, hearing changes, fever or shortness of breath. Patient states he takes Zyrtec and Flonase every day. He states he is prone to ear infections and has a long history of strep pharyngitis as a child and had his tonsils removed. [facility] Medical History CAD (coronary artery disease) Smoker Meniere disease Diverticulosis Panic attack Somnolence Cholelithiasis Dyslipidemia Morbid obesity CAROLYN (obstructive sleep apnea) Essential hypertension Atherosclerotic cardiovascular disease Surgical History Hx of colonoscopy S/P cholecystectomy History of arthroscopy of left knee History of heart artery stent History of tonsillectomy History of cardiac catheterization (~08/2018) Family History Father Hypertension Coronary artery disease Kidney failure Mother No problems noted. Maternal Grandfather Coronary artery disease History of heart attack Brother Crohn's disease Sister No problems noted. Sister No problems noted. Sister No problems noted. Social History Household Members: Spouse Housing: House Alcohol intake: current Alcohol intake frequency: holidays/special occasions only Patient Tobacco Use Status: Current everyday Tobacco user Tobacco use type: Cigarette Cigarette Packs Per Day: 1 Cigarettes Per Day: 20.0 Years Smoked: 30 e-Cigarette/Vaping Use: Never Used Second Hand Smoke Exposure: No service: No Current occupational status: employed Cognitive needs: No Hearing needs: No Vision needs: No Review of Systems Const All systems reviewed & are unremarkable except as noted in HPI and below Physical Exam Vital Signs: Last Vital Signs Temp 98.3 F 08/03/24 11:19 Pulse 58 08/03/24 11:19 BP 122/84 08/03/24 11:19 Pulse Ox 98 08/03/24 11:19 Oxygen Delivery Method Room Air 08/03/24 11:19 BMI result Body Mass Index 44.9 Const General: cooperative, healthy appearing, comfortable and no acute distress Orientation/consciousness: patient oriented x3 Limitations: no limitations HEENT Head: Yes normal to inspection Ears: hearing grossly normal bilaterally, external ears normal and TM's normal b ilaterally General nose exam: Normal external nose present, Normal nares present and No nasal discharge present Face and sinus: Yes normal facial exam and Yes sinuses nontender Mouth: Normal oral and palatal mucosa present and moist mucous membranes Throat: Yes uvula midline and Yes posterior oropharynx abnormal (Erythema) Eyes General: appearance normal, both eyes and all related structures Neck Neck: Yes normal visual inspection Resp Effort & Inspection: normal respiratory effort, able to speak in complete sentences, no respiratory distress, not tachypneic, no tripod positioning and no use of accessory muscles Skin General skin exam: no rashes or lesions noted Neuro General: patient oriented x3 Extrem General: Yes normal to inspection and Yes no clubbing, cyanosis or edema Results AMB Rapid Strep AMB Rapid Strep Negative Last Edit by TELLO Miranda on 08/03/24 11:40 Assessment & Plan Assessment & Plan (1) Pharyngitis: Code(s): J02.9 - Acute pharyngitis, unspecified Qualifiers: Pharyngitis/tonsillitis etiology: unspecified etiology Qualified Code(s): J02.9 - Acute pharyngitis, unspecified Plan: Rapid strep negative in office, physical exam only remarkable for erythema in the posterior oropharynx. Likely viral, did send COVID flu and RSV. Recommended supportive care and if it continues, he should follow up with ENT or his PCP, he is a smoker. Plan See above Orders: Orders SARS-CoV2/FLU/RSV Today R09.89 - Other specified symptoms and signs involving the circulatory and respiratory systems AMB Rapid Strep Screen Today Z13.9 - Encounter for screening, unspecified Coding Level of Care Code Est Pt Level 3 (57698) Diagnoses Pharyngitis, unspecified etiology J02.9 Pharyngitis/tonsillitis etiology: unspecified etiology
== END 2024-08-03 12:12 | disposition home or self-care (01) ==
PROVIDERS: PCP Nurse Practitioner Family; Visit Provider Physician Assistant
DX: J02.9 Acute pharyngitis, unspecified (principal)
CPT/HCPCS: 87880; 99213

== ENCOUNTER 2024-08-03 11:38 | Outpatient (REF) | payer OTHER, SELFPAY ==
[2024-08-03 14:33] LABS: Influenza A PCR NEGATIVE (Negative); Influenza B PCR NEGATIVE (Negative); Resp Syncy Virus RNA Qual PCR NEGATIVE (Negative); SARS COV2 PCR INHOUSE NEGATIVE (Negative)
== END 2024-08-03 11:39 | disposition home or self-care (01) ==
LOC: HO.LAB 11:38
PROVIDERS: Visit Provider Physician Assistant
DX: R09.89 Other specified symptoms and signs involving the circulatory and respiratory systems (principal)
CPT/HCPCS: 0241U

== ENCOUNTER 2024-08-20 14:43 | Outpatient (AMB) | payer OTHER, SELFPAY ==
[2024-08-20 14:56] VITALS: BP 120/78; PULSE 61; O2SAT 96; BMI 44.6
--- NOTE | 2024-08-20 14:56 | MHC.OFFVIS ---
Vital Signs 08/20/24 14:56 Height 5 ft 11 in Weight 319 lb 10.724 oz BMI 44.6 BP 120/78 Blood Pressure Location Lt brachial Position Sitting Pulse 61 Pulse Source Pulse Oximeter Pulse Oximetry (%) 96 Oxygen Delivery Method Room Air Intake Visit Reasons: abnormal Lab Intake Note: Patient presents as a new patient referred internally by Micky Palacios NP, for result of +MONI. Allergies versed Adverse Reaction (Intermediate, Uncoded 08/20/24 14:59) Agitated Medication List - Last Reconciled 08/20/24 by Sabi Hoyt MD amlodipine 10 mg PO DAILY aspirin 81 mg PO DAILY atorvastatin 80 mg PO DAILY cetirizine (Zyrtec) 10 mg PO DAILY PRN cholecalciferol (vitamin D3) 50 mcg PO DAILY 90 days fluticasone propionate 50 mcg/actuation 1 spray intranasal Q12H PRN lorazepam 0.5 mg PO DAILY PRN metoprolol succinate ER 200 mg (2 x 100 mg) PO DAILY 90 days montelukast 10 mg PO BEDTIME 90 days nitroglycerin 0.4 mg sublingual Q5M PRN HPI Comments Details: This is a 49-year-old male who presents for evaluation of a positive MONI 1-40 in the context of fatigue. Patient states that he has minimal right elbow pain. Gets worse with lifting and doing certain activities. He denies any skin rashes. Unintentional weight loss, fevers, denies any swollen joints. He is on aspirin due to history of CAD s/p stenting. He is not on anticoagulation. Denies any history of DVT/PE. He is unaware of any family history of an autoimmune rheumatic disease. He has known sleep apnea. It has been difficult to treat as patient tried and failed numerous masks. He also states that he does not qualify for the surgery [facility] Medical History CAD (coronary artery disease) Smoker Meniere disease Diverticulosis Panic attack Somnolence Cholelithiasis Dyslipidemia Morbid obesity CAROLYN (obstructive sleep apnea) Essential hypertension Atherosclerotic cardiovascular disease Surgical History Hx of colonoscopy S/P cholecystectomy History of arthroscopy of left knee History of heart artery stent History of tonsillectomy History of cardiac catheterization (~08/2018) Family History Father Hypertension Coronary artery disease Kidney failure Mother No problems noted. Maternal Grandfather Coronary artery disease History of heart attack Brother Crohn's disease Sister No problems noted. Sister No problems noted. Sister No problems noted. 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 Cognitive needs: No Hearing needs: No Vision needs: No Review of Systems Const Reports fatigue, Denies fever(s) and Denies weight loss ENT Details: Denies frequent canker sores Musc Reports arthralgias, Denies joint swelling and Denies stiffness Skin/Breast Denies rash Endo Reports fatigue Physical Exam Vital Signs: Last Vital Signs Pulse 61 08/20/24 14:56 BP 120/78 08/20/24 14:56 Pulse Ox 96 08/20/24 14:56 Oxygen Delivery Method Room Air 08/20/24 14:56 BMI result Body Mass Index 44.6 Const General: cooperative, healthy appearing and comfortable Nutritional Appearance: obese morbidly obese Orientation/consciousness: patient oriented x3 Limitations: no limitations HEENT Head: Yes normocephalic and Yes atraumatic Mouth: oropharynx normal Resp Effort & Inspection: normal respiratory effort and able to speak in complete sentences Auscultation: clear to auscultation bilaterally Cardio Rate: regular rate Rhythm: regular rhythm Skin General skin exam: no rashes or lesions noted Neuro General: patient oriented x3 Extrem Other: No active synovitis Normal nailfold capillaroscopy Normal range of motion of hands, wrists, elbows and shoulders without pain Tenderness at the common extensor origin at the right lateral epicondyle With positive resisted wrist extension test Assessment & Plan Assessment & Plan (1) Positive MONI (antinuclear antibody): Code(s): R76.8 - Other specified abnormal immunological findings in serum Category: Medical Plan: This is a 49-year-old male who presents for evaluation of a positive MONI 1-40 in the setting of generalized fatigue. Upon evaluation I do not see any evidence of an autoimmune rheumatic disease. Discussed with patient that about 20% of the population can have a positive MONI without an underlying autoimmune rheumatic disease. Significance of his positive MONI is unclear (2) Right tennis elbow: Code(s): M77.11 - Lateral epicondylitis, right elbow Category: Medical Plan: I provided patient with a printout of home exercise Plan I spent 30 minutes reviewing patient's chart, evaluating patient, counseling patient and documenting in the chart Coding Level of Care Code New Pt Level 3 (91687) Diagnoses Positive MONI (antinuclear antibody) R76.8 Right tennis elbow M77.11
== END 2024-08-20 16:08 | disposition home or self-care (01) ==
PROVIDERS: PCP Nurse Practitioner Family; Visit Provider Student in an Organized Health Care Education/Training Program
DX: R76.8 Other specified abnormal immunological findings in serum (principal); M77.11 Lateral epicondylitis, right elbow
CPT/HCPCS: 99203

== ENCOUNTER → 2024-08-20 14:43 | Outpatient (BNVA) | payer OTHER, SELFPAY | PROVIDERS: PCP Nurse Practitioner Family; Visit Provider Student in an Organized Health Care Education/Training Program | DX: M77.11 Lateral epicondylitis, right elbow (principal); R76.8 Other specified abnormal immunological findings in serum | CPT/HCPCS: 99202 ==

== ENCOUNTER 2024-10-20 09:01 | Outpatient (AMB) | payer OTHER, SELFPAY ==
--- NOTE | 2024-10-20 09:18 | MHC.PC.OV ---
Vital Signs 10/20/24 09:19 Height 5 ft 11 in Weight 326 lb BMI 45.5 BP 136/80 Blood Pressure Location Rt brachial Position Sitting Pulse 68 Pulse Source Pulse Oximeter Pulse Oximetry (%) 98 Intake Visit Reasons: ANNUAL PE Intake Note: pt is here for annual exam Allergies versed Adverse Reaction (Intermediate, Uncoded 10/20/24 12:07) Agitated Medication List - Last Reconciled 10/20/24 by LEIGH Leong amlodipine 10 mg PO DAILY aspirin 81 mg PO DAILY atorvastatin 80 mg PO DAILY cetirizine (Zyrtec) 10 mg PO DAILY PRN cholecalciferol (vitamin D3) 50 mcg PO DAILY 90 days fluticasone propionate 50 mcg/actuation 1 spray intranasal Q12H PRN lorazepam 0.5 mg PO DAILY PRN metoprolol succinate ER 200 mg (2 x 100 mg) PO DAILY 90 days montelukast 10 mg PO BEDTIME 90 days nitroglycerin 0.4 mg sublingual Q5M PRN Tobacco use date assessed: 03/16/24 Dental Screening Dental Screen Date: 03/16/24 HPI HPI Comments History of Present Illness Details Pt is here for a PE. colonoscopy is up to date. Pt reports he will start a exercise routine and diet this winter. pt does report fatigue, has sleep apnea, has been to sleep medicine, cannot stand any masks. Further recommended quitting smoking [facility] Medical History CAD (coronary artery disease) Smoker Meniere disease Diverticulosis Panic attack Somnolence Cholelithiasis Dyslipidemia Morbid obesity CAROLYN (obstructive sleep apnea) Essential hypertension Atherosclerotic cardiovascular disease Surgical History Hx of colonoscopy S/P cholecystectomy History of arthroscopy of left knee History of heart artery stent History of tonsillectomy History of cardiac catheterization (~08/2018) Family History Father Hypertension Coronary artery disease Kidney failure Mother No problems noted. Maternal Grandfather Coronary artery disease History of heart attack Brother Crohn's disease Sister No problems noted. Sister No problems noted. Sister No problems noted. 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 1. Little interest or pleasure in doing things: not at all 2. Feeling down, depressed, or hopeless: not at all 3. Trouble falling or staying asleep, or sleeping too much: not at all 4. Feeling tired or having little energy: not at all 5. Poor appetite or overeating: not at all 6. Feeling bad about yourself - or that you are a failure or have let yourself or your family down: not at all 7. Trouble concentrating on things, such as reading the newspaper or watching television: not at all 8. Moving or speaking so slowly that other people could have noticed. Or the opposite - being so fidgety or restless that you have been moving around a lot more than usual: not at all 9. Thoughts that you would be better off or of hurting yourself in some way: not at all Total score: 0 Depression Screening Interpretation: Negative Depression Screening Done: Yes 24224 - PHQ-9 Billing: Yes Source: Developed by Drs. Robin Tate, Maryann Koehler, Dov Obrien and colleagues, with an educational erika from [employer]. Thrive Questionnaire Date Thrive assessed: 10/20/24 I am a: Patient What is your living situation today?: I have a steady place to live Within the past 12 months, did the food you bought not last and you didn't have the money to get more?: Never true Within the past 12 months, did you worry whether your food would run out before you got money to buy more?: Never true Do you have trouble paying for medicines?: No Do you have trouble getting transportation to medical appointments?: No Do you have trouble paying your heating and electricity bill?: No Do you have trouble taking care of your child, family member or friend?: No Do you have trouble with day-to-day activities such as bathing, preparing meals, shopping, managing finances, etc.?: No Are you currently unemployed and looking for a job?: No Are you interested in more education?: No Please select the resources that you would like help with: None Currently or been in a relationship where the following occur: No concerns reported THRIVE Score: 0 AUDIT C Alcohol Use Questionnaire (AUDIT-C) 1. How often do you have a drink containing alcohol?: Never 3. How often do you have six or more drinks on one occasion?: Never Total Score: 0 Score Reviewed/Action Taken: Yes CHARLES-7 AMB Questionnaire CHARLES-7 Date CHARLES - 7 assessed: 10/20/24 Feeling nervous, anxious, or on edge: 0 = Not at all Not being able to stop or control worryin = Not at all Worrying too much about different things: 0 = Not at all Trouble relaxin = Not at all Being so restless that it is hard to sit still: 0 = Not at all Becoming easily annoyed or irritable: 0 = Not at all Feeling afraid as if something awful might happen: 0 = Not at all Total CHARLES-7 score (0-4 normal; 5-9 mild; 10-14 moderate; 15-21 severe): 0 Source: Developed by Drs. Robin Tate, Maryann Koehler, Dov Obrien and colleagues, with an educational erika from [employer]. CHARLES-7 Assessment Billing CHARLES-7 Assessment Tool: CHARLES-7 Assessment 04584 Review of Systems Const Denies chills and Denies fever(s) Eyes Denies blurry vision ENT Denies vertigo, Denies dizziness and Denies sore throat Card Denies chest pain at rest, Denies chest pain with activity, Denies diaphoresis, Denies dyspnea and Denies dyspnea on exertion Resp Denies cough, Denies dyspnea, Denies dyspnea on exertion and Denies wheezing GI Denies abdominal pain, Denies melena, Denies hematochezia, Denies constipation, Denies diarrhea and Denies loose stools Details: reports nocturia. Denies any incomplete bladder emptying. Denies hematuria Musc Denies numbness and Denies tingling Skin/Breast Denies lesions Neuro Denies vertigo, Denies dizziness, Denies numbness and Denies tingling Psych Denies anxiety, Denies depression, Denies homicidal ideation, Denies suicidal ideation and Denies other (substance abuse) Aller/Immun Denies wheezing Physical exam (Primary Care) Vital Signs: Last Vital Signs Pulse 68 10/20/24 09:19 BP 136/80 10/20/24 09:19 Pulse Ox 98 10/20/24 09:19 BMI result Body Mass Index 45.5 Tobacco/Smoking Status: Tobacco use Status Tobacco use date assessed 03/16/24 10/20/24 09:21 Patient Tobacco Use Status Current everyday Tobacco 10/20/24 09:21 Tobacco use type Cigarette 10/20/24 09:21 e-Cigarette/Vaping Use Never Used 10/20/24 09:21 PHQ-9: PHQ-9 Score PHQ-9: Total score 0 10/20/24 09:50 Depression Screening Interpretation: Negative Thrive Assessment: Date of Thrive Assessment Date Thrive assessed 10/20/24 10/20/24 09:21 Currently or been in a relationship where the following occur: No concerns reported Const General: cooperative Nutritional Appearance: well nourished and obese Orientation/consciousness: patient oriented x3 HENMT Head: Yes normal to inspection, Yes normocephalic and Yes atraumatic Ears: TM normal on the right and TM normal on the left Eyes General: appearance normal, both eyes and all related structures Alignment and Position: alignment normal and position normal Neck Neck: Yes normal visual inspection, Yes no lymphadenopathy and Yes supple Resp Effort & Inspection: normal respiratory effort Auscultation: clear to auscultation bilaterally Cardio Rate: regular rate Rhythm: regular rhythm Heart sounds: S1 normal heart sound present, S2 normal heart sound present and no murmurs GI Palpation (GI): Soft to palpation and nontender Auscultation: normal bowel sounds Other: prostate did feel enlarged, smooth central groove, no nodules noted Male General Exam: Yes normal external exam Penis: normal penis Scrotum: scrotum normal, testes descended bilaterally and no inguinal hernias Testes: no testicular mass Skin Rashes: no rashes Neuro General: patient oriented x3, moves all extremities, no focal motor deficits and deep tendon reflexes 2+ bilaterally Romberg Test: Negative Extrem Right lower extremity: no edema Left lower extremity: no edema Psych Affect: normal affect Attitude: cooperative Thought process: Normal thought process present Coding Level of Care Code Est Pt Prev Care 40-64y(74540) Diagnoses Smoking F17.200 Physical exam Z00.00 Enlarged prostate N40.0 Additional Codes CHARLES-7 Assessment Billing - CHARLES-7 Assessment Tool: CHARLES-7 Assessment 21222 ([id number]) PHQ-9 - 63657 - PHQ-9 Billing: Yes ([id number]) Assessment & Plan Assessment & Plan (1) Smoking: Code(s): F17.200 - Nicotine dependence, unspecified, uncomplicated Category: Social Hx Plan: quit smoking, multiple ideas encouraged pt to try (2) Physical exam: Code(s): Z00.00 - Encounter for general adult medical examination without abnormal findings Category: Medical (3) Enlarged prostate: Code(s): N40.0 - Benign prostatic hyperplasia without lower urinary tract symptoms Category: Medical Plan: referring to urology Plan as above Orders: Referrals Urology Referral N40.0 - Benign prostatic hyperplasia without lower urinary tract symptoms Medications: New amoxicillin-pot clavulanate 875-125 mg 1 tab PO BID 20 tabs 0RF 10 days
[2024-10-20 09:19] VITALS: BP 136/80; PULSE 68; O2SAT 98; BMI 45.5
== END 2024-10-20 10:36 | disposition home or self-care (01) ==
PROVIDERS: PCP Nurse Practitioner Family; Visit Provider Nurse Practitioner Family
DX: F17.200 Nicotine dependence, unspecified, uncomplicated (principal); Z00.00 Encounter for general adult medical examination without abnormal findings; N40.0 Benign prostatic hyperplasia without lower urinary tract symptoms

== ENCOUNTER → 2024-10-20 09:01 | Outpatient (BNVA) | payer OTHER, SELFPAY | PROVIDERS: PCP Nurse Practitioner Family; Visit Provider Nurse Practitioner Family | DX: Z00.00 Encounter for general adult medical examination without abnormal findings (principal); N40.0 Benign prostatic hyperplasia without lower urinary tract symptoms; F17.200 Nicotine dependence, unspecified, uncomplicated; Z71.6 Tobacco abuse counseling | CPT/HCPCS: 96127; 99396 ==

== ENCOUNTER 2024-11-22 08:01 | Outpatient (AMB) | payer OTHER, SELFPAY ==
--- NOTE | 2024-11-22 08:11 | MHC.OFFWIV ---
Intake Vital Signs 11/22/24 08:12 Weight 319 lb BP 132/80 Blood Pressure Location Lt brachial Position Sitting Pulse 74 Pulse Source Pulse Oximeter Temp 99.3 F Temp Source Oral Pulse Oximetry (%) 96 Oxygen Delivery Method Room Air Intake Visit Reasons: EP sinus infection? Intake Note: Patient here for sinus pressure,headache, difficulty sleeping that started over the weekend. Patient Tobacco Use Status: Current everyday Tobacco user Allergies versed Adverse Reaction (Intermediate, Uncoded 11/22/24 08:24) Agitated Do you need a note to return to daycare/school/sports/work: No HPI HPI Comments History of Present Illness Details History The patient is a 49-year-old male presenting with a headache and right ear discomfort. The patient reports feeling unwell with a headache radiating from the back of the head to the front, primarily on the right side. He describes the sensation in his right ear as fluctuating, with episodes deanna to static or rushing water sounds, alongside intermittent balance disturbances, suggesting fluid presence. The patient also experiences difficulty sleeping, having had less than an hour of sleep the previous night. There is a history of recurrent issues with the right ear, including frequent ear infections, although the current symptoms differ from past infections. The patient has experienced severe vertigo resulting in episodes of dizziness, laying on the floor, and vomiting, and has been prescribed lorazepam as needed for these episodes. Despite the current right ear discomfort, the patient reports an absence of typical infection symptoms such as fever, which was only minimally elevated at 99.3?F. The patient denies any recent cough but expresses a feeling of congestion, although attempts to clear it have been unsuccessful. He mentions not having taken any current medications aside from considering [id number] options like [place]. Physical Exam General: Cooperative, healthy appearing, comfortable and no acute distress Orientation/consciousness: Patient oriented x3 Limitations: No limitations Head: Normal to inspection Ears: Right EAC erythema, left EAC normal, bilateral TM's normal. Hearing grossly normal bilaterally Nose: Normal external nose present, Normal nares present and No nasal discharge present Face and sinus: Normal facial exam and Sinuses tender Mouth: Normal oral and palatal mucosa present and moist mucous membranes Throat: Yes tonsils normal, Yes uvula midline. Posterior oropharynx erythema Eyes: Appearance normal, both eyes and all related structures Neck: Normal visual inspection Respiratory: Normal respiratory effort, able to speak in complete sentences, No active coughing, no respiratory distress, not tachypneic, no tripod positioning and no use of accessory muscles Skin: No rashes or lesions noted Neuro: Patient oriented x3 Extremities: Normal to inspection and Yes no clubbing, cyanosis or edema PFSH Medical History CAD (coronary artery disease) Smoker Meniere disease Diverticulosis Panic attack Somnolence Cholelithiasis Dyslipidemia Morbid obesity CAROLYN (obstructive sleep apnea) Essential hypertension Atherosclerotic cardiovascular disease Surgical History Hx of colonoscopy S/P cholecystectomy History of arthroscopy of left knee History of heart artery stent History of tonsillectomy History of cardiac catheterization (~08/2018) Family History Father Hypertension Coronary artery disease Kidney failure Mother No problems noted. Maternal Grandfather Coronary artery disease History of heart attack Brother Crohn's disease Sister No problems noted. Sister No problems noted. Sister No problems noted. 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 - Prescribe antibiotic ear drops with a steroid component for external ear canal inflammation related to external otitis externa. - No systemic antibiotics are necessary at this time, as symptoms have been present for only two days and are likely viral in origin. - Conduct flu and COVID testing to rule out contributory viral causes. - Emphasize symptomatic relief and monitor the progression of symptoms. Patient was informed and verbally consented to the use of an ambient scribe for clinic note documentation during this visit (2) Otitis externa: Code(s): H60.90 - Unspecified otitis externa, unspecified ear Qualifiers: Otitis externa type: other infective Chronicity: acute Laterality: right Qualified Code(s): H60.391 - Other infective otitis externa, right ear Plan: as above Orders: Orders SARS-CoV2/FLU/RSV Today J06.9 - Acute upper respiratory infection, unspecified Medications: New prednisone 20 mg PO QAM 5 tabs 0RF nqefhdct-jbbsrnjue-WP 3.5-10,000-1 mg/mL-unit/mL-% 4 drps otic (ear) right QID 10 mL 0RF 7 days Coding Level of Care Code Est Pt Level 3 (77816) Diagnoses URI, acute J06.9 Other infective acute otitis externa of right ear H60.391 Otitis externa type: other infective Chronicity: acute Laterality: right
[2024-11-22 08:12] VITALS: BP 132/80; PULSE 74; TEMP 37.4; O2SAT 96
== END 2024-11-22 08:49 | disposition home or self-care (01) ==
PROVIDERS: PCP Nurse Practitioner Family; Visit Provider Physician Assistant
DX: J06.9 Acute upper respiratory infection, unspecified (principal); H60.391 Other infective otitis externa, right ear

== ENCOUNTER 2024-11-22 08:01 | Outpatient (REF) | payer OTHER, SELFPAY ==
[2024-11-22 13:03] LABS: Influenza A PCR NEGATIVE (Negative); Influenza B PCR NEGATIVE (Negative); Resp Syncy Virus RNA Qual PCR NEGATIVE (Negative); SARS COV2 PCR INHOUSE POSITIVE (Negative)
== END 2024-11-22 08:02 | disposition home or self-care (01) ==
LOC: HO.LAB 08:01
PROVIDERS: Physician Assistant; PCP Nurse Practitioner Family
DX: J06.9 Acute upper respiratory infection, unspecified (principal); H60.391 Other infective otitis externa, right ear
CPT/HCPCS: 0241U; 99212

== ENCOUNTER 2025-03-01 13:06 | Outpatient (AMB) | payer OTHER, SELFPAY ==
[2025-03-01 13:08] VITALS: BP 132/80; PULSE 66; O2SAT 97; BMI 44.9
--- NOTE | 2025-03-01 13:08 | A.OFFPC_ITS ---
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 Required: No Accompanied by: Self / Same As Patient Allergies bupropion [From Wellbutrin] Adverse Reaction (Severe, Verified 03/01/25 14:04) Unknown versed Adverse Reaction (Intermediate, Uncoded 03/01/25 13:08) Agitated Medication List - Last Reconciled 03/01/25 by Micky Palacios, [employer] INTERN- amlodipine 10 mg PO DAILY aspirin 81 mg PO DAILY atorvastatin 80 mg PO DAILY cetirizine (Zyrtec) 10 mg PO DAILY PRN cholecalciferol (vitamin D3) 50 mcg PO DAILY 90 days fluticasone propionate 50 mcg/actuation 1 spray intranasal Q12H PRN lorazepam 0.5 mg PO DAILY PRN metoprolol succinate ER 200 mg (2 x 100 mg) PO DAILY 90 days montelukast 10 mg PO BEDTIME 90 days nitroglycerin 0.4 mg sublingual Q5M PRN Tobacco use date assessed: 03/01/25 Dental Screening Dental Screen Date: 03/01/25 Did you have a dental visit in the last 12 months?: Yes Did you have a dental problem in the last 6 months where you did not have access to dental care?: No Was dental information given to patient?: Patient has dentist HPI 4 months follow up HPI Details Chief Complaint Morbid obesity and elevated fasting blood glucose History of Present Illness The patient is a 49-year-old male presenting with a follow-up for morbid obesity and elevated fasting blood glucose. The condition of morbid obesity has persis farshad, exacerbating his cardiovascular risk factors, which include coronary artery stenosis. Although he denies chest pain and dyspnea, tobacco use remains a significant concern as he smokes up to a pack per day. His elevated fasting blood glucose level is indicative of underlying glucose metabolism issues, contributing to increased cardiometabolic risk. The patient's history features obstructive sleep apnea, with noted non-compliance to CPAP therapy due to difficulty in mask usage. Fatigue is reported, possibly due to poor management of sleep apnea and obesity. Previous nutritional therapy provided minimal impact; however, he is currently attempting to reduce carbohydrate intake. A new device to treat sleep apnea is under trial, potentially improving his sleep patterns. Addressing morbid obesity, elevated blood glucose, and associated comorbidities necessitates a multidimensional treatment strategy, possibly including a GLP-1 agonist. Social History - Smoking: Smokes up to a pack of cigare ttes per day. - Diet: Attempting to reduce carbohydrat e intake, focusing on eliminating 'bad' carbohydrates. - Exercise: Not discussed. - Substance Use: Smoking only; no alcoho l or drug use mentioned. Health Maintenance - Discussed the potential initiation of a GLP-1 agonist to aid in weight management and glucose control. - Advised dietary modifications to reduc e the intake of bad carbohydrates. - Discussed ongoing efforts to address o bstructive sleep apnea with a new device. Review of Systems Denies chest pain or shortness of breath, denies any CP, dizziness, SÁNCHEZ, blurred vision. Physical Exam General: Cooperative, healthy appearing, comfortable, no acute distress and well developed, morbid obesity Orientation: Patient oriented x3 Limitations: No limitations Head: Normal to inspection Ears: Hearing grossly normal bilaterally Nose: Normal external nose present Face and sinus: Normal facial exam Eyes: Appearance normal, both eyes and all related structures Neck: Normal visual inspection and Yes full ROM Respiratory: Normal respiratory effort and able to speak in complete sentences. Clear to auscultation bilaterally Cardiovascular: Regular rate and rhythm. Normal S1 and S2 GI: Normal to inspection. Soft to palpation and nontender Neuro: Patient oriented x3 Extremities: Normal to inspection Results Plan The plan addresses morbid obesity and elevated fasting glucose levels with the potential initiation of a GLP-1 agonist like Wegovy or Zepbound, to aid in weight management and glucose control. The patient is advised on dietary changes, specifically reducing bad carbohydrates, with recommendations for follow-up cardiology evaluation due to coronary artery stenosis. Smoking cessation efforts are crucial, with potential supportive therapies considered. Sleep apnea is being managed with a new device, monitoring its impact on fatigue and overall sleep quality. The overall approach includes continuous monitoring and evaluation of treatment effects. Discussion Notes During the visit, we discussed the patient's likelihood of benefiting from a GLP-1 agonist, with Wegovy or Zepbound suggested for their positive effects on weight management and glucose control. This intervention aims to address the patient's morbid obesity and elevated fasting glucose while considering coronary artery stenosis. I explained the risk factors associated with smoking and the importance of cessation, offering supportive therapies. The patient received dietary advice focusing on reducing bad carbohydrates. We also addressed sleep apnea management with the trial of a new device, promoting better sleep quality. Follow-up with cardiology was suggested to monitor coronary artery status, and we discussed the importance of close follow-up for all ongoing treatments and i nterventions. Patient Instructions - Start a GLP-1 agonist medication as pr escribed. - Continue efforts to reduce bad carbohy drate intake. - Trial the new device for sleep apnea m anagement to improve sleep quality. - Reduce smoking gradually; seek support if needed for smoking cessation. - Follow up with cardiology for coronary artery evaluation. - Maintain consistent monitoring of gluc ose levels. [facility] Medical History (Updated 03/01/25 @ 14:30 by Micky Palacios [facility]) CAD (coronary artery disease) Smoker Meniere disease Diverticulosis Panic attack Somnolence Cholelithiasis Dyslipidemia Morbid obesity CAROLYN (obstructive sleep apnea) Essential hypertension Atherosclerotic cardiovascular disease Surgical History Hx of colonoscopy S/P cholecystectomy History of arthroscopy of left knee History of heart artery stent History of tonsillectomy History of cardiac catheterization (~08/2018) Family History Father Hypertension Coronary artery disease Kidney failure Mother No problems noted. Maternal Grandfather Coronary artery disease History of heart attack Brother Crohn's disease Sister No problems noted. Sister No problems noted. Sister No problems noted. 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 1. Little interest or pleasure in doing things: not at all 2. Feeling down, depressed, or hopeless: not at all 3. Trouble falling or staying asleep, or sleeping too much: not at all 4. Feeling tired or having little energy: not at all 5. Poor appetite or overeating: not at all 6. Feeling bad about yourself - or that you are a failure or have let yourself or your family down: not at all 7. Trouble concentrating on things, such as reading the newspaper or watching television: not at all 8. Moving or speaking so slowly that other people could have noticed. Or the opposite - being so fidgety or restless that you have been moving around a lot more than usual: not at all 9. Thoughts that you would be better off or of hurting yourself in some way: not at all Total score: 0 Depression Screening Interpretation: Negative Depression Screening Done: Yes 05643 - PHQ-9 Billing: Yes Source: Developed by Drs. Robin Tate, Maryann Koehler, Dov Obrien and colleagues, with an educational erika from [employer]. Thrive Questionnaire Date Thrive assessed: 03/01/25 I am a: Patient What is your living situation today?: I have a steady place to live Within the past 12 months, did the food you bought not last and you didn't have the money to get more?: I choose not to answer this question Within the past 12 months, did you worry whether your food would run out before you got money to buy more?: I choose not to answer this question Do you have trouble paying for medicines?: I choose not to answer this question Do you have trouble getting transportation to medical appointments?: I choose not to answer this question Do you have trouble paying your heating and electricity bill?: I choose not to answer this question Do you have trouble taking care of your child, family member or friend?: I cho ose not to answer this question Do you have trouble with day-to-day activities such as bathing, preparing meals, shopping, managing finances, etc.?: I choose not to answer this question Are you currently unemployed and looking for a job?: I choose not to answer this question Are you interested in more education?: I choose not to answer this question Please select the resources that you would like help with: None Currently or been in a relationship where the following occur: I choose not to answer THRIVE Score: 0 AUDIT C Alcohol Use Questionnaire (AUDIT-C) 1. How often do you have a drink containing alcohol?: Never 3. How often do you have six or more drinks on one occasion?: Never Total Score: 0 Score Reviewed/Action Taken: Yes CHARLES-7 AMB Questionnaire CHARLES-7 Date CHARLES - 7 assessed: 03/01/25 Feeling nervous, anxious, or on edge: 0 = Not at all Not being able to stop or control worryin = Not at all Worrying too much about different things: 0 = Not at all Trouble relaxin = Not at all Being so restless that it is hard to sit still: 0 = Not at all Becoming easily annoyed or irritable: 0 = Not at all Feeling afraid as if something awful might happen: 0 = Not at all Total CHARELS-7 score (0-4 normal; 5-9 mild; 10-14 moderate; 15-21 severe): 0 Source: Developed by Drs. Robin Tate, Maryann Koehler, Dov Obrien and colleagues, with an educational erika from [employer]. CHARLES-7 Assessment Billing CHARLES-7 Assessment Tool: CHARLES-7 Assessment 45785 Physical exam (Primary Care) Vital Signs: Last Vital Signs Pulse 66 03/01/25 13:08 BP 132/80 03/01/25 13:08 Pulse Ox 97 03/01/25 13:08 Oxygen Delivery Method Room Air 03/01/25 13:08 BMI result Body Mass Index 44.9 Tobacco/Smoking Status: Tobacco use Status Tobacco use date assessed 03/01/25 03/01/25 13:10 Patient Tobacco Use Status Current everyday Tobacco 03/01/25 13:10 Tobacco use type Cigarette 03/01/25 13:10 e-Cigarette/Vaping Use Never Used 03/01/25 13:10 PHQ-9: PHQ-9 Score PHQ-9: Total score 0 03/01/25 13:10 Depression Screening Interpretation: Negative Thrive Assessment: Date of Thrive Assessment Date Thrive assessed 03/01/25 03/01/25 13:10 Currently or been in a relationship where the following occur: I choose not to answer Coding Level of Care Code Est Pt Level 4 (56726) Diagnoses Morbid obesity E66.01 Elevated fasting blood sugar R73.01 CAD (coronary artery disease) I25.10 Smoker F17.200 Fatigue R53.83 Additional Codes CHARLES-7 Assessment Billing - CHARLES-7 Assessment Tool: CHARLES-7 Assessment 14011 ([id number]) PHQ-9 - 88233 - PHQ-9 Billing: Yes ([id number]) Assessment & Plan Assessment & Plan (1) Morbid obesity: Comment: Code(s): E66.01 - Morbid (severe) obesity due to excess calories Category: Medical (2) Elevated fasting blood sugar: Code(s): R73.01 - Impaired fasting glucose Category: Medical (3) CAD (coronary artery disease): Comment: w/stent-follows w/Dr. Rodgers Code(s): I25.10 - Atherosclerotic heart disease of [place] coronary artery without angina pectoris Category: Medical (4) Smoker: Code(s): F17.200 - Nicotine dependence, unspecified, uncomplicated Category: Medical (5) Fatigue: Code(s): R53.83 - Other fatigue Category: Medical Plan . Orders: Orders Complete Blood Count Auto Diff Today E66.01 - Morbid (severe) obesity due to excess calories Comprehensive Catarina. Panel Fast Today E66.01 - Morbid (severe) obesity due to excess calories TSH reflex Free T4 Today E66.01 - Morbid (severe) obesity due to excess calories UA CC w/rflx Micro + Cult Today E66.01 - Morbid (severe) obesity due to excess calories Lipid Panel Today E66.01 - Morbid (severe) obesity due to excess calories Referrals Nutrition/Dietitian Referral E66.01 - Morbid (severe) obesity due to excess calories
== END 2025-03-01 14:27 | disposition home or self-care (01) ==
LOC: HO.HMCC 13:06
PROVIDERS: PCP Nurse Practitioner Family; Visit Provider Nurse Practitioner Family
DX: R73.01 Impaired fasting glucose (principal); E66.01 Morbid (severe) obesity due to excess calories; Z68.41 Body mass index [BMI] 40.0-44.9, adult; I25.10 Atherosclerotic heart disease of native coronary artery without angina pectoris; F17.200 Nicotine dependence, unspecified, uncomplicated; R53.83 Other fatigue

== ENCOUNTER → 2025-03-01 13:06 | Outpatient (BNVA) | payer OTHER, SELFPAY | PROVIDERS: PCP Nurse Practitioner Family; Visit Provider Nurse Practitioner Family | DX: E66.01 Morbid (severe) obesity due to excess calories (principal); I25.10 Atherosclerotic heart disease of native coronary artery without angina pectoris; R53.83 Other fatigue; F17.200 Nicotine dependence, unspecified, uncomplicated | CPT/HCPCS: 96127; 99212 ==

== ENCOUNTER 2025-03-02 09:45 | Outpatient (REF) | payer OTHER, SELFPAY ==
[2025-03-02 13:14] LABS: MANUAL DIFF FLAG NO
[2025-03-02 13:29] LABS: Basophils Absolute Auto 0.1 X10*3/uL (0.0-0.2); Basophils Percent Auto 0.5 % (0-2); Eosinophils Absolute Auto 0.2 X10*3/uL (0.0-0.4); Eosinophils Percent Auto 2.1 % (0-4); Hematocrit 46.8 % (42.0-52.0); Hemoglobin 15.7 g/dl (14.0-18.0); Imm Gran Abs Auto 0.04 X10*3/uL (0.00-0.03); Imm Gran Pct Auto 0.4 % (0.0-0.4); Lymphocytes Absolute Auto 2.1 X10*3/uL (1.2-4.9); Lymphocytes Percent Auto 22.8 % (20-40); Mean Corpuscular HGB Conc 33.5 g/dl (31.0-36.0); Mean Corpuscular Hemoglobin 28.7 pg (27.0-33.0); Mean Corpuscular Volume 85.6 fL (80.0-98.0); Mean Platelet Volume 12.2 fL (9.4-12.4); Monocytes Absolute Auto 0.6 X10*3/uL (0.1-1.2); Monocytes Percent Auto 6.3 % (2-11); Neutrophils Absolute Auto 6.4 x10*3/uL (2.0-8.3); Neutrophils Percent Auto 67.9 % (45-73); Platelet Count 239 X10*3/uL (160-400); Red Blood Count 5.47 X10*6/uL (4.60-5.80); Red Cell Distribution Width 13.2 % (11.0-16.0); White Blood Count 9.4 X10*3/uL (4.8-10.8)
[2025-03-02 14:02] LABS: Appearance Urine Hazy; Color Urine DK YELLOW; Glucose Urine UA Negative (Negative); Leukocyte Esterase Urine Negative (Negative); Nitrite Urine Negative (Negative); Specific Gravity - Urine 1.025 (1.005-1.025); Urine Blood Negative (Negative); Urine Ketones Trace mg/dL (Negative); Urine Protein Trace mg/dL (Neg-Trace)
[2025-03-02 14:21] LABS: Alanine Aminotransferase 31 U/L (0-40); Albumin Level 4.4 g/dL (3.5-5.0); Alkaline Phosphatase 117 U/L (39-117); Anion Gap 10 (12-20); Aspartate Amino Transferase 25 U/L (5-37); Bilirubin Total 0.6 mg/dL (0.0-1.0); Blood Urea Nitrogen 19 mg/dL (9-16); Calcium 9.3 mg/dL (8.4-10.2); Carbon Dioxide 25 mmol/L (22-29); Chloride 110 mmol/L (96-108); Cholesterol 126 mg/dL (<200); Estimated Glomerular Filt Rate > 60; Glucose Fasting 102 mg/dL (60-99); HDL Cholesterol 32 mg/dL (>40); LDL Cholesterol Calculated 75 mg/dL (<100); Potassium 3.7 mmol/L (3.3-5.1); Sodium 141 mmol/L (135-145); Total Protein 7.1 g/dL (6.5-8.0); Triglycerides 96 mg/dL (<150)
[2025-03-02 14:40] LABS: TSH reflex Free T4 1.41 uIU/mL (0.32-4.0)
== END 2025-03-02 09:46 | disposition home or self-care (01) ==
LOC: HO.HMGCLDS 09:45
PROVIDERS: PCP Nurse Practitioner Family; Visit Provider Nurse Practitioner Family
DX: E66.01 Morbid (severe) obesity due to excess calories (principal)
CPT/HCPCS: 36415; 80053; 80061; 81003; 84443; 85025

== ENCOUNTER 2025-03-22 12:49 | Outpatient (AMB) | payer OTHER, SELFPAY ==
[2025-03-22 12:55] VITALS: BP 126/68; PULSE 72; BMI 44.6
--- NOTE | 2025-03-22 12:55 | A.OFFVIS_ITS ---
Vital Signs 03/22/25 12:55 Height 5 ft 11 in Weight 319 lb 10.724 oz BMI 44.6 BP 126/68 Blood Pressure Location Lt brachial Position Sitting Pulse 72 Pulse Source Pulse Oximeter Intake Visit Reasons: 1 yr f/up Allergies bupropion [From Wellbutrin] Adverse Reaction (Severe, Verified 03/01/25 14:04) Unknown versed Adverse Reaction (Intermediate, Uncoded 03/01/25 13:08) Agitated Medication List - Last Reconciled 03/22/25 by Keanu Rodgers MD amlodipine 10 mg PO DAILY aspirin 81 mg PO DAILY atorvastatin 80 mg PO DAILY cetirizine (Zyrtec) 10 mg PO DAILY PRN cholecalciferol (vitamin D3) 50 mcg PO DAILY 90 days fluticasone propionate 50 mcg/actuation 1 spray intranasal Q12H PRN lorazepam 0.5 mg PO DAILY PRN metoprolol succinate ER 200 mg (2 x 100 mg) PO DAILY 90 days montelukast 10 mg PO BEDTIME 90 days nitroglycerin 0.4 mg sublingual Q5M PRN tirzepatide (weight loss) (Zepbound) 2.5 mg (0.5 mL) subcut QWEEK HPI Comments Details: Kin returns for follow-up regarding coronary disease. He underwent stenting of his right coronary artery in the past. Since last seen, no cardiac issues. No angina or in fact anything along those lines. Unfortunately, weight is just about the same as before. 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 It seems that he was given Tirzepatide for weight loss but he has not started a due to anxiety. He thinks he might get some side effects. He has obstructive sleep apnea but not able to use CPAP ma . Overall, weight is a big issue just about the same as before. Exercise The patient does not participate in regular exercise due to occupational constraints and lifestyle. His profession as a truck sales manager involves prolonged sedentary periods, significantly limiting opportunities for physical activity and contributing to maintained high weight status [facility] Medical History (Updated 03/01/25 @ 14:30 by Micky Palacios [facility]) CAD (coronary artery disease) Smoker Meniere disease Diverticulosis Panic attack Somnolence Cholelithiasis Dyslipidemia Morbid obesity CAROLYN (obstructive sleep apnea) Essential hypertension Atherosclerotic cardiovascular disease Surgical History Hx of colonoscopy S/P cholecystectomy History of arthroscopy of left knee History of heart artery stent History of tonsillectomy History of cardiac catheterization (~08/2018) Family History Father Hypertension Coronary artery disease Kidney failure Mother No problems noted. Maternal Grandfather Coronary artery disease History of heart attack Brother Crohn's disease Sister No problems noted. Sister No problems noted. Sister No problems noted. 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 Cognitive needs: No Hearing needs: No Vision needs: No Review of Systems Const Denies weakness ENT Denies dizziness Card Denies chest pain, Denies chest pain with activity, Denies syncope, Denies rapid heart rate, Denies pedal edema, Denies edema, Denies leg edema, Denies lightheadedness, Denies palpitations, Denies dyspnea, Denies dyspnea on exertion and Denies orthopnea Resp Denies cough, Denies dyspnea and Denies dyspnea on exertion GI Denies hematochezia and Denies change in stool character Musc Denies abnormal gait, Denies muscle cramps, Denies muscle weakness, Denies numbness, Denies radiating pain into limb and Denies tingling Neuro Denies abnormal gait, Denies dizziness, Denies syncope, Denies numbness, Denies tingling and Denies weakness Endo Denies palpitations Physical Exam Vital Signs: Last Vital Signs Pulse 72 03/22/25 12:55 BP 126/68 03/22/25 12:55 BMI result Body Mass Index 44.6 Const General: comfortable and no acute distress Orientation/consciousness: patient oriented x3 HEENT Other: Unremarkable Head: Yes normal to inspection Neck Neck: Yes normal visual inspection Chest Chest palpation & inspection: normal inspection of the chest Resp Auscultation: clear to auscultation bilaterally Cardio Palpation: normal PMI Heart sounds: S1 normal heart sound present, S2 normal heart sound present, no gallops, no murmurs and no rubs GI Palpation (GI): Soft to palpation Back/Spine/Pelvis Other: unremarkable Skin General skin exam: no rashes or lesions noted Neuro General: patient oriented x3 Extrem General: Yes normal to inspection Psych Mental Status: mental status grossly normal Assessment & Plan Assessment & Plan (1) Atherosclerotic cardiovascular disease: Code(s): I25.10 - Atherosclerotic heart disease of inupiat coronary artery without angina pectoris Category: Medical (2) Morbid obesity: Comment: Code(s): E66.01 - Morbid (severe) obesity due to excess calories Category: Medical (3) Essential hypertension: Code(s): I10 - Essential (primary) hypertension Category: Medical Plan Cardiac studies reviewed. Last cardiac catheterization reviewed. Right coronary artery stent patent. 60% stenosis in the proximal LAD but with good runoff. 40% stenosis in the distal part of mid right coronary artery. Circumflex and left main unremarkable. Norm al IFR but abnormal FFR in the LAD. Last echocardiogram LVEF of 60%. Otherwise unremarkable. Myocardial perfusion imaging study from 2021 showed no evidence of any ischemia or infarction. Clinically stable without any symptoms. Continue long-term aspirin. Blood pressure well controlled on the current regimen continue metoprolol, amlodipine. Continue statins for lipid management. Discussion Notes I reviewed with the patient the likely diagnosis of obesity with accompanying cardiovascular risks and management strategies. We discussed Tirzepatide's potential benefits in facilitating weight reduction though the patient noted fears regarding medication side effects. I advised a controlled trial to manage such side effects. We discussed roofing contractor evaluations, emphasizing their role in tailored management. Alternatives such as sustainable lifestyle practices and anxiety management techniques were covered. Follow-up visits to review progress with weight management interventions were advised. Patient was informed and verbally consented to the use of an ambient scribe for clinic note documentation during this visit. Coding Level of Care Code Est Pt Level 4 (40970) Complex EM visit Add On G2211 Diagnoses Atherosclerotic cardiovascular disease I25.10 Morbid obesity E66.01 Essential hypertension I10
== END 2025-03-22 13:28 | disposition home or self-care (01) ==
LOC: HO.HCS 12:50
PROVIDERS: PCP Nurse Practitioner Family; Visit Provider Internal Medicine
DX: I25.10 Atherosclerotic heart disease of native coronary artery without angina pectoris (principal); E66.01 Morbid (severe) obesity due to excess calories; I10 Essential (primary) hypertension
CPT/HCPCS: 99214; G2211

== ENCOUNTER → 2025-03-22 12:49 | Outpatient (BNVA) | payer OTHER, SELFPAY | PROVIDERS: PCP Nurse Practitioner Family; Visit Provider Internal Medicine | DX: I25.10 Atherosclerotic heart disease of native coronary artery without angina pectoris (principal); I10 Essential (primary) hypertension; E66.01 Morbid (severe) obesity due to excess calories; Z68.41 Body mass index [BMI] 40.0-44.9, adult | CPT/HCPCS: 99212 ==

== ENCOUNTER 2025-04-26 12:16 | Outpatient (AMB) | payer OTHER, SELFPAY ==
--- NOTE | 2025-04-26 13:47 | MHC.OFFWIV ---
Intake Vital Signs 04/26/25 13:50 Weight 320 lb BP 126/80 Blood Pressure Location Rt brachial Position Sitting Pulse 58 Pulse Source Pulse Oximeter Pulse Oximetry (%) 98 Oxygen Delivery Method Room Air Intake Visit Reasons: EP-lower back pain [phone] Intake Note: Patient here for lower back pain. He has a hx of 2 buldging disc. Patient Tobacco Use Status: Current everyday Tobacco user Allergies bupropion [From Wellbutrin] Adverse Reaction (Severe, Verified 04/26/25 13:47) Unknown versed Adverse Reaction (Intermediate, Uncoded 04/26/25 13:47) Agitated Do you need a note to return to daycare/school/sports/work: No HPI HPI Comments History of Present Illness Details 49 y/o Male patient who presents to the walk in clinic with c/o Chronic Lower back pain. Denies any trauma or injury to the back. He does report h/o Bulging Disk - he had PT then with good relief. Denies Numbness or tingling. Denies Bowel or bladder symptoms. [facility] Medical History (Updated 04/26/25 @ 11:22 by Micky Palacios, [facility]) CAD (coronary artery disease) Smoker Meniere disease Diverticulosis Panic attack Somnolence Cholelithiasis Dyslipidemia Morbid obesity CAROLYN (obstructive sleep apnea) Essential hypertension Atherosclerotic cardiovascular disease Surgical History Hx of colonoscopy S/P cholecystectomy History of arthroscopy of left knee History of heart artery stent History of tonsillectomy History of cardiac catheterization (~08/2018) Family History Father Hypertension Coronary artery disease Kidney failure Mother No problems noted. Maternal Grandfather Coronary artery disease History of heart attack Brother Crohn's disease Sister No problems noted. Sister No problems noted. Sister No problems noted. 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 Cognitive needs: No Hearing needs: No Vision needs: No Review of Systems Const All systems reviewed & are unremarkable except as noted in HPI and below Physical Exam Vital Signs: Last Vital Signs Pulse 58 04/26/25 13:50 BP 126/80 04/26/25 13:50 Pulse Ox 98 04/26/25 13:50 Oxygen Delivery Method Room Air 04/26/25 13:50 Const General: no acute distress; No comfortable Nutritional Appearance: obese morbidly obese Orientation/consciousness: patient oriented x3 Back/Spine/Pelvis Back: back tenderness Thoracic/Lumbar Spine: pain with thoraco-lumbar ROM, paraspinal muscle tenderness, thoraco-lumbar spasm and lumbar spinal tenderness Neuro General: patient oriented x3 Psych Speech and movement: Normal speech and movement present Assessment & Plan Assessment & Plan (1) Chronic radicular pain of lower back: Code(s): M54.16 - Radiculopathy, lumbar region; G89.29 - Other chronic pain Plan: Ordered Flexeril, Prednisone and Meloxicam. PCP placed Referral to Physical Therapy. Medications: New meloxicam 15 mg PO DAILY 30 tabs 0RF 30 days G89.29 - Other chronic pain, M54.16 - Radiculopathy, lumbar region prednisone 20 mg PO DAILY 10 tabs 0RF G89.29 - Other chronic pain, M54.16 - Radiculopathy, lumbar region cyclobenzaprine 10 mg PO BEDTIME 14 tabs 0RF G89.29 - Other chronic pain, M54.16 - Radiculopathy, lumbar region Coding Level of Care Code Est Pt Level 4 (16118) Diagnoses Chronic radicular pain of lower back M54.16; G89.29 Time Spent (min) 20
[2025-04-26 13:50] VITALS: BP 126/80; PULSE 58; O2SAT 98
== END 2025-04-26 14:34 | disposition home or self-care (01) ==
PROVIDERS: PCP Nurse Practitioner Family; Visit Provider Nurse Practitioner Family
DX: M54.16 Radiculopathy, lumbar region (principal); G89.29 Other chronic pain

== ENCOUNTER → 2025-04-26 12:16 | Outpatient (BNVA) | payer OTHER, SELFPAY | PROVIDERS: PCP Nurse Practitioner Family; Visit Provider Nurse Practitioner Family | DX: M54.16 Radiculopathy, lumbar region (principal); G89.29 Other chronic pain | CPT/HCPCS: 99212 ==

== ENCOUNTER 2025-05-09 13:16 | Outpatient (REF) | payer OTHER, SELFPAY ==
--- NOTE | ~2025-05-09 | XR_ITS ---
EXAMINATION: XR LUMBOSACRAL SPINE CLINICAL INFORMATION: M54.16 - Radiculopathy, lumbar region COMPARISON: 12/09/2017. TECHNIQUE: Three views of the lumbosacral spine. FINDINGS: Diffusely increased density of the bony structures. There is a trace levoconvex scoliosis, possibly positional. There is a normal lordosis. There is no subluxation. There is no fracture, compression deformity, or suspicious bone lesion. There is mild diffuse disc degeneration, most significant at L3-4, where there is a large bridging ventral disc osteophyte. There is normal facet alignment. There are mild degenerative facet changes spanning L3-S1. The sacrum is intact. There are mild arthritic changes in both SI joints. There are cholecystectomy clips. Soft tissues appear normal aside from early vascular calcifications. XR/XR lumbar spine 2-3V IMPRESSION: 1. No acute findings of the lumbar spine. 2. Mild to moderate spondylosis spanning L3-S1. Electronically signed by: Arnaldo Buck MD 05/09/2025 01:49 PM EDT
== END 2025-05-09 13:17 | disposition home or self-care (01) ==
LOC: HO.HMGCX 13:16
PROVIDERS: PCP Nurse Practitioner Family; Visit Provider Nurse Practitioner Family
DX: G89.29 Other chronic pain (principal); M54.16 Radiculopathy, lumbar region
CPT/HCPCS: 72100

== ENCOUNTER → 2025-05-09 13:20 | Outpatient (BNV) | payer OTHER, SELFPAY | PROVIDERS: PCP Nurse Practitioner Family; Visit Provider Radiology Diagnostic Radiology | DX: M47.896 Other spondylosis, lumbar region (principal) | CPT/HCPCS: 72100 ==

== ENCOUNTER 2025-05-16 07:00 | Outpatient (RCR) | payer OTHER, SELFPAY ==
--- NOTE | 2025-05-05 11:36 | MHC.PT.EP ---
[facility] [place] Office [place] Office [place] Office [address] Gilberto Katz [address] [phone] F: [phone] F: [phone] F: [phone] F: [phone] Physical Therapy Plan of Care Date of Evaluation: 05/05/25 Date of Surgery: n/a Diagnosis: radiculopathy, lumbar region Assessment: Patient is a 49 year old male presenting to PT with complaints of pain in his low back. Pt reports onset of pain began years ago with recent worsening due to originally to a fall but recently due to insidious onset. He presents today with impairments in pain, radicular sx, lumbar ROM, hip strength, core strength, tenderness to palpation. 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 Pt expresses care home goal of reducing pain, and is motivated to work towards this in PT. Clinical presentation today is most consistent with signs and sx associated with low back pain and pt will benefit from skilled PT 2 week x 4 weeks to address the following problems and impairments noted upon evaluation: pain, radicular sx, lumbar ROM, hip strength, core strength, tenderness to palpation. These problems limit the patient with the following functional activities: work, standing, ADLs, sleeping, bending, lifting. The prescribed treatment plan of care is medically necessary. Co-morbidities of HTN were identified and taken into considerations of plan of care. Pt was educated on HEP, role of PT, prognosis, POC. Frequency and Duration: The patient will be seen 2 x week x 4 weeks Short Term Goals: Pt will demonstrate centralization of sx in 2 weeks. Pt will demonstrate improved hip MMT strength by 1/3 grade in 2 weeks. Pt will demonstrate less tenderness to palpation at piriformis in 2 weeks. Mcc Goals: Pt will demonstrate improved Gildardo score by 10% in 4 weeks for improved functional mobility. Pt will demonstrate ability to work with min to no pain in 4 weeks for return to PLOF at work. Pt will demonstrate ability to stand and ambulate for prolonged periods of time with min to no pain in 4 weeks for return to PLOF. Treatment Plan: Modalities to reduce pain, spasms and effusion. Manual therapy to restore motion and function. Therapeutic exercise to improve strength and flexibility. Neuromuscular re-education for posture and balance. Therapeutic activities to return to functional activities of daily living. Electronically signed by: Bella De La Paz, PT, DPT, ATC Please sign and return to therapist. Thank you for your referral.
--- NOTE | 2025-06-13 10:37 | MHC.PT.DC ---
[facility] [place] Office [place] Office [place] Office [address] Gilberto Katz [address] [phone] F: [phone] F: [phone] F: [phone] F: [phone] Physical Therapy Discharge Report Diagnosis: radiculopathy, lumbar region Date of Surgery: n/a Date of Evaluation: 05/05/25 Date of Discharge: 06/13/25 Treatments to Date: 3 Cancellations to Date: 0 No Shows to Date: 0 Discharge Status: Recommend MD Follow-up Discharge Summary: Pt had been placed on 30 day hold. This has ended and he has not returned therefore to d/c. Electronically signed by: Bella De La Paz, PT, DPT, ATC Please sign and return to therapist. Thank you for your referral.
== END 2025-06-13 10:37 | disposition home or self-care (01) ==
LOC: HO.PTCHIC 07:00
PROVIDERS: PCP Nurse Practitioner Family; Visit Provider Nurse Practitioner Family
DX: M54.16 Radiculopathy, lumbar region (principal); G89.29 Other chronic pain
CPT/HCPCS: 97012; 97110; 97140; 97161

== ENCOUNTER 2025-07-13 11:16 | Outpatient (AMB) | payer OTHER, SELFPAY ==
[2025-07-13 11:21] VITALS: BP 136/80; PULSE 58; O2SAT 98; BMI 45.5
--- NOTE | 2025-07-13 11:21 | A.OFFPC_ITS ---
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 Required: No Accompanied by: Self / Same As Patient Allergies bupropion (From Wellbutrin) Adverse Reaction (Severe, Verified 07/13/25 11:21) Unknown versed Adverse Reaction (Intermediate, Uncoded 04/26/25 13:47) Agitated Medication List - Last Reconciled 07/13/25 by Micky Palacios [facility]- amlodipine 10 mg PO DAILY aspirin 81 mg PO DAILY atorvastatin 80 mg PO DAILY cetirizine (Zyrtec) 10 mg PO DAILY PRN cholecalciferol (vitamin D3) 50 mcg PO DAILY 90 days fluticasone propionate 50 mcg/actuation 1 spray intranasal Q12H PRN lorazepam 0.5 mg PO DAILY PRN metoprolol succinate ER 200 mg (2 x 100 mg) PO DAILY 90 days montelukast 10 mg PO BEDTIME 90 days nicotine 1 patch transdermal DAILY nicotine (polacrilex) 2 mg buccal Q4H 30 days nitroglycerin 0.4 mg sublingual Q5M PRN Tobacco use date assessed: 03/01/25 Dental Screening Dental Screen Date: 03/01/25 HPI 4 months follow up HPI Details Chief Complaint The patient reports persistent fatigue. History of Present Illness The patient is a 50-year-old male presenting with fatigue. 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 The patient smokes approximately one and a half packs of cigarettes per day, which has increased due to downtime during work shifts. The patient has a history of obstructive sleep apnea but does not tolerate CPAP therapy and does not qualify for the Inspire mechanism. In my opinion, his fatigue is believed to be exacerbated by his smoking, obesity, and untreated sleep apnea. The patient has previously attempted smoking cessation using nicotine patches, which were somewhat effective, and he has successfully quit smoking cold turkey for three years in the past. He plans to use nicotine patches and gum to aid in quitting smoking again, along with increased water intake to manage oral fixation and improve hydration. The patient denies any chest pain or increased dyspnea but reports a burning sensation when smoking heavily. He is aware that his symptoms may worsen with age and continued smoking. The patient qualifies for a low-dose CT scan for lung cancer screening due to his age and smoking history. 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 - Substance Use: Smokes approximately on e and a half packs of cigarettes per day. - Weight Management: Morbidly obese, con tributing to fatigue and sleep apnea. Health Maintenance - Smoking cessation: Plan to use nicotin e patches and gum, along with increased water intake. - Lung cancer screening: Scheduled for l ow-dose CT scan due to smoking history. Review of Systems - Respiratory: Denies chest pain, denies increased dyspnea, reports burning sensation with heavy smoking. Physical Exam General: Cooperative, healthy appearing, comfortable, no acute distress and well developed, orbidly obese Orientation: Patient oriented x3 Limitations: No limitations Head: Normal to inspection Ears: Hearing grossly normal bilaterally Nose: Normal external nose present Face and sinus: Normal facial exam Eyes: Appearance normal, both eyes and all related structures Neck: Normal visual inspection and Yes full ROM Respiratory: Normal respiratory effort and able to speak in complete sentences. Clear/dim to auscultation bilaterally Cardiovascular: Regular rate and rhythm. Normal S1 and S2 GI: Normal to inspection. Soft to palpation and nontender Skin: No rashes or lesions noted Neuro: Patient oriented x3 Extremities: Normal to inspection Results Plan The primary goal for this visit is to address the patient's fatigue and smoking cessation. Given the patient's history of obstructive sleep apnea and intolerance to CPAP, alternative strategies for managing his condition were discussed. The patient was advised to quit smoking, with a plan to use nicotine patches and gum to aid cessation, along with increased water intake to manage oral fixation and improve hydration. The patient was informed about the risks associated with continued smoking, including worsening symptoms and increased risk of lung cancer. He qualifies for a low-dose CT scan for lung cancer screening, which has been scheduled. Follow- up is planned in three to four months to assess progress and adjust the management plan as needed. Discussion Notes I discussed with the patient the importance of quitting smoking and the potential health benefits, including reduced fatigue and improved respiratory fu nction. We reviewed the use of nicotine patches and gum as part of the cessation plan, emphasizing the need for increased water intake to manage oral fixation and improve hydration. I also informed him about the risks of continued smoking, including the potential for worsening symptoms and increased risk of lung cancer, and will schedule him with our low-dose CT scan program for screening. We agreed on a follow-up in three to four months to monitor progress and adjust the management plan as necessary. He will contact me via portal in one month with how his smoking habit is doing. Patient Instructions - Use nicotine patches and gum to help q uit smoking. - Increase water intake to manage oral f ixation and improve hydration. - Schedule and attend a low-dose CT scan for lung cancer screening. - [facility] Medical History CAD (coronary artery disease) Smoker Meniere disease Diverticulosis Panic attack Somnolence Cholelithiasis Dyslipidemia Morbid obesity CAROLYN (obstructive sleep apnea) Essential hypertension Atherosclerotic cardiovascular disease Surgical History Hx of colonoscopy S/P cholecystectomy History of arthroscopy of left knee History of heart artery stent History of tonsillectomy History of cardiac catheterization (~08/2018) Family History Father Hypertension Coronary artery disease Kidney failure Mother No problems noted. Maternal Grandfather Coronary artery disease History of heart attack Brother Crohn's disease Sister No problems noted. Sister No problems noted. Sister No problems noted. 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 Cognitive needs: No Hearing needs: No Vision needs: No Questionnaire Thrive Questionnaire Date Thrive assessed: 03/01/25 I am a: Patient What is your living situation today?: I have a steady place to live Within the past 12 months, did the food you bought not last and you didn't have the money to get more?: I choose not to answer this question Within the past 12 months, did you worry whether your food would run out before you got money to buy more?: I choose not to answer this question Do you have trouble paying for medicines?: I choose not to answer this question Do you have trouble getting transportation to medical appointments?: I choose not to answer this question Do you have trouble paying your heating and electricity bill?: I choose not to answer this question Do you have trouble taking care of your child, family member or friend?: I choose not to answer this question Do you have trouble with day-to-day activities such as bathing, preparing meals, shopping, managing finances, etc.?: I choose not to answer this question Are you currently unemployed and looking for a job?: I choose not to answer this question Are you interested in more education?: I choose not to answer this question Please select the resources that you would like help with: None Currently or been in a relationship where the following occur: I choose not to answer THRIVE Score: 0 CHARLES-7 AMB Questionnaire CHARLES-7 Date CHARLES - 7 assessed: 03/01/25 Source: Developed by Drs. Robin Tate, Maryann Koehler, Dov Obrien and colleagues, with an educational erika from [employer]. Physical exam (Primary Care) Vital Signs: Last Vital Signs Pulse 58 07/13/25 11:21 BP 136/80 07/13/25 11:21 Pulse Ox 98 07/13/25 11:21 Oxygen Delivery Method Room Air 07/13/25 11:21 BMI result Body Mass Index 45.5 Tobacco/Smoking Status: Tobacco use Status Tobacco use date assessed 03/01/25 07/13/25 11:21 Patient Tobacco Use Status Current everyday Tobacco 07/13/25 11:21 Tobacco use type Cigarette 07/13/25 11:21 e-Cigarette/Vaping Use Never Used 07/13/25 11:21 Thrive Assessment: Date of Thrive Assessment Date Thrive assessed 03/01/25 07/13/25 11:21 Currently or been in a relationship where the following occur: I choose not to answer Coding Level of Care Code Est Pt Level 3 (69160) Diagnoses Smoking F17.200 CAROLYN (obstructive sleep apnea) G47.33 Morbid obesity E66.01 Fatigue R53.83 Assessment & Plan Assessment & Plan (1) Smoking: Code(s): F17.200 - Nicotine dependence, unspecified, uncomplicated Category: Social Hx (2) CAROLYN (obstructive sleep apnea): Code(s): G47.33 - Obstructive sleep apnea (adult) (pediatric) Category: Medical (3) Morbid obesity: Comment: Code(s): E66.01 - Morbid (severe) obesity due to excess calories Category: Medical (4) Fatigue: Code(s): R53.83 - Other fatigue Category: Medical Plan . Orders: Orders Complete Blood Count Auto Diff Today E66.01 - Morbid (severe) obesity due to excess calories, F17.200 - Nicotine dependence, unspecified, uncomplicated, G47.33 - Obstructive sleep apnea (adult) (pediatric), R53.83 - Other fatigue Comprehensive [place]. Panel Fast Today E66.01 - Morbid (severe) obesity due to excess calories, F17.200 - Nicotine dependence, unspecified, uncomplicated, G47.33 - Obstructive sleep apnea (adult) (pediatric), R53.83 - Other fatigue Lipid Panel Today E66.01 - Morbid (severe) obesity due to excess calories, F17.200 - Nicotine dependence, unspecified, uncomplicated, G47.33 - Obstructive sleep apnea (adult) (pediatric), R53.83 - Other fatigue TSH reflex Free T4 Today E66.01 - Morbid (severe) obesity due to excess calories, F17.200 - Nicotine dependence, unspecified, uncomplicated, G47.33 - Obstructive sleep apnea (adult) (pediatric), R53.83 - Other fatigue UA CC w/rflx Micro + Cult Today E66.01 - Morbid (severe) obesity due to excess calories, F17.200 - Nicotine dependence, unspecified, uncomplicated, G47.33 - Obstructive sleep apnea (adult) (pediatric), R53.83 - Other fatigue Testosterone, Free/Total Today E66.01 - Morbid (severe) obesity due to excess calories, F17.200 - Nicotine dependence, unspecified, uncomplicated, G47.33 - Obstructive sleep apnea (adult) (pediatric), R53.83 - Other fatigue Vitamin D 25-OH Total Today E66.01 - Morbid (severe) obesity due to excess calories, F17.200 - Nicotine dependence, unspecified, uncomplicated, G47.33 - Obstructive sleep apnea (adult) (pediatric), R53.83 - Other fatigue Referrals Lung Cancer Screening Referral F17.200 - Nicotine dependence, unspecified, uncomplicated Medications: New nicotine 1 patch transdermal DAILY 28 ea 0RF nicotine (polacrilex) 2 mg buccal Q4H 50 ea 0RF 30 days
== END 2025-07-13 12:25 | disposition home or self-care (01) ==
LOC: HO.HMCC 11:17
PROVIDERS: PCP Nurse Practitioner Family; Visit Provider Nurse Practitioner Family
DX: G47.33 Obstructive sleep apnea (adult) (pediatric) (principal); F17.210 Nicotine dependence, cigarettes, uncomplicated; E66.01 Morbid (severe) obesity due to excess calories; Z68.42 Body mass index [BMI] 45.0-49.9, adult; R53.83 Other fatigue

== ENCOUNTER → 2025-07-13 11:16 | Outpatient (BNVA) | payer OTHER, SELFPAY | PROVIDERS: PCP Nurse Practitioner Family; Visit Provider Nurse Practitioner Family | DX: E66.01 Morbid (severe) obesity due to excess calories (principal); R53.83 Other fatigue; G47.33 Obstructive sleep apnea (adult) (pediatric); F17.210 Nicotine dependence, cigarettes, uncomplicated; Z68.42 Body mass index [BMI] 45.0-49.9, adult | CPT/HCPCS: 99212 ==

== ENCOUNTER 2025-11-21 08:44 | Outpatient (AMB) | payer OTHER, SELFPAY ==
--- NOTE | 2025-11-21 08:52 | A.OFFVIS_ITS ---
Vital Signs 11/21/25 08:53 Height 5 ft 11 in Weight 321 lb 13.998 oz BMI 44.9 BP 140/78 H Blood Pressure Location Lt brachial Position Sitting Pulse 56 Pulse Source Monitor Intake Visit Reasons: 6 mth f/up r/s 09-20-25 Allergies bupropion (From Wellbutrin) Adverse Reaction (Severe, Verified 07/13/25 11:21) Unknown versed Adverse Reaction (Intermediate, Uncoded 04/26/25 13:47) Agitated Medication List - Last Reconciled 11/21/25 by Keanu Rodgers MD amlodipine 10 mg PO DAILY aspirin 81 mg PO DAILY atorvastatin 80 mg PO DAILY cetirizine (Zyrtec) 10 mg PO DAILY PRN cholecalciferol (vitamin D3) 50 mcg PO DAILY 90 days fluticasone propionate 50 mcg/actuation 1 spray intranasal Q12H PRN lorazepam 0.5 mg PO DAILY PRN metoprolol succinate ER 200 mg (2 x 100 mg) PO DAILY 90 days montelukast 10 mg PO BEDTIME 90 days nicotine 1 patch transdermal DAILY nicotine (polacrilex) 2 mg buccal Q4H 30 days nitroglycerin 0.4 mg sublingual Q5M PRN HPI Comments Details: Kin returns for follow-up regarding coronary disease. He underwent stenting of his right coronary artery in the past. Overall, he is doing well. No cardiac symptoms like angina or in fact anything along those lines. Weight is just about the same as before. He was given Tirzepatide for weight loss but he has not started a due to anxiety. He thinks he might get some side effects. He has obstructive sleep apnea, but not able to use CPAP mask. Otherwise, doing well without any specific cardiac concerns. Compliant with medications. Has also cut back on cigarettes. [facility] Medical History CAD (coronary artery disease) Smoker Meniere disease Diverticulosis Panic attack Somnolence Cholelithiasis Dyslipidemia Morbid obesity CAROLYN (obstructive sleep apnea) Essential hypertension Atherosclerotic cardiovascular disease Surgical History Hx of colonoscopy S/P cholecystectomy History of arthroscopy of left knee History of heart artery stent History of tonsillectomy History of cardiac catheterization (~08/2018) Family History Father Hypertension Coronary artery disease Kidney failure Mother No problems noted. Maternal Grandfather Coronary artery disease History of heart attack Brother Crohn's disease Sister No problems noted. Sister No problems noted. Sister No problems noted. 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 Cognitive needs: No Hearing needs: No Vision needs: No Review of Systems Const Denies weakness ENT Denies dizziness Card Denies chest pain, Denies chest pain with activity, Denies syncope, Denies rapid heart rate, Denies pedal edema, Denies edema, Denies leg edema, Denies lightheadedness, Denies palpitations, Denies dyspnea, Denies dyspnea on exertion and Denies orthopnea Resp Denies cough, Denies dyspnea and Denies dyspnea on exertion GI Denies hematochezia and Denies change in stool character Musc Denies abnormal gait, Denies muscle cramps, Denies muscle weakness, Denies numbness, Denies radiating pain into limb and Denies tingling Neuro Denies abnormal gait, Denies dizziness, Denies syncope, Denies numbness, Denies tingling and Denies weakness Endo Denies palpitations Physical Exam Vital Signs: Last Vital Signs Pulse 56 11/21/25 08:53 BP 140/78 H 11/21/25 08:53 BMI result Body Mass Index 44.9 Const General: comfortable and no acute distress Orientation/consciousness: patient oriented x3 HEENT Other: Unremarkable Head: Yes normal to inspection Neck Neck: Yes normal visual inspection Chest Chest palpation & inspection: normal inspection of the chest Resp Auscultation: clear to auscultation bilaterally Cardio Palpation: normal PMI Heart sounds: S1 normal heart sound present, S2 normal heart sound present, no gallops, no murmurs and no rubs GI Palpation (GI): Soft to palpation Back/Spine/Pelvis Other: unremarkable Skin General skin exam: no rashes or lesions noted Neuro General: patient oriented x3 Extrem General: Yes normal to inspection Psych Mental Status: mental status grossly normal Office Procedures EKG Details: EKG with sinus bradycardia at 56/Min; nonspecific intraventricular conduction defect; [place] [id number], Complete Assessment & Plan Assessment & Plan (1) Atherosclerotic cardiovascular disease: Code(s): I25.10 - Atherosclerotic heart disease of [place] coronary artery without angina pectoris Category: Medical (2) Morbid obesity: Comment: Code(s): E66.01 - Morbid (severe) obesity due to excess calories Category: Medical (3) Essential hypertension: Code(s): I10 - Essential (primary) hypertension Category: Medical Plan Cardiac studies reviewed. Last cardiac catheterization reviewed. Right coronary artery stent patent. 60% stenosis in the proximal LAD but with good runoff. 40% stenosis in the distal part of mid right coronary artery. Circumflex and left main unremarkable. Normal IFR but abnormal FFR in the LAD. Last echocardiogram LVEF of 60%. Otherwise unremarkable. Myocardial perfusion imaging study from 2021 showed no evidence of any ischemia or infarction. Overall, cardiac status is stable without any ongoing symptoms. He may continue the current medical regimen. On aspirin, beta-blockers, blood pressure medications and statins. Continue efforts at weight loss. Follow up in 6 months time. Patient was informed and verbally consented to the use of an ambient scribe for clinic note documentation during this visit. Patient Instructions: - You plan to start the weight loss injection, tirzepatide, after your upcoming appointment with your primary care doctor. - Continue your efforts to quit smoking; you have made great progress in cutting back. - Your shortness of breath is likely due to your weight and smoking history. - You do not have any signs of heart-related chest pain at this time. - Follow up in six months to check on your progress. Coding Level of Care Code Est Pt Level 4 (22402) Add On Problem Visit Only Diagnoses Atherosclerotic cardiovascular disease I25.10 Morbid obesity E66.01 Essential hypertension I10 CPT Codes EKG - CPT: 21450-[id number], Complete ([id number])
[2025-11-21 08:53] VITALS: BP 140/78; PULSE 56; BMI 44.9
== END 2025-11-21 09:17 | disposition home or self-care (01) ==
LOC: HO.HCS 08:45
PROVIDERS: PCP Nurse Practitioner Family; Visit Provider Internal Medicine
DX: I25.10 Atherosclerotic heart disease of native coronary artery without angina pectoris (principal); E66.01 Morbid (severe) obesity due to excess calories; I10 Essential (primary) hypertension
CPT/HCPCS: 93010; 99214

== ENCOUNTER → 2025-11-21 08:44 | Outpatient (BNVA) | payer OTHER, SELFPAY | PROVIDERS: PCP Nurse Practitioner Family; Visit Provider Internal Medicine | DX: I10 Essential (primary) hypertension (principal); I25.10 Atherosclerotic heart disease of native coronary artery without angina pectoris; E66.01 Morbid (severe) obesity due to excess calories; Z68.41 Body mass index [BMI] 40.0-44.9, adult; F17.210 Nicotine dependence, cigarettes, uncomplicated | CPT/HCPCS: 93005; 99212 ==

== ENCOUNTER 2025-11-23 11:24 | Outpatient (AMB) | payer OTHER, SELFPAY ==
--- NOTE | 2025-11-23 11:46 | AM.OFFWIN_ITS ---
Intake Vital Signs 11/23/25 11:49 Height 5 ft 11 in Weight 321 lb BMI 44.8 BP 166/80 H Blood Pressure Location Lt brachial Position Sitting Pulse 63 Pulse Source Pulse Oximeter Temp 98.3 F Temp Source Oral Pulse Oximetry (%) 96 Oxygen Delivery Method Room Air Comment High BP: pt reports not taking BP meds yet today. notified provider Intake Visit Reasons: EP Possible sinus infection Intake Note: pt presents with worening sinus pain, pressure and RT ear pain over the last few days Patient Tobacco Use Status: Current everyday Tobacco user Allergies bupropion (From Wellbutrin) Adverse Reaction (Severe, Verified 11/23/25 11:50) Unknown versed Adverse Reaction (Intermediate, Uncoded 11/23/25 11:50) Agitated Do you need a note to return to daycare/school/sports/work: No HPI HPI Comments History of Present Illness Details History of Present Illness - The patient is a 50 year old male pres enting with a sinus infection. - He reports the onset of sinus infectio n symptoms two days ago and is seeking treatment as he is traveling to [place] in six hours. - He has a history of recurrent sinus in fections, which has improved since his tonsillectomy. - He takes Xyzal daily for allergies and has a history of using Zyrtec, Flonase, and montelukast. - Regarding past antibiotic treatments, he notes that a Z-Samson was ineffective, but a 10-day course of another antibiotic worked, although slowly. - His record shows a 10-day course of am oxicillin in May, and he mentions that Augmentin and prednisone are typically prescribed for his condition. - He denies smoking or sick contacts. - He denies sick contacts, CP, SOB, abd pain, or n/v/d. - He leaves for [place] today. Physical Exam General: Cooperative, healthy appearing, comfortable, no acute distress and well developed Head: Normal to inspection Ears: Hearing grossly normal bilaterally. No tragus or mastoid tenderness noted. Auditory canals clear bilaterally. TM's normal, not bulging. No fluid noted. Nose: Normal external nose present. Moist mucosa. Turbinates normal bilaterally, not boggy. Face and sinus: Tenderness to palpation of the frontal and maxillary sinuses bilaterally. Neck: Normal visual inspection and Yes full ROM. No lymphadenopathy noted. Respiratory: Normal respiratory effort and able to speak in complete sentences. Clear to auscultation bilaterally. No w/r/r noted. Cardiovascular: Regular rate and rhythm. Normal S1 and S2. No m/r/g noted. GI: Normal to inspection. Soft to palpation and nontender, nondistended. No guarding noted. Skin: No rashes or lesions noted [facility] Medical History CAD (coronary artery disease) Smoker Meniere disease Diverticulosis Panic attack Somnolence Cholelithiasis Dyslipidemia Morbid obesity CAROLYN (obstructive sleep apnea) Essential hypertension Atherosclerotic cardiovascular disease Surgical History Hx of colonoscopy S/P cholecystectomy History of arthroscopy of left knee History of heart artery stent History of tonsillectomy History of cardiac catheterization (~08/2018) Family History Father Hypertension Coronary artery disease Kidney failure Mother No problems noted. Maternal Grandfather Coronary artery disease History of heart attack Brother Crohn's disease Sister No problems noted. Sister No problems noted. Sister No problems noted. 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 Cognitive needs: No Hearing needs: No Vision needs: No Review of Systems Const All systems reviewed & are unremarkable except as noted in HPI and below Physical Exam Vital Signs: Last Vital Signs Temp 98.3 F 11/23/25 11:49 Pulse 63 11/23/25 11:49 BP 166/80 H 11/23/25 11:49 Pulse Ox 96 11/23/25 11:49 Oxygen Delivery Method Room Air 11/23/25 11:49 BMI result Body Mass Index 44.8 Assessment & Plan Assessment & Plan (1) Sinus congestion: Code(s): R09.81 - Nasal congestion Plan Most likely allergic rhinitis vs sinusitis vs URI vs covid vs RSV vs flu plan - will order a covid/flu/RSV swab to r/o viral illness - tylenol or motrin as needed for pain or fever - continue with home medications - Augmentin BID for 7 days - prednisone burst for 5 days - follow up with PCP Medications: New prednisone 40 mg (2 x 20 mg) PO DAILY 10 tabs 0RF 5 days amoxicillin-pot clavulanate 875-125 mg 1 tab PO Q12H 14 tabs 0RF Coding Level of Care Code Est Pt Level 3 (39127) Diagnoses Sinus congestion R09.81
[2025-11-23 11:49] VITALS: BP 166/80; PULSE 63; TEMP 36.8; O2SAT 96; BMI 44.8
== END 2025-11-23 12:26 | disposition home or self-care (01) ==
PROVIDERS: PCP Nurse Practitioner Family; Visit Provider Physician Assistant Medical
DX: R09.81 Nasal congestion (principal)

== ENCOUNTER 2025-11-23 11:24 | Outpatient (REF) | payer OTHER, SELFPAY ==
[2025-11-23 16:41] LABS: Resp Syncy Virus RNA Qual PCR NEGATIVE (Negative); SARS COV2 PCR INHOUSE NEGATIVE (Negative)
== END 2025-11-23 11:25 | disposition home or self-care (01) ==
LOC: HO.LNP 11:24
PROVIDERS: PCP Nurse Practitioner Family; Visit Provider Physician Assistant Medical
DX: R09.81 Nasal congestion (principal)
CPT/HCPCS: 87637; 99212